=== PATIENT | female | born 1945 | race Caucasian/White ===

== ENCOUNTER → 2016-08-17 | Outpatient (CLI) | payer OTHER ==
[2014-04-19 22:51] VITALS: BP 181/75
--- NOTE | 2016-08-17 16:48 | CARD ---
APPROVED REPORT EXAM: Two-dimensional and M-mode echocardiogram with Doppler and color Doppler. Other Information Quality : GoodHR: 63bpm Rhythm : NSR INDICATION Dyspnea ELEVATED BNP 2D DIMENSIONS RVDd3.0 (2.9-3.5cm)Left Atrium(2D)4.0 (1.6-4.0cm) IVSd1.0 (0.7-1.1cm)Aortic Root(2D)2.5 (2.0-3.7cm) LVDd4.9 (3.9-5.9cm)LVOT Diameter2.0 (1.8-2.4cm) PWd1.0 (0.7-1.1cm)LVDs3.7 (2.5-4.0cm) FS (%) 24.6 %SV55.1 ml LVEF(%)52.3 (>50%) Aortic Valve AoV Peak Kenyon.145.3cm/sAoV VTI33.2cm AO Peak GR.8.4mmHgLVOT Peak Kenyon.99.7cm/s AO Mean GR.5mmHgAVA (VMAX)2.05cm2 RYAN (VTI)2.30cm2 Mitral Valve MV E Tlxxstqc466.2cm/sMV E Peak Gr.6mmHg MV DECEL [id number] A Sdiqirmu39.5cm/s MV E Mean Gr.2mmHgE/A Ratio1.3 MV A Bupmnryp729pu Tricuspid Valve TR P. Sslopyxt511ms/sRAP FEEIFALS4mzUr TR Peak Gr.13nsAgCUCJ78lzKl Pulmonary Vein S1 Gpifodyz75.1cm/sD2 Yhkxbebj14.0cm/s PVa kkgmgene04gknt LEFT VENTRICLE The left ventricle is normal size. There is normal left ventricular wall thickness. The left ventricu lar systolic function is normal and the ejection fraction is within normal range. The Ejection Fracti on is 50-55%. There is normal LV segmental wall motion. The left ventricular diastolic function and f illing is normal for age. There is no ventricular septal defect visualized. RIGHT VENTRICLE The right ventricle is normal size. There is normal right ventricular wall thickness. The right ventr icular systolic function is normal. ATRIA The left atrium size is normal. The right atrium size is normal. The interatrial septum is intact wit h no evidence for an atrial septal defect or patent foramen ovale as noted on 2-D or Doppler imaging. AORTIC VALVE The aortic valve is mildly calcified. The aortic valve is trileaflet. Doppler and Color Flow revealed no significant aortic regurgitation. There is no significant aortic valvular stenosis. MITRAL VALVE Mitral annular calcification is mild. There is no mitral valve stenosis. Doppler and Color Flow revea led mild to moderate mitral regurgitation. TRICUSPID VALVE The tricuspid valve is normal in structure. Doppler and Color Flow revealed mild tricuspid regurgitat ion. The PA pressure was estimated at 32 mmHg. There is no tricuspid valve stenosis. PULMONIC VALVE The pulmonary valve is normal in structure and function. Doppler and Color Flow revealed no pulmonic valvular regurgitation. There is no pulmonic valvular stenosis. GREAT VESSELS The aortic root is normal in size. The ascending aorta is normal in size. Normal pulmonary venous mario w (Doppler). The IVC is normal in size and collapses >50% with inspiration. PERICARDIAL EFFUSION There is no evidence of significant pericardial effusion. Critical Notification Critical Value: No <Conclusion> The left ventricle is normal size. The left ventricular systolic function is normal and the ejection fraction is within normal range. The Ejection Fraction is 50-55%. There is no significant aortic valvular stenosis. Doppler and Color Flow revealed no significant aortic regurgitation. Doppler and Color Flow revealed mild to moderate mitral regurgitation. Doppler and Color Flow revealed mild tricuspid regurgitation. The PA pressure was estimated at 32 mmHg.
== END | disposition home or self-care (01) ==
LOC: ECHO 09:04
PROVIDERS: ATTEND Nurse Practitioner Family
DX: R79.89 Other specified abnormal findings of blood chemistry (principal); R06.02 Shortness of breath; I51.7 Cardiomegaly
CPT/HCPCS: 93306

== ENCOUNTER → 2016-09-22 | Outpatient (CLI) | payer OTHER ==
[2014-04-19 22:51] VITALS: BP 181/75
[~2016-09-22] VITALS: Ht 167.6 cm; Wt 69.9 kg
[~2016-09-22] MED LIST: ALPR0.5T PO; INSU300I SQ; LISI10TA2 PO; OXYC-244 PO; REGADENOSON 0.4 MG/5 ML DISP.SYRIN. IV ONE; SIMV10TA3 PO
--- NOTE | 2016-09-22 12:45 | RAD ---
APPROVED REPORT Test Type: Pharmacological Stress Nurse/Tech: VENKATESH Dominguez Test Indications: SOA Cardiac History: See EHR Medications: See EHR Medical History: DM Resting ECG: SR Resting Heart Rate: 71 bpm Resting Blood Pressure: 162/82mmHg Pretest Chest Pain: NA Nurse/Tech Notes Lungs CTA. SR per monitor, S1S2. Denies pain Pharm. Details Pharmacologic stress testing was performed using 0.4mg per 5ml of regadenoson given intravenously ove r 7-10 seconds. Stress Symptoms No chest pain or symptoms. POST EXERCISE Reason for Termination: Infusion complete Target HR: No Max HR: 90 bpm Max Blood Pressure: 154/70mmHg Chest Pain: No. Arrhythmia: No. ST Change: No. INTERPRETATION Stress EKG Conclusion: No EKG evidence of vasodilator induced ischemic changes. Imaging Protocol IMAGE PROTOCOL: Rest Tc-99m/stress Tc-99m 1 day Rest: Stress: Viability: Radiopharm.Tc99m RmhmppygjKo08o Sestamibi Ygpm64wEr 33mCi Duration 15min. 10min. Img Date 09/22/2016 09/22/2016 Inj-Img Lktv45cwt. 60min. Rest Admin Site:IV - Right AntecubitalAdministrator:PEPE Garcia, ARRT (R)(N) Stress Admin Site: IV - Right AntecubitalAdministrator: Yaniv Xavier, RT (R)(N) STRESS DATA End Diast. Vol.88.0mlAv. Heart Rate84.0bpm End Syst. Vol.33.0mlCO Index BSA0.0L/min Myocardial Dwjs203.0gEject. Xjykpwhc44.0% Stress Rates Pk. Fill Rate3.10EDV/secLVtime Pk. Fill 201.76msec Pk. Empty Rate3.03ESV/secLVtime Pk. Hwwdv356.01msec 06/21 Pk. Fill0.68EDV/sec Stress Scores Regional WT2.00Summed WT19.00 Regional WM0.00Summed WM8.00 LV Perfusion There is a large sized, basal to distal inferior wall severe intensity defect that is partially rever sible in the apical segment and fixed in the mid and basal segments. Based upon normal wall motion on gated images, and lack of q waves on EKG, this most likely represents a diaphragmatic attenuation ar tifact but cannot rule out underlying ischemia/infarct. Wall Motion Grossly normal wall motion. LV Perf. Quant 17 Seg. SSS13.00 17 Seg. SRS8.00 17 Seg. SDS5.00 Stress Defect Extent (% LAD)10.00Rest Defect Extent (% LAD)0.00Rev. Defect Extent (% LAD)1.90 Stress Defect Extent (% LCX) 15.00Rest Defect Extent (% LCX)3.80Rev. Defect Extent (% LCX)0.00 Stress Defect Extent (% RCA)70.00Rest Defect Extent (% RCA)33.30Rev. Defect Extent (% RCA)64.40 Stress Defect Extent (% FELECIA)30.90Rest Defect Extent (% FELECIA)11.30Rev. Defect Extent (% FELECIA)19.60 Other Information Quality:Fair Risk Assessment: Low-Moderate Risk Conclusion 1. There is a large sized, basal to distal inferior wall severe intensity defect that is partially re versible in the apical segment and fixed in the mid and basal segments. Based upon normal wall motion on gated images, and lack of q waves on EKG, this most likely represents a diaphragmatic attenuation artifact but cannot rule out underlying ischemia/infarct. 2. No evidence of EKG changes 3. Normal EF at > 60% 4. Low to moderate risk study
== END | disposition home or self-care (01) ==
LOC: NM 07:50
PROVIDERS: ATTEND Internal Medicine Cardiovascular Disease
DX: R06.02 Shortness of breath (principal)
CPT/HCPCS: 78452; 93017; 96374; 96375; 96376; A9500; J2785

== ENCOUNTER 2016-10-31 06:49 | Outpatient (CLI) | payer OTHER ==
[~2016-10-31] VITALS: Ht 170.2 cm; Wt 72.6 kg
[2016-10-31] VITALS (13 sets, daily range): BP systolic 107–143; BP diastolic 54–74
[~2016-10-31 06:49] MED LIST changes: -REGADENOSON 0.4 MG/5 ML DISP.SYRIN. IV ONE
[2016-10-31] MEDS ORDERED: LIDOCAINE 2% 20 ML VIAL. ONE (07:07)
[2016-10-31] MEDS ORDERED: SERT50TA PO (07:16)
[2016-10-31] MEDS ORDERED: CITA20TA5 PO (07:16)
[2016-10-31] MEDS ORDERED: FURO20TA3 PO (07:16)
[2016-10-31] MEDS ORDERED: GEMF600T3 PO (07:16)
[2016-10-31 07:31] LABS: HEMATOCRIT 36.7 % (36.0-47.0); HEMOGLOBIN 12.5 g/dL (12.0-15.5); RED BLOOD COUNT 4.04 x10^6/uL (3.50-5.40); WHITE BLOOD COUNT 6.3 x10^3/uL (4.0-11.0)
[2016-10-31 07:39] LABS: INR 1.1 (0.8-1.1); PROTHROMBIN TIME PATIENT 13.2 SEC (11.7-14.0)
[2016-10-31 07:43] LABS: CALCIUM 9.4 mg/dL (8.5-10.1); CREATININE 1.3 mg/dL (0.6-1.0); GFR 40.5; POTASSIUM 4.3 mmol/L (3.5-5.1)
[2016-10-31] MEDS ORDERED: IOHEXOL 300 MG/ML 100ML VIAL. ONE (07:54)
[2016-10-31] MEDS ORDERED: MIDAZOLAM HCL/PF 5 MG/5 ML VIAL. ONE (08:03)
[2016-10-31] MEDS ORDERED: VERAPAMIL 5 MG/2 ML VIAL. ONE (08:03)
[2016-10-31] MEDS ORDERED: NITROGLYCERIN 200 MCG/2 ML SYRINGE FOR CATH/VASC LAB. ONE (08:03)
[2016-10-31] MEDS ORDERED: fentaNYL PF VIAL 250 MCG/5 ML VIAL ONE (08:03)
[2016-10-31] MEDS ORDERED: HEPARIN for IV BOLUS 10,000 UNIT/10 ML VIAL. ONE (08:03)
[2016-10-31] MEDS ORDERED: fentaNYL PF VIAL 250 MCG/5 ML VIAL IV ONE (08:30)
[2016-10-31] MEDS ORDERED: NITROGLYCERIN 200 MCG/2 ML SYRINGE FOR CATH/VASC LAB. IART ONE (08:30)
[2016-10-31] MEDS ORDERED: VERAPAMIL 5 MG/2 ML VIAL. IART ONE (08:30)
[2016-10-31] MEDS ORDERED: IOHEXOL 300 MG/ML 100ML VIAL. IART ONE (08:30)
[2016-10-31] MEDS ORDERED: CONTRAST GIVEN MC PRN (08:30)
[2016-10-31] MEDS ORDERED: HEPARIN for IV BOLUS 10,000 UNIT/10 ML VIAL. IART ONE (08:30)
[2016-10-31] MEDS ORDERED: MIDAZOLAM HCL/PF 5 MG/5 ML VIAL. IV ONE (08:30)
[2016-10-31] MEDS ORDERED: LIDOCAINE 2% 20 ML VIAL. IJ ONE (08:30)
[2016-10-31] MEDS ORDERED: IV 1/2 NORMAL SALINE 1,000 ML IV SCH (09:12)
--- NOTE | 2016-10-31 09:12 | PDOC ---
MODERATE SEDATION ASSESSMENT RISKS/ALTERNATIVES Risks/Alternatives Risks and alternatives of this type of sedation and procedure discussed with: RISK/ALTERNATIVES: Patient H & P ON CHART H & P H & P on chart and reviewed for co-morbid conditions and appropriate labs. H&P ON CHART: Yes STATUS PREG STATUS ASSESSED: N/A MEDS/ALLERGIES REVIEWED Meds/Allergies Reviewed Medications and Allergies including time and route of recently administered narcotics and sedatives. MEDS/ALLERGIES REVIEWED: Yes ASA RATING ASA RATING: II AIRWAY ASSESSMENT Airway Assessment Airway patency, oral function limitations, presence of caps, crowns, dentures, partials, and ability to extend neck assessed. AIRWAY ASSESSMENT: Yes MALLAMPATI SCORE MALLAMPATI SCORE: II PRE-SEDATION ASSESSMENT PRE-SEDATION ASSESSMENT: Yes AMARILIS ULRICH MD October 31, 2016 09:12
--- NOTE | 2016-10-31 09:37 | CARD ---
APPROVED REPORT Procedure(s) performed: Left heart catheterization, selective coronary angiography and left ventricul ography via right transradial approach. INDICATION The indication(s) include : unstable angina . PROCEDURE NARRATIVE After explaining the risks, benefits and alternative options, informed consent was obtained from sara ent. Patient was brought to the cardiac Phlebotomy Instructor and right wrist was prepped and draped in the usual fashion after confirming a positive modified Oscar's test. Arterial access was obtained in the rig t radial artery and a 6 Anguillan sheath was inserted. 6 Anguillan JL3.5 and 6F Napoleon catheters were used to perform selective angiography of the left and right coronary arteries. 6 Anguillan pigtail catheter was used to perform left ventriculography. Patient tolerated the procedure well. Hemostasis was ac hieved using TR band. There were no immediate complications. The following findings were noted. FINDINGS 1. Hemodynamics: Left ventricular end-diastolic pressure of 8 mmHg. No pullback gradient across the aortic valve. 2. Left ventriculography: Diaphragmatic wall hypokinesis with ejection fraction estimated at 55%. No significant mitral regurgitation seen. 3. Coronary angiography: a. The left main coronary artery arose from the left sinus of Valsalva, gave rise to the left anteri or descending and left circumflex arteries and did not show any significant stenosis. b. The left anterior descending artery showed long 90% stenosis involving the mid segment. c. The left circumflex artery showed 80% stenosis involving a large obtuse marginal branch. d. The right coronary artery was a dominant vessel arising from the right sinus of Valsalva that alex wed 100% chronic total occlusion involving proximal to mid segment with distal reconstitution from le ft to right collaterals. Conclusion 1. Severe three vessel coronary artery disease 2. Diaphragmatic wall hypokinesis with ejection fraction estimated at 55% Recommendations Cardiothoracic surgery team consult for coronary artery bypass surgery.
--- NOTE | 2016-10-31 14:29 | CARD ---
APPROVED REPORT EXAM: Two-dimensional and M-mode echocardiogram with Doppler and color Doppler. Other Information Quality : GoodHR: 64bpm Rhythm : NSR INDICATION SOA 2D DIMENSIONS RVDd2.4 (2.9-3.5cm)Left Atrium(2D)3.7 (1.6-4.0cm) IVSd1.1 (0.7-1.1cm)Aortic Root(2D)2.8 (2.0-3.7cm) LVDd5.3 (3.9-5.9cm)LVOT Diameter2.0 (1.8-2.4cm) PWd1.1 (0.7-1.1cm)LVDs4.0 (2.5-4.0cm) FS (%) 24.8 %SV65.5 ml LVEF(%)48.7 (>50%) Aortic Valve AoV Peak Kenyon.161.3cm/sAoV VTI35.4cm AO Peak GR.10.4mmHgLVOT VTI 19.99cm AO Mean GR.5mmHg Mitral Valve MV E Ehqugwcr71.6cm/sMV E Peak Gr.4mmHg MV DECEL [id number] A Vqxwnjel141.0cm/s MV E Mean Gr.2mmHgE/A Ratio0.9 MV A Msnjmwmy990ow TDI Lateral E' P. V9.20cm/sMedial E' P. V5.73cm/s E/Lateral E'9.5E/Medial E'15.3 Tricuspid Valve TR P. Gbewbugs055ay/sRAP RELGLKUF2gcLd TR Peak Gr.20mmHg Pulmonary Vein S1 Qedfndwu42.2cm/sS2 Yjzuqsjl16.80cm/s D2 Nisfimvh99.8cm/sPVa psusxyyn93ygsx LEFT VENTRICLE The left ventricle is normal size. There is mild concentric left ventricular hypertrophy. Left ventri hilton systolic function is normal The Ejection Fraction is 50-55%. Transmitral Doppler flow pattern is Grade I-abnormal relaxation pattern. There is no ventricular septal defect visualized. RIGHT VENTRICLE The right ventricle is normal size. There is normal right ventricular wall thickness. The right ventr icular systolic function is normal. ATRIA The left atrium is mildly dilated. The right atrium size is normal. The interatrial septum is intact with no evidence for an atrial septal defect or patent foramen ovale as noted on 2-D or Doppler imagi ng. AORTIC VALVE The aortic valve is mildly sclerotic. The aortic valve is trileaflet. Doppler and Color Flow revealed no significant aortic regurgitation. There is no significant aortic valvular stenosis. MITRAL VALVE Mitral annular calcification is mild. The mitral valve leaflets are thickened. There is no evidence o f mitral valve prolapse. There is no mitral valve stenosis. Doppler and Color Flow revealed moderate mitral regurgitation. TRICUSPID VALVE Doppler and Color Flow revealed mild tricuspid regurgitation. The pulmonary artery systolic pressure is estimated at 23 mmHg. There is no pulmonary hypertension. PULMONIC VALVE Doppler and Color Flow revealed no pulmonic valvular regurgitation. There is no pulmonic valvular oliverio nosis. GREAT VESSELS The aortic root is normal in size. The ascending aorta is normal in size. The pulmonary artery is nor mal. The IVC is normal in size and collapses >50% with inspiration. PERICARDIAL EFFUSION There is no evidence of significant pericardial effusion. Critical Notification Critical Value: No <Conclusion> Left ventricle systolic function is normal The Ejection Fraction is 50-55%. Transmitral Doppler flow pattern is Grade I-abnormal relaxation pattern. The left atrium is mildly dilated. Moderate mitral regurgitation. Mild tricuspid regurgitation. The pulmonary artery systolic pressure is estimated at 23 mmHg. There is no evidence of significant pericardial effusion.
--- NOTE | 2016-10-31 14:48 | PDOC2 ---
CONSULT Date of Consult Date of Consult DATE: 10/31/16 TIME: 14:44 Reason for Consult Reason for Consult: 3 vessel coronary artery disease Referring Physician Referring Physician: Dr Tyler Identification/Chief Complaint Chief Complaint SOB Source Source: Chart review, Patient History of Present Illness Reason for Visit: Patient is a 71 year old diabetic female, who presents with increasing SOB for several years, which has worsened over the past 3-4 months. She denies angina, palpitations, orthopnea. She had a positive stress test and today underwent coronary angiography which demonstrated an occluded proximal RCA which fills from L to R collaterals, a tight mid LAD stenosis and mid LCx with a large OM. LV function is preserved. I was consulted to consider the patient for surgical coronary revascularization. Past Medical History Cardiovascular: HTN, Hyperlipidemia GI: No pertinent hx Heme/Onc: No pertinent hx Hepatobiliary: No pertinent hx Psych: Anxiety, Depression Musculoskeletal: No pain Rheumatologic: No pertinent hx Infectious disease: No pertinent hx ENT: No pertinent hx Renal/: No pertinent hx Endocrine: Diabetes Dermatology: No pertinent hx Past Surgical History Past Surgical History: Family History Family History: Coronary Artery Disease, Diabetes, High Cholestrol, Hypertension Social History No ALCOHOL: none Lives: with Family Domestic Violence: Neg Current Medications Current Medications Current Medications Lidocaine HCl 20 ml STK-MED ONCE .ROUTE ; Start 10/31/16 at 07:07; Stop at 07:08; Status DC Heparin Sodium/ Sodium Chloride 1,000 ml @ As Directed STK-MED ONCE .ROUTE ; Start 10/31/16 at 07:07; Stop 10/31/16 at 07:08; Status DC Iohexol (Omnipaque 300 Mg/ml) 100 ml STK-MED ONCE .ROUTE ; Start 10/31/16 at 07: 54; Stop 10/31/16 at 07:55; Status DC Nitroglycerin (Nitroglycerin) 200 mcg STK-MED ONCE .ROUTE ; Start 10/31/16 at 08 :03; Stop 10/31/16 at 08:04; Status DC Verapamil HCl (Verapamil) 5 mg STK-MED ONCE .ROUTE ; Start 10/31/16 at 08:03; Stop 10/31/16 at 08:04; Status DC Midazolam HCl (Versed) 5 mg STK-MED ONCE .ROUTE ; Start 10/31/16 at 08:03; Stop 10/31/16 at 08:04; Status DC Fentanyl Citrate (Fentanyl 5ml Vial) 250 mcg STK-MED ONCE .ROUTE ; Start at 08:03; Stop 10/31/16 at 08:04; Status DC Heparin Sodium (Porcine) (Heparin Sodium) 10,000 unit STK-MED ONCE .ROUTE ; Start 10/31/16 at 08:03; Stop 10/31/16 at 08:04; Status DC Nitroglycerin (Nitroglycerin) 200 mcg 1X ONCE IART Last administered on 09:06; Start 10/31/16 at 08:30; Stop 10/31/16 at 08:31; Status DC Verapamil HCl (Verapamil) 2.5 mg 1X ONCE IART Last administered on 10/31/16 09:06; Start 10/31/16 at 08:30; Stop 10/31/16 at 08:31; Status DC Heparin Sodium (Porcine) (Heparin Sodium) 2,500 unit 1X ONCE IART Last administered on 10/31/16 09:05; Start 10/31/16 at 08:30; Stop 10/31/16 at 08:31 ; Status DC Heparin Sodium/ Sodium Chloride 1,000 unit 1X ONCE IART Last administered on 09:07; Start 10/31/16 at 08:30; Stop 10/31/16 at 08:31; Status DC Midazolam HCl (Versed) 5 mg 1X ONCE IV Last administered on 10/31/16 09:07; Start 10/31/16 at 08:30; Stop 10/31/16 at 08:31; Status DC Fentanyl Citrate (Fentanyl 5ml Vial) 250 mcg 1X ONCE IV Last administered on 09:07; Start 10/31/16 at 08:30; Stop 10/31/16 at 08:31; Status DC Iohexol (Omnipaque 300 Mg/ml) 100 ml 1X ONCE IART Last administered on 09:06; Start 10/31/16 at 08:30; Stop 10/31/16 at 08:31; Status DC Lidocaine HCl 20 ml 1X ONCE IJ Last administered on 10/31/16 09:05; Start at 08:30; Stop 10/31/16 at 08:31; Status DC Info (Do NOT chart on this entry -- for MONITORING) 1 each PRN DAILY PRN MC SEE COMMENTS; Start 10/31/16 at 08:30; Stop 11/02/16 at 08:29 Sodium Chloride 1,000 ml @ 60 mls/hr [id number] IV ; Start 10/31/16 at 09:12; Stop 11/01/16 at 09:11 Active Scripts Active Reported Gemfibrozil 600 Mg Tablet 600 Mg PO DAILY Citalopram Hbr (Citalopram Hydrobromide) 20 Mg Tablet 20 Mg PO DAILY Furosemide 20 Mg Tablet 20 Mg PO DAILY Zoloft (Sertraline Hcl) 50 Mg Tablet 50 Mg PO DAILY Toujeo Solostar (Insulin Glargine,Hum.rec.anlog) 300 Unit/1 Ml Insuln.pen 300 Unit SQ Xanax (Alprazolam) 0.5 Mg Tablet 1 Tab PO DAILY Percocet 7.5-325 Mg Tablet (Oxycodone/Acetaminophen) 1 Each Tablet 1 Tab PO BID Simvastatin 10 Mg Tablet 1 Tab PO QHS Lisinopril 10 Mg Tablet 1 Tab PO DAILY Allergies Allergies: Coded Allergies: Sulfa (Sulfonamide Antibiotics) (Verified Allergy, Intermediate, Rash, 09/22) ROS General: No: Chills, Night Sweats, Fatigue, Malaise, Appetite PSYCHOLOGICAL ROS: No: Anxiety, Behavioral Disorder, Concentration difficultie , Decreased libido, Depression, Disorientation, Hallucinations, Hostility, Irritablity, Memory difficulties, Mood Swings, Obsessive thoughts, Physical abuse, Sexual abuse, Sleep disturbances, Suicidal ideation Eyes: No Blurry vision, No Decreased vision, No Double vision, No Dry eyes, No Excessive tearing, No Eye Pain, No Itchy Eyes, No Loss of vision, No Photophobia , No Scotomata, No Uses contacts, No Uses glasses HEENT: No: Heacaches, Visual Changes, Hearing change, Nasal congestion, Nasal discharge, Oral lesions, Sinus pain, Sore Throat, Epistaxis, Sneezing, Snoring, Tinnitus, Vertigo, Vocal changes ALLERGY AND IMMUNOLOGY: No: Hives, Insect Bite Sensitivity, Itchy/Watery Eyes, Nasal Congestion, Post Nasal Drip, Seasonal Allergies ENDOCRINE: No: Breast Changes, Galactorrhea, Hair Pattern Changes, Hot Flashes , Malaise/lethargy, Mood Swings, Palpitations, Polydipsia/polyuria, Skin Changes , Temperature Intolerance, Unexpected Weight Changes Respiratory: YES: Shortness of breath, No: Cough, Hemoptysis, Orthopnea, Pleuritic Pain, SOB with excertion, Sputum Changes, Stridor, Tachypnea, Wheezing Cardiovascular: No Chest Pain, No Palpitations, No Orthopnea, No Paroxysmal Noc. Dyspnea, No Edema, No Lt Headedness Gastrointestinal: No Nausea, No Vomiting, No Abdominal Pain, No Diarrhea, No Constipation, No Melena, No Hematochezia Genitourinary: No Dysuria, No Frequency, No Incontinence, No Hematuria, No Retention, No Discharge, No Urgency, No Pain, No Flank Pain Musculoskeletal: No Gait Disturbance, No Joint Pain, No Joint Stiffness, No Joint Swelling, No Muscle Pain, No Muscular Weakness, No Pain In:, No Swelling In: Neurological: No Behavorial Changes, No Bowel/Bladder ControlChng, No Confusion , No Dizziness, No Gait Disturbance, No Headaches, No Impaired Coord/balance, No Memory Loss, No Numbness/Tingling, No Seizures, No Speech Problems, No Tremors, No Visual Changes, No Weakness Skin: No Dry Skin, No Eczema, No Hair Changes, No Lumps, No Mole Changes, No Mottling, No Nail Changes, No Pruritus, No Rash, No Skin Lesion Changes, No Acne Physical Exam General: Alert, Oriented X3, No acute distress HEENT: Atraumatic, PERRLA Lungs: Clear to auscultation, Normal air movement Heart: Regular rate, Normal S1, Normal S2 Abdomen: Soft, No tenderness, No hepatosplenomegaly Extremities: No edema Skin: No significant lesion Neuro: Normal gait, Normal speech, Strength at 5/5 X4 ext, Normal tone, Sensation intact, Cranial nerves 3-12 NL Psych/Mental Status: Mental status NL MUSCULOSKELETAL: No deformity Vitals VITALS Vital Signs Date Time Temp Pulse Resp B/P (MAP) Pulse Ox O2 Delivery O2 Flow Rate FiO2 10/31/16 12:00 58 14 96 Room Air 10/31/16 09:45 2.0 10/31/16 09:06 112/64 Labs Labs Laboratory Tests Test 10/31/16 07:15 White Blood Count 6.3 x10^3/uL (4.0-11.0) Red Blood Count 4.04 x10^6/uL (3.50-5.40) Hemoglobin 12.5 g/dL (12.0-15.5) Hematocrit 36.7 % (36.0-47.0) Mean Corpuscular Volume 91 fL (79-100) Mean Corpuscular Hemoglobin 31 pg (25-35) Mean Corpuscular Hemoglobin Concent 34 g/dL (31-37) Red Cell Distribution Width 15.0 % (11.5-14.5) Platelet Count 195 x10^3/uL (140-400) Prothrombin Time 13.2 SEC (11.7-14.0) Prothromb Time International Ratio 1.1 (0.8-1.1) Sodium Level 139 mmol/L (136-145) Potassium Level 4.3 mmol/L (3.5-5.1) Chloride Level 102 mmol/L (98-107) Carbon Dioxide Level 30 mmol/L (21-32) Anion Gap 7 (6-14) Blood Urea Nitrogen 32 mg/dL (7-20) Creatinine 1.3 mg/dL (0.6-1.0) Estimated GFR (Cockcroft-Gault) 40.5 Glucose Level 150 mg/dL (70-99) Calcium Level 9.4 mg/dL (8.5-10.1) Laboratory Tests Test 10/31/16 07:15 White Blood Count 6.3 x10^3/uL (4.0-11.0) Red Blood Count 4.04 x10^6/uL (3.50-5.40) Hemoglobin 12.5 g/dL (12.0-15.5) Hematocrit 36.7 % (36.0-47.0) Mean Corpuscular Volume 91 fL (79-100) Mean Corpuscular Hemoglobin 31 pg (25-35) Mean Corpuscular Hemoglobin Concent 34 g/dL (31-37) Red Cell Distribution Width 15.0 % (11.5-14.5) Platelet Count 195 x10^3/uL (140-400) Prothrombin Time 13.2 SEC (11.7-14.0) Prothromb Time International Ratio 1.1 (0.8-1.1) Sodium Level 139 mmol/L (136-145) Potassium Level 4.3 mmol/L (3.5-5.1) Chloride Level 102 mmol/L (98-107) Carbon Dioxide Level 30 mmol/L (21-32) Anion Gap 7 (6-14) Blood Urea Nitrogen 32 mg/dL (7-20) Creatinine 1.3 mg/dL (0.6-1.0) Estimated GFR (Cockcroft-Gault) 40.5 Glucose Level 150 mg/dL (70-99) Calcium Level 9.4 mg/dL (8.5-10.1) Images Images 1. Hemodynamics: Left ventricular end-diastolic pressure of 8 mmHg. No pullback gradient across the aortic valve. 2. Left ventriculography: Diaphragmatic wall hypokinesis with ejection fraction estimated at 55%. No significant mitral regurgitation seen. 3. Coronary angiography: a. The left main coronary artery arose from the left sinus of Valsalva, gave rise to the left anterior descending and left circumflex arteries and did not show any significant stenosis. b. The left anterior descending artery showed long 90% stenosis involving the mid segment. c. The left circumflex artery showed 80% stenosis involving a large obtuse marginal branch. d. The right coronary artery was a dominant vessel arising from the right sinus of Valsalva that showed 100% chronic total occlusion involving proximal to mid segment with distal reconstitution from left to right collaterals. Assessment/Plan Assessment/Plan 71-year-old female with diabetes, found to have severe three-vessel coronary artery disease and preserved left ventricular function. Coronary angiography demonstrated an occluded proximal RCA which fills from L to R collaterals, a tight mid LAD stenosis and mid LCx with a large OM. The patient is a candidate for CABG. I explained the risks, benefits and limitations. I quoted a mortality of 2%, renal failure 1-2%, stroke 1-2%, pneumonia 5%, re-sternotomy for bleeding 5-10% , wound infection 1%, perioperative AZ 5%, arrhythmias 20-30%. The patient and her family would like to discuss their options and will get back to me in due course with her final decision. She would need CABG 3 (DORANTES to LAD, SVG to OM, SVG to RPDA) If she decides to proceed with CABG we will need: Carotid duplex Noncontrast CT of the chest Bilateral lower extremity vein mapping PFTs Crossmatch 2 units Hold CALOS inhibitor 3 days prior to surgery EUNICE LUGO MD October 31, 2016 14:48
[2016-11-02] MEDS ORDERED: PARO20TA55 PO (10:48)
[2016-11-02] MEDS ORDERED: METF500T PO (10:49)
== END 2016-10-31 13:45 | disposition home or self-care (01) ==
LOC: CCL 06:49
PROVIDERS: ATTEND Internal Medicine Cardiovascular Disease
DX: I25.110 Atherosclerotic heart disease of native coronary artery with unstable angina pectoris (principal); I11.0 Hypertensive heart disease with heart failure; I50.40 Unspecified combined systolic (congestive) and diastolic (congestive) heart failure; E78.00 Pure hypercholesterolemia, unspecified; E11.9 Type 2 diabetes mellitus without complications; F41.9 Anxiety disorder, unspecified; F32.9 Major depressive disorder, single episode, unspecified; Z86.39 Personal history of other endocrine, nutritional and metabolic disease
CPT/HCPCS: 36415; 80048; 85027; 85610; 93306; 93458; C1769; C1892; J2250; J3010; J3490; Q9967

== ENCOUNTER → 2016-11-02 | Outpatient (CLI) | payer OTHER ==
[2016-10-31 12:00] VITALS: BP 143/74
[~2016-11-02] MED LIST changes: +CITA20TA5 PO; +FURO20TA3 PO; +GEMF600T3 PO; +METF500T PO; +PARO20TA55 PO; +SERT50TA PO
[2016-11-02 11:04] LABS: BASO % 1 % (0-3); EOS % 3 % (0-3); HEMATOCRIT 35.1 % (36.0-47.0); HEMOGLOBIN 12.3 g/dL (12.0-15.5); LYMPH # 1.7 x10^3/uL (1.0-4.8); LYMPH % 23 % (24-48); MEAN CORPUSCULAR HEMOGLOBIN 31 pg (25-35); MEAN CORPUSCULAR HGB CONC 35 g/dL (31-37); MEAN CORPUSCULAR VOLUME 89 fL (79-100); MONO % 6 % (0-9); NEUT % 68 % (31-73); PLATELET COUNT 179 x10^3/uL (140-400); RED BLOOD COUNT 3.94 x10^6/uL (3.50-5.40); RED CELL DISTRIBUTION WIDTH 14.5 % (11.5-14.5); WHITE BLOOD COUNT 7.3 x10^3/uL (4.0-11.0)
[2016-11-02 11:20] LABS: INR 1.1 (0.8-1.1); PROTHROMBIN TIME PATIENT 13.9 SEC (11.7-14.0)
--- NOTE | 2016-11-02 13:05 | RAD ---
CT of the chest without contrast, 11/02/2016: History: Shortness of breath, preop for CABG Noncontrast scans were obtained as requested. There is mild calcific plaquing involving the thoracic aorta without evidence of aneurysm. Moderate scattered coronary artery calcifications are present. No mediastinal adenopathy is seen. There is a calcified granuloma in the right upper lobe. There are a few small scattered parenchymal scars. No pulmonary mass or significant infiltrate is seen. There is no evidence of pleural fluid. Moderate multilevel degenerative change is present in the spine. There is a small density with coarse calcifications in the left subdiaphragmatic region along the left lateral margin of the left lobe of the liver and the superior margin of the gastric fundus. It measures approximately 4.0 x 1.5 cm. The presence of coarse calcifications suggest a chronic/benign etiology. IMPRESSION: 1. Calcific plaquing of the aorta and coronary arteries. 2. No acute chest abnormality is detected. 3. Small partially calcified left subdiaphragmatic mass as described above. It may be on a postinflammatory/infectious basis such as old granulomatous peritonitis or meconium peritonitis. A neoplastic etiology is less likely. CT follow-up may be considered to establish stability. PQRS Compliance Statement: One or more of the following individualized dose reduction techniques were utilized for this examination: 1. Automated exposure control 2. Adjustment of the mA and/or kV according to patient size 3. Use of iterative reconstruction technique
--- NOTE | 2016-11-02 13:26 | RAD ---
Chest, 2 views, 11/02/2016: History: Diabetes, preop for cardiac surgery The heart size and pulmonary vascularity are normal. No pulmonary infiltrate is seen. There is no evidence of pleural fluid. Moderate hypertrophic spurring is present in the spine. IMPRESSION: No acute cardiopulmonary abnormality is detected.
--- NOTE | 2016-11-02 13:30 | RAD ---
Bilateral lower extremity vein mapping, 11/02/2016: Preop evaluation for CABG Grayscale evaluation of the saphenous veins in both lower extremities was performed as requested. On the right, the greater saphenous vein is patent throughout the thigh measuring 3.1 to 8.7 mm. In the lower leg it splits and becomes quite small. The right lesser saphenous vein measures 2.0 to 4.5 mm. The left greater saphenous vein is patent in the thigh measuring 3.3 to 6.1 mm. It measures 2.0 mm at the popliteal fossa level. It is too small to clearly visualize in the left lower leg. The left lesser saphenous vein is patent measuring 2.7 to 5.0 mm. IMPRESSION: Patent greater saphenous veins in both thighs and patent lesser saphenous veins in both lower legs with measurements as described above and fully delineated on the technologist worksheet available in the [employer] PACS system.
--- NOTE | 2016-11-02 13:39 | RAD ---
Examination: Ultrasound carotid History: History of CABG preoperative comparison: None available Carotid duplex ultrasound, 11/02/2016 1:33 PM TECHNIQUE: Multiple transverse and longitudinal sonographic images were obtained of the extracranial carotid and vertebral arteries in conjunction with duplex Doppler sonography. NASCET criteria were utilized. FINDINGS: There are moderate atherosclerotic plaque identified in the left carotid bulbs and the proximal internal/external carotid arteries. The right CCA peak systolic velocity is 76 centimeters per second. The right ICA peak systolic velocity is 100 centimeters per second. The right ICA/CCA ratio is 1.31. The left CCA peak systolic velocity is 93 centimeters per second. The left ICA peak systolic velocity is 251 centimeters per second. The left ICA/CCA ratio is 2.76. Both vertebral arteries demonstrate normal antegrade flow. IMPRESSION: 1. Elevated velocity identified in the left internal carotid artery with stenosis ranges between 50-69% stenosis. 2. No evidence of a significant stenosis identified in the right carotid arterial system.
[2016-11-02 14:56] LABS: ALBUMIN/GLOBULIN RATIO 0.8 (1.0-1.7); CALCIUM 9.8 mg/dL (8.5-10.1); CREATININE 1.3 mg/dL (0.6-1.0); GFR 40.5; POTASSIUM 4.3 mmol/L (3.5-5.1); TOTAL BILIRUBIN 0.5 mg/dL (0.2-1.0); TOTAL PROTEIN 8.9 g/dL (6.4-8.2)
--- NOTE | 2016-11-02 16:05 | EKG ---
[facility] [address] [place] [address] Test Date: 2016-11-02 Test Time: 16:06:52 Pat Name: ENOC DOTSON Department: Room: Gender: F Leather Coater: : 1945 Requested By: EUNICE LUGO Order Number: [id number] Reading MD: Measurements Intervals [place] Rate: 71 P: -41 NE: 160 QRS: 13 QRSD: 94 T: 65 QT: 396 QTc: 435 Interpretive Statements SINUS RHYTHM T ABNORMALITY IN HIGH LATERAL LEADS ABNORMAL ECG RI6.01 No previous ECG available for comparison
--- NOTE | 2016-11-03 18:02 | RESP ---
DATE OF SERVICE: 11/02/2016 ATTENDING PHYSICIAN: Dr. Rothman. The patient's FVC was 2.0 which is 67% of predicted. FEV1 was 1.58 which is 70% of predicted. The FEV1/FVC ratio was normal. FEF 25-75 was also 80% of predicted. There was no response to bronchodilators. Lung volumes were not performed. Diffusion capacity was normal. IMPRESSION: 1. No significant obstructive airway disease, but spirometry is suggestive of a restrictive pattern. I would recommend repeating total lung capacity/lung volumes at a later date to assess for restrictive lung disease. 2. No response to bronchodilators. 3. Normal diffusion capacity. ROSSY CUELLAR MD DR: LILIYA/alexandra JOB#: [id number] / [id number]
== END | disposition home or self-care (01) ==
LOC: SURGPAT 10:30
PROVIDERS: ATTEND Thoracic Surgery (Cardiothoracic Vascular Surgery)
DX: Z01.818 Encounter for other preprocedural examination (principal); R06.02 Shortness of breath; I65.23 Occlusion and stenosis of bilateral carotid arteries
CPT/HCPCS: 36415; 71020; 71250; 80053; 83036; 85027; 85610; 85730; 87641; 93005; 93880; 93970; 94060; 94729

== ENCOUNTER 2016-11-03 05:55 | Inpatient (IN) | payer OTHER ==
[2016-11-03] VITALS (9 sets, daily range): BP systolic 42–130; BP diastolic 41–54
[~2016-11-03] VITALS: Ht 162.6 cm; Wt 74.9 kg
[2016-11-03] MEDS ORDERED: HEPARIN 20,000 UNIT in IV RINGERS,LACTATED 1000ML 1,000 ML IRR ONE (06:00)
[2016-11-03] MEDS ORDERED: POTASSIUM CHLORIDE 70 MEQ, SODIUM BICARBONATE VIAL 12.5 MEQ, LIDOCAINE 2% 24 ML in IV E... IRR ONE (06:00)
[2016-11-03] MEDS ORDERED: POTASSIUM CHLORIDE 15 MEQ, SODIUM BICARBONATE VIAL 12.5 MEQ in IV ELECTROLYTE-S (PH 7.4... IRR ONE (06:00)
[2016-11-03] MEDS ORDERED: MIDAZOLAM HCL/PF 2 MG/2 ML VIAL. ONE ×2 (06:09→12:00)
[2016-11-03] MEDS ORDERED: ROCURONIUM 100 MG/10 ML VIAL. ONE ×2 (06:09→10:39)
[2016-11-03] MEDS ORDERED: SUFentanil 100 MCG/2 ML AMPUL. ONE ×2 (06:09→09:12)
[2016-11-03] MEDS ORDERED: ePHEDrine PF IN SALINE 50 MG/5 ML DISP.SYRIN IV ONE (06:12)
[2016-11-03] MEDS ORDERED: ETOMIDATE 20 MG/10 ML VIAL. IV ONE (06:13)
[2016-11-03] MEDS ORDERED: ISOFLURANE > 120 MINUTES. IH ONE ×2 (06:13→13:19)
[2016-11-03] MEDS ORDERED: PHENYLEPHRINE 10 MG/ML VIAL. ONE ×3 (06:13)
[2016-11-03] MEDS ORDERED: LIDOCAINE 2% PF Vial for OR 5 ML VIAL. ONE ×2 (06:13→12:56)
[2016-11-03] MEDS ORDERED: NITROGLYCERIN PREMIX 250 ML IV ONE (06:13)
[2016-11-03] MEDS ORDERED: HEPARIN for IV BOLUS 10,000 UNIT/10 ML VIAL. ONE ×4 (06:13)
[2016-11-03] MEDS ORDERED: AMINOCAPROIC ACID 5,000 MG/20 ML VIAL. IV ONE ×3 (06:18)
[2016-11-03] MEDS ORDERED: NOREPINEPHRIN PREMIX 250 ML IV PRN ×2 (06:30→11:45)
[2016-11-03] MEDS ORDERED: PAPAVERINE 60 MG/2 ML VIAL FOR OR ONLY. ONE (06:58)
[2016-11-03] MEDS ORDERED: ASPIRIN 300 MG SUPP.RECT ONE (06:58)
[2016-11-03] MEDS ORDERED: VANCOMYCIN 10GM VIAL for OR. ONE (06:58)
[2016-11-03] MEDS ORDERED: SURGICEL HEMOSTAT 4X8 EACH. ONE (06:58)
[2016-11-03] MEDS ORDERED: 0.9 % SODIUM CHLORIDE 50 ML VIAL. IJ ONE (06:58)
[2016-11-03] MEDS ORDERED: INSULIN REGULAR VIAL 150 UNIT in 0.9 % SODIUM CHLORIDE 150ML 150 ML IV PRN (07:00)
[2016-11-03] MEDS ORDERED: LIDOCAINE 1% 1 ML SYRINGE. ID PRN (07:00)
[2016-11-03] MEDS ORDERED: IV RINGERS,LACTATED 1000ML 1,000 ML IV SCH (07:00)
[2016-11-03] MEDS ORDERED: HYDROmorphone 2 MG/ML VIAL IV PRN (07:00)
[2016-11-03] MEDS ORDERED: PROCHLORPERAZINE 10 MG/2 ML VIAL. IV PRN (07:00)
[2016-11-03] MEDS ORDERED: ESTROGENS, CONJ VAGINAL CREAM 30GM TUBE. ONE (07:00)
[2016-11-03] MEDS ORDERED: MORPHINE SULFATE 2 MG/ML DISP.SYRIN. IV PRN (07:00)
[2016-11-03] MEDS ORDERED: fentaNYL PF VIAL 100 MCG/2 ML VIAL IV PRN ×2 (07:00)
[2016-11-03] MEDS ORDERED: EPINEPHrine SYRINGE 1 MG/10 ML SYRINGE ONE (07:52)
--- NOTE | 2016-11-03 08:10 | PDOC1 ---
History and Physical Date of Admission Date of Admission DATE: 11/03/16 TIME: 08:04 Identification/Chief Complaint Chief Complaint SOB Problems: Source Source: Chart review, Patient History of Present Illness History of Present Illness Patient is a 71 year old diabetic female, who presents with SOB/NSTEMI. She had a positive stress test and underwent coronary angiography which demonstrated severe 3 vessel disease. LV function is preserved She is here today for elective CABG. Past Medical History Cardiovascular: HTN, Hyperlipidemia GI: No pertinent hx Heme/Onc: No pertinent hx Hepatobiliary: No pertinent hx Psych: Anxiety, Depression Musculoskeletal: No pain Rheumatologic: No pertinent hx Infectious disease: No pertinent hx Renal/: No pertinent hx Endocrine: Diabetes Past Surgical History Past Surgical History: Family History Family History: Coronary Artery Disease, Diabetes, High Cholestrol, Hypertension Social History ALCOHOL: none Current Medications Current Medications Current Medications Cefazolin Sodium 1 gm/Sodium Chloride 500 ml @ 500 mls/hr 1X PERIOP ONCE IRR ; Start 11/03/16 at 08:00; Stop 11/03/16 at 08:59 Potassium Chloride 70 meq/ Sodium Bicarbonate 12.5 meq/Lidocaine HCl 24 ml/ Parenteral Electrolytes 571.5 ml @ 571.5 mls/ hr 1X PERIOP ONCE IRR ; Start at 06:00; Stop 11/03/16 at 06:59; Status DC Potassium Chloride 15 meq/ Sodium Bicarbonate 12.5 meq/Parenteral Electrolytes 520 ml @ 520 mls/hr 1X PERIOP ONCE IRR ; Start 11/03/16 at 06:00; Stop at 06:59; Status DC Heparin Sodium (Porcine) 87260 unit/Ringer's Solution 1,020 ml @ 1,020 mls/hr 1X PERIOP ONCE IRR ; Start 11/03/16 at 06:00; Stop 11/03/16 at 06:59; Status DC Fentanyl Citrate (Fentanyl 2ml Vial) 25 mcg PRN Q5MIN PRN IV MILD PAIN; Start 11/03/16 at 07:00; Stop 11/03/16 at 18:00 Fentanyl Citrate (Fentanyl 2ml Vial) 50 mcg PRN Q5MIN PRN IV MODERATE PAIN; Start 11/03/16 at 07:00; Stop 11/03/16 at 18:00 Morphine Sulfate 1 mg PRN Q10MIN PRN IV SEVERE PAIN; Start 11/03/16 at 07:00; Stop 11/03/16 at 18:00 Ringer's Solution 1,000 ml @ 30 mls/hr Q24H IV Last administered on 11/03/16t 06:45; Start 11/03/16 at 07:00; Stop 11/03/16 at 18:59 Lidocaine HCl 2 ml PRN 1X PRN ID PRIOR TO IV START; Start 11/03/16 at 07:00; Stop 11/03/16 at 18:00 Hydromorphone HCl (Dilaudid) 0.5 mg PRN Q10MIN PRN IV SEV PAIN, Second choice; Start 11/03/16 at 07:00; Stop 11/03/16 at 18:00 Prochlorperazine Edisylate (Compazine) 5 mg PACU PRN PRN IV NAUSEA, MRX1; Start 11/03/16 at 07:00; Stop 11/03/16 at 18:00 Cefazolin Sodium/ Dextrose 50 ml @ 100 mls/hr 1X PREOP PRN IV PRIOR TO PROCEDURE; Start 11/03/16 at 06:00; Stop 11/03/16 at 18:00 Midazolam HCl (Versed) 2 mg STK-MED ONCE .ROUTE ; Start 11/03/16 at 06:09; Stop 11/03/16 at 06:10; Status DC Rocuronium [place] (Zemuron) 100 mg STK-MED ONCE .ROUTE ; Start 11/03/16 at 06: 09; Stop 11/03/16 at 06:10; Status DC Sufentanil Citrate (Sufenta) 100 mcg STK-MED ONCE .ROUTE ; Start 11/03/16 at 06: 09; Stop 11/03/16 at 06:10; Status DC Ephedrine Sulfate 50 mg STK-MED ONCE IV ; Start 11/03/16 at 06:12; Stop at 06:13; Status DC Isoflurane (Isoflurane) 90 ml STK-MED ONCE IH ; Start 11/03/16 at 06:13; Stop at 06:14; Status DC Heparin Sodium (Porcine) (Heparin Sodium) 10,000 unit STK-MED ONCE .ROUTE ; Start 11/03/16 at 06:13; Stop 11/03/16 at 06:14; Status DC Heparin Sodium (Porcine) (Heparin Sodium) 10,000 unit STK-MED ONCE .ROUTE ; Start 11/03/16 at 06:13; Stop 11/03/16 at 06:14; Status DC Heparin Sodium (Porcine) (Heparin Sodium) 10,000 unit STK-MED ONCE .ROUTE ; Start 11/03/16 at 06:13; Stop 11/03/16 at 06:14; Status DC Heparin Sodium (Porcine) (Heparin Sodium) 10,000 unit STK-MED ONCE .ROUTE ; Start 11/03/16 at 06:13; Stop 11/03/16 at 06:14; Status DC Phenylephrine HCl (Darrell-Synephrine Inj) 10 mg STK-MED ONCE .ROUTE ; Start at 06:13; Stop 11/03/16 at 06:14; Status DC Phenylephrine HCl (Darrell-Synephrine Inj) 10 mg STK-MED ONCE .ROUTE ; Start at 06:13; Stop 11/03/16 at 06:14; Status DC Phenylephrine HCl (Darrell-Synephrine Inj) 10 mg STK-MED ONCE .ROUTE ; Start at 06:13; Stop 11/03/16 at 06:14; Status DC Etomidate (Amidate) 20 mg STK-MED ONCE IV ; Start 11/03/16 at 06:13; Stop at 06:14; Status DC Norepinephrine Bitartrate 250 ml @ 1.875 mls/ hr CONT PRN IV SEE I/O RECORD; Start 11/03/16 at 06:30; Stop 11/03/16 at 12:00 Lidocaine HCl (Lidocaine Pf 2% Vial) 5 ml STK-MED ONCE .ROUTE ; Start 11/03/16 at 06:13; Stop 11/03/16 at 06:14; Status DC Nitroglycerin/ Dextrose 250 ml @ As Directed STK-MED ONCE IV ; Start 11/03/16 at 06:13; Stop 11/03/16 at 06:14; Status DC Aminocaproic Acid (Amicar) 5,000 mg STK-MED ONCE IV ; Start 11/03/16 at 06:18; Stop 11/03/16 at 06:19; Status DC Aminocaproic Acid (Amicar) 5,000 mg STK-MED ONCE IV ; Start 11/03/16 at 06:18; Stop 11/03/16 at 06:19; Status DC Aminocaproic Acid (Amicar) 5,000 mg STK-MED ONCE IV ; Start 11/03/16 at 06:18; Stop 11/03/16 at 06:19; Status DC Insulin Human Regular 150 unit/ Sodium Chloride 151.5 ml @ 0 mls/hr CONT PRN IV SEE I/O RECORD; Start 11/03/16 at 07:00; Stop 11/03/16 at 12:00 Cellulose 1 each STK-MED ONCE .ROUTE ; Start 11/03/16 at 06:58; Stop 11/03/16 at 06:59; Status DC Vancomycin HCl (Vanco) 10 gm STK-MED ONCE .ROUTE ; Start 11/03/16 at 06:58; Stop 11/03/16 at 06:59; Status DC Papaverine HCl 60 mg STK-MED ONCE .ROUTE ; Start 11/03/16 at 06:58; Stop at 06:59; Status DC Aspirin (Aspirin) 300 mg STK-MED ONCE .ROUTE ; Start 11/03/16 at 06:58; Stop at 06:59; Status DC Sodium Chloride (Sodium Chloride) 50 ml STK-MED ONCE IJ ; Start 11/03/16 at 06: 58; Stop 11/03/16 at 06:59; Status DC Estrogens Conjugated (Premarin) 30 hakeem STK-MED ONCE .ROUTE ; Start 11/03/16 at 07:00; Stop 11/03/16 at 07:01; Status Cancel Epinephrine HCl (Epinephrine Syringe) 1 mg STK-MED ONCE .ROUTE ; Start 11/03/16 at 07:52; Stop 11/03/16 at 07:53; Status DC Active Scripts Active Reported Glucophage (Metformin Hcl) 500 Mg Tablet 500 Mg PO BIDWMEALS Paxil (Paroxetine Hcl) 20 Mg Tablet 20 Mg PO DAILY Gemfibrozil 600 Mg Tablet 600 Mg PO DAILY Citalopram Hbr (Citalopram Hydrobromide) 20 Mg Tablet 20 Mg PO DAILY Furosemide 20 Mg Tablet 20 Mg PO DAILY Zoloft (Sertraline Hcl) 50 Mg Tablet 50 Mg PO DAILY Toujeo Solostar (Insulin Glargine,Hum.rec.anlog) 300 Unit/1 Ml Insuln.pen 300 Unit SQ Xanax (Alprazolam) 0.5 Mg Tablet 1 Tab PO DAILY Percocet 7.5-325 Mg Tablet (Oxycodone/Acetaminophen) 1 Each Tablet 1 Tab PO BID Simvastatin 10 Mg Tablet 1 Tab PO QHS Lisinopril 10 Mg Tablet 1 Tab PO DAILY Allergies Allergies: Coded Allergies: Sulfa (Sulfonamide Antibiotics) (Verified Allergy, Intermediate, Rash, ) ROS General: No: Chills, Night Sweats, Fatigue, Malaise, Appetite PSYCHOLOGICAL ROS: No: Anxiety, Behavioral Disorder, Concentration difficultie , Decreased libido, Depression, Disorientation, Hallucinations, Hostility, Irritablity, Memory difficulties, Mood Swings, Obsessive thoughts, Physical abuse, Sexual abuse, Sleep disturbances, Suicidal ideation Eyes: No Blurry vision, No Decreased vision, No Double vision, No Dry eyes, No Excessive tearing, No Eye Pain, No Itchy Eyes, No Loss of vision, No Photophobia , No Scotomata, No Uses contacts, No Uses glasses HEENT: No: Heacaches, Visual Changes, Hearing change, Nasal congestion, Nasal discharge, Oral lesions, Sinus pain, Sore Throat, Epistaxis, Sneezing, Snoring, Tinnitus, Vertigo, Vocal changes ALLERGY AND IMMUNOLOGY: No: Hives, Insect Bite Sensitivity, Itchy/Watery Eyes, Nasal Congestion, Post Nasal Drip, Seasonal Allergies Hematological and Lymphatic: No: Bleeding Problems, Blood Clots, Blood Transfusions, Brusing, Night Sweats, Pallor, Swollen Lymph Nodes ENDOCRINE: No: Breast Changes, Galactorrhea, Hair Pattern Changes, Hot Flashes , Malaise/lethargy, Mood Swings, Palpitations, Polydipsia/polyuria, Skin Changes , Temperature Intolerance, Unexpected Weight Changes Breast: No New/Changing Breast Lumps, No Nipple changes, No Nipple discharge Respiratory: YES: Shortness of breath, No: Cough, Hemoptysis, Orthopnea, Pleuritic Pain, SOB with excertion, Sputum Changes, Stridor, Tachypnea, Wheezing Cardiovascular: No Chest Pain, No Palpitations, No Orthopnea, No Paroxysmal Noc. Dyspnea, No Edema, No Lt Headedness Gastrointestinal: No Nausea, No Vomiting, No Abdominal Pain, No Diarrhea, No Constipation, No Melena, No Hematochezia Genitourinary: No Dysuria, No Frequency, No Incontinence, No Hematuria, No Retention, No Discharge, No Urgency, No Pain, No Flank Pain Musculoskeletal: No Gait Disturbance, No Joint Pain, No Joint Stiffness, No Joint Swelling, No Muscle Pain, No Muscular Weakness, No Pain In:, No Swelling In: Neurological: No Behavorial Changes, No Bowel/Bladder ControlChng, No Confusion , No Dizziness, No Gait Disturbance, No Headaches, No Impaired Coord/balance, No Memory Loss, No Numbness/Tingling, No Seizures, No Speech Problems, No Tremors, No Visual Changes, No Weakness Skin: Yes Other, No Dry Skin, No Eczema, No Hair Changes, No Lumps, No Mole Changes, No Mottling, No Nail Changes, No Pruritus, No Rash, No Skin Lesion Changes, No Acne Physical Exam General: Alert, Oriented X3, No acute distress HEENT: Atraumatic, PERRLA Lungs: Clear to auscultation, Normal air movement Heart: S1S2, RRR, no gallops, no murmurs Breasts: Normal Abdomen: Normal bowel sounds, Soft, No tenderness, No hepatosplenomegaly Rectal Exam: not examined Extremities: No edema, Normal pulses Skin: No significant lesion Neuro: Normal gait, Normal speech, Strength at 5/5 X4 ext, Normal tone, Sensation intact, Cranial nerves 3-12 NL Psych/Mental Status: Mental status NL Vitals Vitals Vital Signs Date Time Temp Pulse Resp B/P (MAP) Pulse Ox O2 Delivery O2 Flow Rate FiO2 11/03/16 06:30 Room Air 11/03/16 06:30 98.5 74 20 98 98.5 11/03/16 06:16 145/69 Labs Labs Laboratory Tests Test 11/03/16 06:43 Glucose (Fingerstick) 174 mg/dL (70-99) Laboratory Tests Test 11/03/16 06:43 Glucose (Fingerstick) 174 mg/dL (70-99) VTE Prophylaxis Ordered VTE Prophylaxis Devices: Yes VTE Pharmacological Prophylaxi: Contraindicated Assessment/Plan Assessment/Plan 71 year old diabetic female, who presents with SOB/NSTEMI. She had a positive stress test and underwent coronary angiography which demonstrated severe 3 vessel disease. LV function is preserved. Plan for CABG x 3 (DORANTES to LAD, SVG to OM, SVG to RPDA) Risks explained and accepted. Informed consent obtained. EUNICE LUGO MD November 03, 2016 08:10
[2016-11-03] MEDS ORDERED: ALBUMIN HUMAN IV ONE (10:00)
[2016-11-03] MEDS ORDERED: ALBUMIN HUMAN 25% 100 ML IV ONE (11:11)
[2016-11-03] MEDS ORDERED: PROTAMINE 250 MG/25 ML VIAL IV ONE (11:48)
[2016-11-03] MEDS ORDERED: MAGNESIUM SULFATE 5 GM/10 ML VIAL. ONE (12:56)
[2016-11-03] MEDS ORDERED: MANNITOL 25% 12.5 G/50 ML VIAL FOR OR. ONE (12:56)
[2016-11-03] MEDS ORDERED: CALCIUM CHLORIDE 1,000 MG/10 ML DISP.SYRIN IV ONE (12:56)
[2016-11-03] MEDS ORDERED: ALBUMIN HUMAN 25% 200 ML IV ONE (12:56)
[2016-11-03] MEDS ORDERED: HEPARIN 30,000 UNIT/30 ML VIAL. ONE (12:56)
[2016-11-03 13:02] LABS: WHITE BLOOD COUNT 4.3 x10^3/uL (4.0-11.0)
[2016-11-03 13:08] LABS: HEMATOCRIT 17.2 % (36.0-47.0); HEMOGLOBIN 5.9 g/dL (12.0-15.5)
[2016-11-03 13:14] LABS: INR 1.8 (0.8-1.1); PROTHROMBIN TIME PATIENT 19.6 SEC (11.7-14.0)
[2016-11-03] MEDS ORDERED: BISACODYL 10 MG SUPP.RECT. PR PRN (13:45)
[2016-11-03] MEDS ORDERED: AMIODARONE 900 MG in IV DEXTROSE 5% 500 ML IV PRN (13:45)
[2016-11-03] MEDS ORDERED: PROPOFOL 100 ML IV PRN (13:45)
[2016-11-03] MEDS ORDERED: ASPIRIN 300 MG SUPP.RECT PR PRN (13:45)
[2016-11-03] MEDS ORDERED: ALBUTEROL SULFATE 2.5 MG/3 ML NEBU. NEB PRN (13:45)
[2016-11-03] MEDS ORDERED: KCL PER PROTOCOL MC PRN (13:45)
[2016-11-03] MEDS ORDERED: MAGNESIUM SULFATE 1GM 100 ML IV PRN (13:45)
[2016-11-03] MEDS ORDERED: ACETAMINOPHEN 650 MG SUPP.RECT. PR PRN (13:45)
[2016-11-03] MEDS ORDERED: ELECTROLYTE (ICU) PROTOCOL. MC PRN (13:45)
[2016-11-03] MEDS ORDERED: DEXTROSE 50% 25 GM / 50ML DISP.SYRIN. IV PRN (13:45)
[2016-11-03] MEDS ORDERED: AMIODARONE 150 MG in IV DEXTROSE 5% 100 ML IV PRN (13:45)
[2016-11-03] MEDS ORDERED: 0.9 % SODIUM CHLORIDE 10 ML DISP.SYRIN. IV PRN (13:45)
[2016-11-03] MEDS ORDERED: ONDANSETRON PF 4 MG/2 ML VIAL. IV PRN (13:45)
[2016-11-03] MEDS ORDERED: ACETAMINOPHEN 325 MG TABLET. PO PRN (13:45)
[2016-11-03] MEDS: IV RINGERS,LACTATED 1000ML 1,000 ML IV SCH (14:14)
[2016-11-03] MEDS: CLEVIDIPINE BUTYRATE 100 ML IV PRN (14:14)
[2016-11-03 14:21] LABS: ART BE ISTAT 4 mmol/L (0-3); ART GLUC ISTAT 174 mg/dL (70-99); ART HCO3 ISTAT 27 mmol/L (21-28); ART HCT ISTAT 28 % (36-40); ART HGB ISTAT 9.5 g/dL (12-15); ART ION CA ISTAT 1.22 mmol/L (1.13-1.32); ART K ISTAT 3.9 mmol/L (3.5-5.0); ART NA ISTAT 140 mmol/L (135-145); ART PCO2 ISTAT 33 mmHg (35-45); ART PH ISTAT 7.52 (7.35-7.45); ART PO2 ISTAT 400 mmHg (75-100); ART SAT O2 SAT 100 % (95-99); ART TCO2 ISTAT 28 mmol/L (21-32); TOSPEC ART
--- NOTE | 2016-11-03 14:21 | PDOC ---
BRIEF OPERATIVE NOTE Date: November 03, 2016 Pre-Op Diagnosis Coronary artery disease NSTEMI Diabetes Hypertension Hyperlipidemia Chronic obstructive pulmonary disease Post-Op Diagnosis Coronary artery disease NSTEMI Diabetes Hypertension Hyperlipidemia Chronic obstructive pulmonary disease Procedure Performed Coronary artery bypass grafting 3 (left internal mammary artery to the left anterior descending artery, saphenous vein graft to the obtuse marginal, saphenous vein graft to distal right coronary artery) Left endoscopic greater saphenous vein harvesting Surgeon Eunice Lugo MD Dope Maintenance Worker Isis Ochoa, SCIENTIFIC ARTISTRojas Hampton [facility] Anesthesiologist Dr Marrero Anesthesia Type: General Blood Loss Cellsaver IV Fluid Cellsaver: 500 mls Crystalloid: 1000 mls Urine Output 750 mls Specimens Obtained None Findings Good 2 mm LAD, OM and distal RCA targets Good quality conduits Normal LV function Complications None Additional Remarks Cardiopulmonary bypass time: 114 minutes X-clamp time 93 minutes EUNICE LUGO MD November 03, 2016 14:21
[2016-11-03 14:22] LABS: ART BE ISTAT 1 mmol/L (0-3); ART GLUC ISTAT 134 mg/dL (70-99); ART HCO3 ISTAT 25 mmol/L (21-28); ART HCT ISTAT 20 % (36-40); ART HGB ISTAT 6.8 g/dL (12-15); ART ION CA ISTAT 1.09 mmol/L (1.13-1.32); ART K ISTAT 4.1 mmol/L (3.5-5.0); ART NA ISTAT 137 mmol/L (135-145); ART PCO2 ISTAT 37 mmHg (35-45); ART PH ISTAT 7.44 (7.35-7.45); ART PO2 ISTAT 312 mmHg (75-100); ART SAT O2 SAT 100 % (95-99); ART TCO2 ISTAT 26 mmol/L (21-32); TOSPEC ART
[2016-11-03 14:22] LABS: ART BE ISTAT 2 mmol/L (0-3); ART GLUC ISTAT 138 mg/dL (70-99); ART HCO3 ISTAT 26 mmol/L (21-28); ART HCT ISTAT 20 % (36-40); ART HGB ISTAT 6.8 g/dL (12-15); ART ION CA ISTAT 1.06 mmol/L (1.13-1.32); ART K ISTAT 3.8 mmol/L (3.5-5.0); ART NA ISTAT 140 mmol/L (135-145); ART PCO2 ISTAT 36 mmHg (35-45); ART PH ISTAT 7.46 (7.35-7.45); ART PO2 ISTAT 338 mmHg (75-100); ART SAT O2 SAT 100 % (95-99); ART TCO2 ISTAT 27 mmol/L (21-32); TOSPEC ART
[2016-11-03 14:22] LABS: ART BE ISTAT 0 mmol/L (0-3); ART GLUC ISTAT 84 mg/dL (70-99); ART HCO3 ISTAT 24 mmol/L (21-28); ART HCT ISTAT 21 % (36-40); ART HGB ISTAT 7.1 g/dL (12-15); ART ION CA ISTAT 1.52 mmol/L (1.13-1.32); ART K ISTAT 3.3 mmol/L (3.5-5.0); ART NA ISTAT 141 mmol/L (135-145); ART PCO2 ISTAT 38 mmHg (35-45); ART PH ISTAT 7.41 (7.35-7.45); ART PO2 ISTAT 289 mmHg (75-100); ART SAT O2 SAT 100 % (95-99); ART TCO2 ISTAT 25 mmol/L (21-32); TOSPEC ART
[2016-11-03 14:22] LABS: ART BE ISTAT 2 mmol/L (0-3); ART GLUC ISTAT 149 mg/dL (70-99); ART HCO3 ISTAT 25 mmol/L (21-28); ART HCT ISTAT 21 % (36-40); ART HGB ISTAT 7.1 g/dL (12-15); ART K ISTAT 4.2 mmol/L (3.5-5.0); ART NA ISTAT 140 mmol/L (135-145); ART PCO2 ISTAT 33 mmHg (35-45); ART PH ISTAT 7.49 (7.35-7.45); ART PO2 ISTAT 341 mmHg (75-100); ART SAT O2 SAT 100 % (95-99); ART TCO2 ISTAT 26 mmol/L (21-32); TOSPEC ART
[2016-11-03 14:22] LABS: FIO2 ISTAT 100; TOSPEC VEN; VEN BASE EXCESS ISTAT 0 mmol/L (0-3); VEN GLUC ISTAT 170 mg/dL (70-99); VEN HCO3 ISTAT 24 mmol/L (24-28); VEN HCT ISTAT 28 % (36-40); VEN HGB ISTAT 9.5 g/dL (12-15); VEN ION CA ISTAT 1.25 mmol/L (1.13-1.32); VEN K ISTAT 3.7 mmol/L (3.5-5.0); VEN NA ISTAT 139 mmol/L (135-145); VEN O2 ISTAT 38 mmHg (20-40); VEN PCO2 ISTAT 38 mmHg (41-51); VEN PH ISTAT 7.42 (7.32-7.42); VEN SO2 ISTAT 73 %; VEN TCO2 ISTAT 26 mmol/L (21-32)
[2016-11-03 14:22] LABS: ART BE ISTAT -1 mmol/L (0-3); ART GLUC ISTAT 113 mg/dL (70-99); ART HCO3 ISTAT 24 mmol/L (21-28); ART HCT ISTAT 17 % (36-40); ART HGB ISTAT 5.8 g/dL (12-15); ART ION CA ISTAT 1.64 mmol/L (1.13-1.32); ART K ISTAT 3.3 mmol/L (3.5-5.0); ART NA ISTAT 140 mmol/L (135-145); ART PCO2 ISTAT 36 mmHg (35-45); ART PH ISTAT 7.42 (7.35-7.45); ART PO2 ISTAT 442 mmHg (75-100); ART SAT O2 SAT 100 % (95-99); ART TCO2 ISTAT 25 mmol/L (21-32); TOSPEC ART
[2016-11-03 14:22] LABS: ART BE ISTAT 0 mmol/L (0-3); ART GLUC ISTAT 158 mg/dL (70-99); ART HCO3 ISTAT 23 mmol/L (21-28); ART HCT ISTAT 25 % (36-40); ART HGB ISTAT 8.5 g/dL (12-15); ART ION CA ISTAT 1.12 mmol/L (1.13-1.32); ART K ISTAT 3.2 mmol/L (3.5-5.0); ART NA ISTAT 141 mmol/L (135-145); ART PCO2 ISTAT 31 mmHg (35-45); ART PH ISTAT 7.49 (7.35-7.45); ART PO2 ISTAT 397 mmHg (75-100); ART SAT O2 SAT 100 % (95-99); ART TCO2 ISTAT 24 mmol/L (21-32); TOSPEC ART
--- NOTE | 2016-11-03 14:23 | EKG ---
[facility] [address] [place] [address] Test Date: 2016-11-03 Test Time: 14:23:32 Pat Name: ENOC DOTSON Department: Room: 107 1 Gender: F Refrigerating Technician: CJ : 1945 Requested By: ANNE MARIE NI Order Number: [id number] Reading MD: Lev Lorenzo Measurements Intervals [place] Rate: 87 P: 0 IN: 144 QRS: -1 QRSD: 98 T: 150 QT: 370 QTc: 451 Interpretive Statements SINUS RHYTHM LEFTWARD AXIS QRS(T) CONTOUR ABNORMALITY CONSISTENT WITH INFERIOR INFARCT PROBABLY OLD T ABNORMALITY IN HIGH LATERAL LEADS ST-T ELEVATION, CONSIDER ACUTE ANTERIOR INFARCT Electronically Signed On 11-07-2016 14:13:35 CDT by Lev Lorenzo
--- NOTE | 2016-11-03 14:23 | PDOC4 ---
Operative Note Operative Note Date November 03, 2016 Preoperative diagnosis Coronary artery disease NSTEMI Diabetes Hypertension Hyperlipidemia Chronic obstructive pulmonary disease Postoperative diagnosis Coronary artery disease NSTEMI Diabetes Hypertension Hyperlipidemia Chronic obstructive pulmonary disease Procedure Coronary artery bypass grafting 3 (left internal mammary artery to the left anterior descending artery, saphenous vein graft to the obtuse marginal, saphenous vein graft to distal right coronary artery) Left endoscopic greater saphenous vein harvesting Surgeon Eunice Lugo MD Groundman/Lineman Isis Ochoa, KELBY Thomas Anesthesiologist Dr Marrero Anesthesia General Blood loss Cellsaver IV fluids Cellsaver: 500 mls Crystalloid: 1000 mls Urine output 750 mls Specimens None Findings Good 2 mm LAD, OM and distal RCA targets Good quality conduits Normal LV function Complications None Additional Remarks Cardiopulmonary bypass time: 114 minutes X-clamp time 93 minutes Indications Patient is a 71 year old diabetic female, who presents with increasing SOB for several years, which has worsened over the past 3-4 months. She denies angina, palpitations, orthopnea. She had a positive stress test and today underwent coronary angiography which demonstrated an occluded proximal RCA which fills from L to R collaterals, a tight mid LAD stenosis and mid LCx with a large OM. LV function is preserved. A CABG was indicated. The risks, benefits and limitations of the procedure explained to the patient who agreed to proceed. Informed consent was obtained. Operation After appropriate identification, the patient was brought to the operating room and placed supine on the operating table. Anesthesia was induced and the airway was secured with an endotracheal tube. Monitoring lines were placed without difficulty. Antibiotics were delivered and the patient was preped in the usual standard surgical sterile fashion. A timeout was then performed. A median sternotomy was performed and the internal mammary artery was harvested, which was of good quality and size. Simultaneously the left greater saphenous vein was harvested endoscopically, which was also of good caliber and quality. The pericardium was incised. The patient was heparinized. Cardiopulmonary bypass was established through the ascending aorta and the right atrium. The patient was cooled to 33. Myocardial protection was achieved with antegrade blood cardioplegia. The cross-clamp was applied and diastolic arrest was achieved. Intermittent dosages of cardioplegia were given. Grafts: Saphenous vein graft to the distal right coronary artery artery, end to side anastomosis with 7-0 Prolene. 2 mm vessel. Saphenous vein graft to obtuse marginal coronary artery, end to side anastomosis with 7-0 Prolene. 2 mm vessel. Left internal mammary artery to left anterior descending, end to side anastomosis with 7-0 Prolene. 2 mm vessel Two proximals were performed using a 6-0 Prolene running suture. Radiopaque markers were placed at the proximal anastomoses. The cross-clamp was removed. The heart was allowed to rewarm and reperfuse. The grafts were de-aired. The patient recovered normal sinus rhythm and was from cardiopulmonary bypass without pharmacologic support. Heparin was reversed with protamine. Atrial and ventricular pacing wires were placed. An angled 32 [place] chest tube was placed in the left pleural space, a 32Fr angled in the posterior pericardium and a 32 straight in the anterior pericardium. Hemostasis was achieved and confirmed. The sternotomy was closed with #7 steel wires. The incision was closed with a layer of 0 Vicryl followed by 2-0 Vicryl and then 4- 0 Monocryl for the epidermis. Sterile dressings were applied. The total cardiopulmonary bypass time was 114 minutes and the cross-clamp time was 93 minutes. The instrument, sponge and needle counts were correct. The patient was then transferred to the ICU in critical condition. EUNICE LUGO MD November 03, 2016 14:23
[2016-11-03 14:28] LABS: BASE EXCESS COOX -4 mmol/L (-3-3); CARBON MONOXIDE 0.1 % (0.0-1.9); HCO3 COOX 21 mmol/L (21-28); METHEMOGLOBIN 0.6 % (0.0-1.9); OXYHEMOGLOBIN 98.2 %; PCO2 COOX 35 mmHg (35-46); PH COOX 7.39 (7.35-7.45); PO2 COOX 465 mmHg (65-108); SAT O2 COOX 99 % (92-99); TOTAL HEMOGLOBIN 8.6 g/dL
[2016-11-03 14:29] LABS: FIO2 COOX 100%
[2016-11-03 14:55] LABS: HEMOGLOBIN 7.9 g/dL (12.0-15.5); RED BLOOD COUNT 2.52 x10^6/uL (3.50-5.40); RED CELL DISTRIBUTION WIDTH 14.8 % (11.5-14.5); WHITE BLOOD COUNT 5.1 x10^3/uL (4.0-11.0)
[2016-11-03 15:04] LABS: INR 1.4 (0.8-1.1); PROTHROMBIN TIME PATIENT 16.5 SEC (11.7-14.0)
[2016-11-03 15:16] LABS: CALCIUM 9.9 mg/dL (8.5-10.1); CREATININE 1.2 mg/dL (0.6-1.0); GFR 44.4; MAGNESIUM 2.6 mg/dL (1.8-2.4); POTASSIUM 3.8 mmol/L (3.5-5.1)
[2016-11-03] MEDS: MORPHINE SULFATE 2 MG/ML DISP.SYRIN. IV PRN ×2 (15:38→21:09)
[2016-11-03] MEDS: MEPERIDINE PF 25 MG/ML VIAL. IV PRN ×2 (15:47→16:00)
[2016-11-03] MEDS: INSULIN REGULAR VIAL 150 UNIT in 0.9 % SODIUM CHLORIDE 150ML 150 ML IV PRN (15:51)
[2016-11-03] MEDS: POTASSIUM CHLORIDE 20MEQ 50 ML IV SCH ×2 (15:53→16:29)
[2016-11-03] MEDS: ALBUMIN HUMAN 5% 250 ML IV PRN ×2 (16:09→16:23)
--- NOTE | 2016-11-03 16:58 | RAD ---
Portable chest, 11/03/2016: History: Postop CABG Comparison is made to a study from 11/02/2016. There has been an interval median sternotomy. The patient is rotated to the right. A right jugular [place] catheter extends into the proximal aspect of the right pulmonary artery. An NG tube extends into the stomach. The tip of the ET tube lies well above the ray near the thoracic inlet. There appear to be 2 mediastinal drains and a left chest tube in place. The heart is enlarged. The pulmonary vascularity is normal. No pulmonary infiltrate is seen. There is no evidence of pneumothorax or pleural fluid. IMPRESSION: 1. Numerous tubes and catheters have been inserted as described above. 2. Mild cardiomegaly. 3. No significant postoperative cardiopulmonary abnormality is detected.
[2016-11-03 18:24] LABS: HEMOGLOBIN 7.1 g/dL (12.0-15.5); RED BLOOD COUNT 2.29 x10^6/uL (3.50-5.40); RED CELL DISTRIBUTION WIDTH 15.1 % (11.5-14.5); WHITE BLOOD COUNT 5.8 x10^3/uL (4.0-11.0)
[2016-11-03 18:27] LABS: HEMATOCRIT 20.9 % (36.0-47.0)
[2016-11-03] MEDS ORDERED: SODIUM BICARB ADULT 8.4% 50 MEQ/50 ML DISP.SYRIN. IV ONE (20:15)
[2016-11-03] MEDS ORDERED: FAMOTIDINE 20 MG/2 ML VIAL IVP SCH (21:00)
[2016-11-03] MEDS: ATORVASTATIN CALCIUM 20 MG TABLET PO SCH (21:08)
[2016-11-03] MEDS: oxyCODONE/APAP 5/325 1 TAB TABLET PO PRN (21:08)
[2016-11-03 21:40] LABS: HCO3 ABG 21 mmol/L (21-28); PCO2 ABG 40 mmHg (35-46); PH ABG 7.33 (7.35-7.45); PO2 ABG 168 mmHg (65-108); SAT O2 ABG 98 % (92-99)
[2016-11-03 21:41] LABS: FIO2 ABG 40
[2016-11-03] MEDS: SENNOSIDES/DOCUSATE 8.6/50MG TABLET. PO SCH (21:56)
[2016-11-04] VITALS (24 sets, daily range): BP systolic 89–168; BP diastolic 44–85
[2016-11-04 00:55] LABS: HEMATOCRIT 30.4 % (36.0-47.0); HEMOGLOBIN 10.4 g/dL (12.0-15.5); RED BLOOD COUNT 3.31 x10^6/uL (3.50-5.40); RED CELL DISTRIBUTION WIDTH 14.2 % (11.5-14.5)
--- NOTE | 2016-11-04 03:33 | ACF ---
Admission Forms Criteria INTENSIVE CARE UNIT ADMISSION Intensive Care Admission Guidelines ( Place 'X' for any and all applicable criteria): Admission to ICU may be indicated when need is demonstrated by ANY ONE of the following (1)(2)(3)(4)(5)(6)(7)(8)(9) : [ ]I. Vital sign abnormalities, including ANY ONE of the following: [ ]a) Systolic arterial pressure less than 90 mm Hg, or 20 mm Hg below the patient's usual pressure [ ]b) Diastolic arterial pressure greater than 120 mm Hg [ ]c) Mean arterial pressure less than 70 mm Hg [A] [ ]d) Pulse less than 40 or greater than 140 beats per minute (in adult) [ ]e) Respiratory rate greater than 35 or less than 8 breaths per minute [ ]II. Laboratory findings (new), including ANY ONE of the following (10): [ ]a) Saturation of arterial oxygen less than 88% or partial pressure of oxygen less than 60 mm Hg (8.0 kPa) despite oxygen supplementation [ ]b) Rising partial pressure of carbon dioxide with respiratory acidosis [ ]c) pH less than 7.2 or greater than 7.65 [ ]d) Serum glucose greater than 800 mg/dL (44.4 mmol/L) [ ]e) Serum sodium less than 110 mEq/L (mmol/L) or greater than 160 mEq/L (mmol/L) [ ]f) Serum potassium less than 2 mEq/L (mmol/L) or greater than 7 mEq /L (mmol/L) [ ]g) Serum calcium greater than 15 mg/dL (3.75 mmol/L) [ ]h) Serum phosphorus less than 1 mg/dL (0.32 mmol/L) [ ]i) Toxic drug level or poisoning causing or likely to cause neurologic or Hemodynamic instability [ ]j) Less severe laboratory abnormalities contributing to ANY ONE of the following: [ ]i) Seizure [ ]ii) Altered mental status [ ]iii) Muscle weakness [ ]iv) Arrhythmias [ ]v) Hemodynamic instability [ ]vi) Other significant clinical manifestations [ ]III. Electrocardiogram (or cardiac monitoring) findings, including ANY ONE of the following: [ ]a) Inherently unstable or life-threatening arrhythmia (eg, sustained ventricular tachycardia, ventricular fibrillation, asystole) [ ]b) Arrhythmia causing severe hypotension (eg, bradycardia, tachycardia) [ ]c) Complete heart block causing severe hypotension [ ]d) Other findings indicative of a need for intensive care (eg , SD) [ ]IV.Physical findings, including ANY ONE of the following: [ ]a) Threatened airway [ ]b) Sudden altered mental status [ ]c) Repeated or prolonged seizures [ ]d) Coma [ ]e) New-onset anuria (urine output <0.1 mL/kg/hr over 4 h) [ ]f) Cyanosis (new) [ ]g) Cardiac tamponade [ ]h) Status post respiratory or cardiac arrest [ ]i) Severe love (eg, partial thickness love over more than 10% of body surface, third-degree love) [ ]j) Findings consistent with abdominal emergency (eg, peritoneal signs) [ ]V.Imaging findings, such as dissecting aneurysm or ruptured viscus [ ].Specific intervention or monitoring needed, as indicated by ANY ONE of the following: [ ]a) New need for assisted ventilation, invasive or noninvasive(11) [ ]b) New need for intubation (eg, to protect airway) [ ]c) New tracheostomy (less than 48 hours old) [ ]d) Hourly vital signs or neurologic checks [ ]e) Pulmonary artery line monitoring needed [ ]f) Continuous arterial line monitoring needed [ ]g) Continuous IV vasoactive drugs [ ]h) Continuous IV antiarrhythmics [ ]i) Large volume IV fluid resuscitation (eg, greater than 6 L per day ) [ ]j) Large or rapid transfusion needs (eg, more than 6 units within 24 hours) [ ]k) High-risk IV treatment, such as bolus IV medicatns or mannitol infusion [ ]l) Acute cardiac pacing [ ]m) Intra-aortic balloon pump [ ]n) Ventricular assist device [ ]o) Cardioversion [ ]p) Pericardiocentesis [ ]q) Hemodialysis in unstable patient [ ]r) Continuous renal replacement therapy (eg, continuous veno-venous hemofiltration) [ ]s) Peritoneal dialysis initiation [ ]t) Emergency bronchoscopic therapy (eg, for hemoptysis) [ ]u) Emergency endoscopic therapy for bleeding [ ]v) Balloon tamponade for variceal bleeding [ ]w) Intracranial pressure monitoring or tissue oxygen monitoring [ ]x) Ventriculostomy monitoring [ ]y) Treatment of ongoing seizures [ ]z) Induced hypothermia or coma [ ]aa) Ongoing frequent testing and treatment for acute conditions, including ANY ONE of the following: [ ]i) Correction of severe metabolic acidosis/ alkalosis [ ]ii). Severe fluid overload [ ]iii) Cerebral edema [ ]iv) Monitoring or suctioning for respiratory insufficiency or acidosis [ ]v) Monitoring for active bleeding [ ]bb) Rapid desensitization for high-risk hypersensitivity reaction to required medication (eg, penicillin)(12) [ ]cc) Other need for treatment or monitoring not available outside the ICU [ ]VII.Cardiology diagnoses or procedures, including ANY ONE of the following (13)(14)(15)(16)(17): [ ]a) Chest pain with ANY ONE of the following: [ ]i) Hemodynamic instability [ ]ii) Suspicion of diagnoses needing ICU care (eg, aortic dissection) [ ]iii) New unstable or symptomatic arrhythmia or ECG finding (eg, ventricular tachycardia, ventricular fibrillation, advanced heart block) [ ]iv) Syncope or near-syncope [ ]v) SBP less than 100 mm Hg [ ]vi) Pulmonary edema thought to be due to ischemia [ ]vii) New or worsening mitral regurgitation murmur, S3 , or rales [ ]b) Acute SD with complications as indicated by ANY ONE of the following: [ ]i) Persistent chest pain [ ]ii) Hemodynamic instability [ ]iii) New unstable or symptomatic arrhythmia or ECG finding (eg, ventricular tachycardia, ventricular fibrillation, advanced heart block) [ ]iv) Syncope or near-syncope [ ]v) Pulmonary edema thought to be due to ischemia [ ]vi) New or worsening mitral regurgitation murmur, S3 , or rales [ ]vii) New-onset bundle branch block [ ]viii) Hemorrhagic complication (eg, intracranial or access site bleed following thrombolysis) [ ]c) Cardiac arrhythmia or conduction defect with Hemodynamic instability [ ]d) Complication of cardiac ablation, including ANY ONE of the following(18): [ ]i) Pericardial tamponade [ ]ii) Hemodynamic instability [ ]iii) Thromboembolic stroke [ ]iv) Aortic valve injury [ ]v) Vascular injuries [ ]vi) Esophageal perforation [ ]vii) Severe arrhythmia [ ]viii) Air embolism [ ]ix) Other severe complication [ ]e) Cardiogenic shock [ ]f) Hypertensive emergency, with need for ANY ONE of the following(19): [ ]i) IV antihypertensive therapy [ ]ii) Invasive hemodynamic monitoring (eg, arterial line) [ ]g) Pericardial tamponade [ ]h) Severe heart failure, with ANY ONE of the following(15): [ ]i) Respiratory failure [ ]ii) Cardiogenic shock [ ]iii) Severe arrhythmias [ ]iv) Evidence of cardiac ischemia [ ]i Myocarditis, with ANY ONE of the following [ ]i) Hemodynamic instability [ ]ii) Respiratory failure [ ]iii) Severe arrhythmias [ ]iv) Need for cardiac assist device (eg, left ventricular assist device or extracorporeal membrane oxygenator) [ ]j) Status post cardiac arrest(20) [X]VIII. Cardiovascular Surgery diagnoses or procedures, including ANY ONE of the following.(21)(22): [ ]a) Acute aortic dissection [ ]b) Aortic surgery for ANY ONE of the following: [ ]i) Thoracic aneurysm [ ]ii) Abdominal aneurysm with ANY ONE of the following(23): [ ]1) Emergency repair [ ]2) Severe cardiopulmonary disease [ ]3) Dialysis-dependent renal failure [ ]4) Need for IV blood pressure control [ ]5) Need for ongoing ventilatory support [ ]6) Perioperative complications, including ANY ONE of the following: [ ]A. Sustained Hemodynamic instability [ ]B. Cardiac ischemia or arrhythmia [ ]C. Hypothermia (less than 35 degrees C (95 degrees F)) [ ]D. Blood transfusion greater than 3 L [ ]iii) Aortic coarctation operative excision or repair [ ]iv) Aortofemoral or aortoiliac bypass with ANY ONE of the following: [ ]1) Continued intubation [ ]2) Hemodynamic instability [ ]3) Need for IV blood pressure control [ ]4) Severe cardiopulmonary disease [X ]c) Cardiac surgery [ ]d) Carotid endarterectomy or stent placement with ANY ONE of the following: [ ]i) Blood pressure <100/60 mm Hg or >160/90 mm Hg despite 4 h of postanesthetic management [ ]ii) New or progressive neurologic defect [ ]iii) Chest pain [ ]iv) Continued intubation [ ]v) Heart failure [ ]vi) Airway compromise by hematoma or vocal cord paralysis [ ]vi) Need for IV blood pressure control [ ]e) Heart transplant [ ]f) Infrainguinal peripheral vascular surgery with ANY ONE of the following: [ ]i) Hemodynamic instability [ ]ii) Acute complications such as persistent chest pain or respiratory distress [ ]iii) Requirement for IV antiarrhythmic or vasoactive agent [ ]iv) Requirement for pulmonary artery catheter [ ]v) Severe hypertension despite 6 hours of recovery room management [ ]g) Complications of any surgery requiring ICU intervention as indicated by ANY ONE of the following(24): [ ]i) Hemodynamic instability [ ]ii) Myocardial infarction with complications (eg, severe arrhythmia, hypotension) [ ]iii) Excessive bleeding or severe coagulopathy [ ]iv) Respiratory failure [ ]v) Renal failure [ ]vi) Airway instability or obstruction [ ]vii) Neurologic deterioration [ ]viii) Infection with likelihood of sepsis syndrome or significant fluid shifts [ ]IX.Endocrinology diagnoses or procedures, including ANY ONE of the following(25)(26): [ ]a) Adrenal crisis with Hemodynamic instability(27) [ ]b) Pheochromocytoma with ANY ONE of the following(28): [ ]i) Hypertensive crisis [ ]ii) Postoperative Hemodynamic instability [ ]iii) Need for IV vasoactive therapy [ ]iv) Need for invasive arterial or central venous pressure monitoring [ ]v) Organ ischemia [ ]c) Diabetic hyperosmolar state with obtundation or coma [ ]d) Diabetic ketoacidosis with ANY ONE of the following: [ ]i) Serum pH less than 7.10 or bicarbonate level less than 10 mEq/L (mmol/L) [ ]ii) Rapidly changing electrolytes [ ]iii) Hypotension [ ]iv) Requirement for large-volume fluid resuscitation [ ]v) Respiratory insufficiency [ ]vi) Life-threatening cardiac dysrhythmias [ ]vii) Obtundation [ ]viii) Severe precipitating condition such as sepsis, stroke, or acute SD [ ]e) Severe hypoglycemia requiring continuous glucose infusion with frequent adjustment or glucagon infusion [ ]f) Hyperthyroidism associated with thyroid storm (also known as thyrotoxic crisis)(29) [ ]g) Myxedema with life-threatening neurologic, cardiovascular, electrolyte, or renal dysfunction(29) [ ]h) Diabetes insipidus that cannot be controlled with routine medication (30) [ ]X. Gastroenterology diagnoses or procedures, including ANY ONE of the following: [ ]a) Esophageal perforation(31) [ ]b) Severe caustic esophageal injury(31) [ ]c) Liver disease complications with ANY ONE of the following(32): [ ]i) Severe hepatic encephalopathy (eg, stage 3 (somnolent) or higher) [ ]ii) Type 1 hepatorenal syndrome [ ]iii) Other cirrhosis-associated causes of acute renal failure ( eg, severe hypovolemia, acute tubular necrosis, abdominal compartment syndrome) [ ]iv) Hemodynamic instability [ ]v) Respiratory insufficiency due to severe ascites [ ]vi) Sepsis due to spontaneous bacterial peritonitis [ ]d) Fulminant hepatic failure when aggressive intervention or transplant is anticipated (32) [ ]e) Gastrointestinal hemorrhage (upper or lower) with ANY ONE of the following(33)(34): [ ]i) Active ongoing bleeding [ ]ii) Transfusion requirement greater than 2 units of packed red cells [ ]iii) Bleeding ulcer or nonbleeding visible vessel seen on endoscopy [ ]iv) Bleeding ulcer, visible blood vessel, bleeding (or recently bleeding) esophageal varices seen on endoscopy [ ]v) Hypotension [ ]vi) Syncope [ ]vii) Coagulopathy [ ]viii) Hepatic cirrhosis [ ]ix) Abnormal mental status [ ]x) Unstable comorbid condition or end organ dysfunction [ ]xi) Ischemia due to poor perfusion [ ]xii) Need for hemodynamic monitoring (eg, for patients with heart failure or valvular disease) [ ]f) Severe pancreatitis indicated by ANY ONE of the following (35)(36): [ ]i) Requirement for aggressive fluid resuscitation [ ]ii) Life-threatening electrolyte abnormality [ ]iii) SBP less than 90 mm Hg [ ]iv) Persistent tachycardia greater than 120 beats per minute [ ]v) Patients at high risk of rapid deterioration, including ANY ONE of the following: [ ]1) Calculated [place] II score greater than 8 [ ]2) Age older than 55 years [ ]3) BMI greater than 30 [ ]4) Greater than 30% pancreatic necrosis on CT scan [ ]5) Admission hematocrit greater than 47% (0.47) [ ]vi) Organ failure as indicated by ANY ONE of the following: [ ]1) Serum creatinine greater than 1.9 mg/dL (168 micromoles/L) [ ]2) Requirement for mechanical ventilation [ ]3) Urine output less than 50 mL/hour [ ]4) Arterial partial pressure of oxygen less than 60 mm Hg (8.0 kPa) despite supplemental oxygen [ ]5) PiO2/FiO2 ratio less than 300 [ ]vii) Expanding pseudocyst [ ]viii) Infected pancreas [ ]ix) Pleural effusion [ ]x) Encephalopathy [ ]xi) Severe comorbidities [ ]XI. General Surgery diagnoses or procedures, including ANY ONE of the following (9)(24)(37): [ ]a) Acute abdominal catastrophe (eg, ischemic bowel, perforated viscus, abdominal compartment syndrome) [ ]b) Complications of any surgery requiring ICU intervention as indicated by ANY ONE of the following: [ ]i) Hemodynamic instability [ ]ii) SD with complications (eg, severe arrhythmia, hypotension) [ ]iii) Excessive bleeding or severe coagulopathy [ ]iv) Respiratory failure [ ]v) Renal failure [ ]vi) Airway instability or obstruction [ ]vii) Neurologic deterioration [ ]viii) Infection with likelihood of sepsis syndrome or significant fluid shifts [ ]c) Multiple trauma with complicating features as indicated by ANY ONE of the following(38): [ ]i) Impending acute respiratory failure due to lung contusion, unstable chest wall, aspiration, or hemorrhage [ ]ii) Facial or neck injury threatening airway patency [ ]iii) Cardiac contusion [ ]iv) Pericardial effusion [ ]v) Bronchial tear [ ]vi) Hemodynamic instability [ ]vii) Rhabdomyolisis requiring large volume IV fluid resuscitation [ ]viii)Other significant complicating feature [ ]d) Organ transplant(39)(40) [ ]e) Esophagectomy(31) [ ]f) Whipple procedure [ ]g) Preoperative or postoperative patients requiring ICU intervention, such as hemodynamic optimization, pulmonary artery monitoring, mechanical ventilation, or extensive nursing care [ ]h) Obesity surgery patients with ANY ONE of the following(41): [ ]i) ICU management needs for comorbid conditions, such as sleep apnea or airway management needs [ ]ii) Failed postoperative extubation [ ]iii) Intraoperative complications [ ]XII. Nephrology diagnoses or procedures, including acute, or acute on chronic renal insufficiency with ANY ONE of the following(44)(45): [ ]a) Life-threatening electrolyte or acid-base disorder [ ]b) Acute pulmonary edema [ ]c) Hypotension or significant volume depletion [ ]d) Hypertensive emergency [ ]e) Underlying critical illness contributing to renal failure (eg, septic shock, hepatorenal syndrome) [ ]f) Need for continuous renal replacement therapy [ ]XIII. Neurology diagnoses or procedures, including ANY ONE of the following (46)(47) [B] : [ ]a) Intracranial hypertension requiring ANY ONE of the following(49 ): [ ]i) Induced barbiturate coma [ ]ii) Pharmacologic paralysis or deep sedation and mechanical ventilation [ ]iii) Intracranial pressure or cerebral perfusion pressure monitoring [ ]iv) IV mannitol or hypertonic saline [ ]v) Frequent serum osmolality measurements [ ]b) Seizures with ANY ONE of the following(50): [ ]i) Status epilepticus [ ]ii) Airway compromise requiring or likely to require mechanical ventilation [ ]iii) Severe electrolyte abnormalities causing seizures [ ]c) Progressive acute neurologic dysfunction requiring or likely to require ANY ONE of the following: [ ]i) Mechanical ventilation [ ]ii) Intracranial pressure or cerebral perfusion pressure monitoring [ ]d) Meningitis with obtundation or respiratory insufficiency [C])(51 ) [ ]e) Stroke with ANY ONE of the following(52)(53): [ ]i) Need for observation after thrombolysis [ ]ii) Altered mental status [ ]iii) Need for mechanical ventilation [ ]iv) Elevated intracranial pressure [ ]v) Hypertensive emergency [ ]vi) High risk of progressive infarction or deterioration based on CT scan or MRI [ ]vii) Hemorrhage [ ]f) Acute coma [ ]g) Acute spontaneous intracranial hemorrhage(53)(54) [ ]h) Drug ingestion with ANY ONE of the following(56)(57): [ ]i) Hemodynamic instability [ ]ii) Respiratory depression (partial pressure of carbon dioxide >45 mm Hg (6.0 kPa), new) [ ]iii) Patient requires or is likely to require mechanical ventilation. [ ]iv) Arrhythmias [ ]v) Seizures [ ]vi) Altered mental status ([place] coma scale score less than 12, new) [ ]vii) Significant risk for acute deterioration (eg, toxic level of hypotension or arrhythmia-producing drug) [ ]viii) Drug-induced hypothermia or hyperthermia [ ]ix) Increasing metabolic acidosis [ ]x) Severe hypoglycemia requiring glucose infusion with frequent adjustment or glucagon administration [ ]xi) Ongoing antidote administration (eg, continuous naloxone infusion, organophosphate toxicity treatment) [ ]xii) Emergency intervention need (eg, dialysis, hemoperfusion, restraints) [ ]i) Brain with preparation for organ donation [ ]j) Traumatic brain injury with ANY ONE of the following(55): [ ]i) Altered mental status (eg, new onset [place] coma scale score less than 10) [ ]ii) Cerebral edema [ ]iii) Cerebral hemorrhage [ ]iv) Increased intracranial pressure [ ]XIV. Neurosurgery diagnoses or procedures, including ANY ONE of the following(49)(58)(59): [ ]a) Emergency craniotomy for tumor, hematoma, or trauma [ ]b) Elective craniotomy for posterior fossa tumor [ ]c) Elective craniotomy (supratentorial) for tumor with ANY ONE of the following: [ ]i) Postoperative neurologic deficit or impaired consciousness 6 hours after completion of procedure [ ]ii) SBP less than 110 mm Hg or greater than 180 mm Hg despite therapy [ ]iii) Extensive operative blood loss [ ]iv) High anesthesia risk (eg, [place] Society of anesthesiologists score greater than 3 [ ]d) Craniotomy for aneurysm with ANY ONE of the following: [ ]i) Postoperative neurologic deficit or impaired consciousness 6 hours after completion of procedure [ ]ii) Preoperative Bernal-[place] grade 3 or higher [ ]iii) SBP less than 110 mm Hg or greater than 180 mm Hg despite therapy [ ]iv) Intracranial pressure monitoring [ ]e) Acute spinal cord injury [ ]f) Subarachnoid hemorrhage [ ]g) Traumatic brain injury with ANY ONE of the following: [ ]i) Acute mental status change ([place] coma scale score less than 10) [ ]ii) CT scan showing cerebral edema or hemorrhage [ ]iii) Intracranial pressure monitoring [ ]h) Complications of any surgery requiring ICU intervention as indicated by ANY ONE of the following(60): [ ]i) Hemodynamic instability [ ]ii) SD with complications (eg, severe arrhythmia, hypotension) [ ]iii) Excessive bleeding or severe coagulopathy [ ]iv) Respiratory failure [ ] v) Renal failure [ ]vi) Airway instability or obstruction [ ]vii) Neurologic deterioration [ ]viii) Infection with likelihood of sepsis syndrome or significant fluid shifts [ ]i) Preoperative or postoperative patients requiring ICU intervention, such as hemodynamic optimization, pulmonary artery monitoring, mechanical ventilation, or extensive nursing care [ ]XV.Obstetrics and Gynecology diagnoses or procedures, including ANY ONE of the ffg. (61)(62)(63): [ ]a) Severe peripartum condition as indicated by ANY ONE of the following: [ ]i) Eclampsia [ ]ii) Hypertensive emergency [ ]iii) HELLP syndrome (hemolysis, elevated liver enzymes, and low platelet count) [ ]iv) Pulmonary edema [ ]v) Respiratory failure [ ]vi) Pulmonary embolism [ ]vii) Anaphylactoid syndrome of (amniotic fluid embolus) [ ]viii) Ovarian hyperstimulation syndrome [D] [ ]ix) Acute fatty liver of (hepatic failure) [ ]x) Complications such as placental abruption or severe hemorrhage [ ]xi) Sepsis (eg, puerperal sepsis, chorioamnionitis, septic ) [ ]xii) cardiomyopathy with severe congestive heart failure (eg, respiratory failure, cardiogenic shock) [ ]b) Ruptured ectopic [ ]c) Complications of any surgery requiring ICU intervention as indicated by ANY ONE of the following: [ ]i) Hemodynamic instability [ ]ii) SD with complications (eg, severe arrhythmia, hypotension) [ ]iii) Excessive bleeding or severe coagulopathy [ ]iv) Respiratory failure [ ]v) Renal failure [ ]vi) Airway instability or obstruction [ ]vii) Neurologic deterioration [ ]viii) Infection with likelihood of sepsis syndrome or significant fluid shifts [ ]d) Preoperative or postoperative patients requiring ICU intervention , such as hemodynamic optimization, pulmonary artery monitoring, mechanical ventilation, or extensive nursing care [ ]XVI.Ophthalmology diagnoses or procedures, including ANY ONE of the following (64): [ ]a) Complications of any surgery requiring ICU intervention, such as ANY ONE of the following: [ ]i) Hemodynamic instability [ ]ii) SD with complications (eg, severe arrhythmia, hypotension) [ ]iii) Excessive bleeding or severe coagulopathy [ ]iv) Respiratory failure [ ]v) Renal failure [ ]vi) Airway instability or obstruction [ ]vii) Neurologic deterioration [ ]viii) Infection with likelihood of sepsis syndrome or significant fluid shifts [ ]b) Preoperative or postoperative patients requiring ICU intervention , such as hemodynamic optimization, pulmonary artery monitoring, mechanical ventilation, or extensive nursing care [ ]XVII.Orthopedics diagnoses or procedures, including ANY ONE of the following [phone]): [ ]a) Complications of any surgery requiring ICU intervention as indicated by ANY ONE of the following: [ ]i) Hemodynamic instability [ ]ii) SD with complications (eg, severe arrhythmia, hypotension) [ ]iii) Excessive bleeding or severe coagulopathy [ ]iv) Respiratory failure [ ]v) Renal failure [ ]vi) Airway instability or obstruction [ ] vii) Neurologic deterioration [ ]viii) Infection with likelihood of sepsis syndrome or significant fluid shifts [ ]b) Multiple trauma with complicating features as indicated by ANY ONE of the following(38): [ ]i) Impending acute respiratory failure due to lung contusion, unstable chest wall, pneumothorax, aspiration, or hemorrhage [ ]ii) Facial or neck injury threatening airway patency [ ]iii) Cardiac contusion [ ]iv) Rhabdomyolysis requiring large volume IV fluid resuscitation [ ]v) Pericardial effusion [ ]vi) Bronchial tear [ ]vii) Hemodynamic instability [ ]viii) Other significant complicating feature [ ]c) Threatened compartment syndrome [ ]d) Severe love with ANY ONE of the following(68)(69)(70): [ ]i) Hypotension or requirement for aggressive fluid resuscitation [ ]ii) Respiratory insufficiency with requirement for high- flow oxygen or mechanical ventilation [ ]iii) Carbon monoxide poisoning [ ]iv) Life-threatening cardiac, renal, pulmonary, or neurologic dysfunction [ ]v) High-voltage (eg, 1000 volts or more) electrical burn [ ]vi) Requirement for frequent or intensive debridement and dressing changes; examples include: [ ]1) Partial thickness love greater than 10% of body surface [ ]2) Love on face, hands, feet, genitalia, perineum , or major joints [ ]3) Third-degree love [ ]4) Any burn greater than 15% of body surface area [ ]vii) Inhalation lung injury [ ]viii) Concomitant trauma or other medical condition requiring ICU care [ ]e) Preoperative or postoperative patients requiring ICU intervention , such as hemodynamic optimization, pulmonary artery monitoring, mechanical ventilation, or extensive nursing care [ ]XVIII.Otolaryngology diagnoses or procedures, including ANY ONE of the following (71)(72): [ ]a) Complications of any surgery requiring ICU intervention as indicated by ANY ONE of the following: [ ]i) Hemodynamic instability [ ]ii) SD with complications (eg, severe arrhythmia, hypotension) [ ]iii) Excessive bleeding or severe coagulopathy [ ]iv) Respiratory failure [ ]v) Renal failure [ ]vi) Airway instability or obstruction [ ]vii) Neurologic deterioration [ ]viii) Infection with likelihood of sepsis syndrome or significant fluid shifts [ ]b) Airway or hemodynamic compromise that persists after 3 hours of observation in postanesthesia care unit following nasal, palate (eg, uvulopalatopharyngoplasty or palatoplasty), or tongue surgery for sleep apnea [ ]c) Preoperative or postoperative patient requiring ICU intervention, such as hemodynamic optimization, pulmonary artery monitoring, mechanical ventilation, or extensive nursing care [ ]d) Symptomatic upper airway compromise (eg, laryngeal edema, mass) [ ]e) Other airway-compromising procedure (eg, posterior nasal packing) [ ]XIX.Thoracic Surgery and Pulmonary Disease Diagnosis or procedures, including ANY ONE of the following(6): [ ]a) Asthma with ANY ONE of the following(73)(74): [ ]i) Impending or actual respiratory arrest [ ]ii) Need for mechanical ventilation [ ]iii) Peak expiratory flow rate less than 30% of predicted or personal best [ ]iv) Peak expiratory flow rate or FEV1 less than 40% predicted after 1 hour of initial treatment [ ]v) Acidosis [ ]vi) Persistent or worsening hypoxia after initial treatment [ ]vii) Hypercapnia (eg, partial pressure of carbon dioxide greater than 43 mm Hg (5.7 kPa)) [ ]viii) Severe drowsiness, confusion, or coma [ ]ix) Requiring continuous inhaled bronchodilator [ ]b) COPD with ANY ONE of the following(75): [ ]i) Need for assisted ventilation [ ]ii) Hemodynamic instability [ ]iii) Severe dyspnea unresponsive to initial treatment [ ]iv) Change in level of consciousness [ ]v) Persistent findings despite oxygen and outpatient management, including ANY ONE of the following: [ ]1) Partial pressure of oxygen less than 40 mm Hg ( 5.3 kPa) [ ]2) Partial pressure of carbon dioxide greater than 60 mm Hg (8.0 kPa) [ ]3) pH less than 7.25 [ ]4) Worsening hypoxemia or acidosis [ ]c) Cor pulmonale with ANY ONE of the following(75)(76)(77): [ ]i) Hemodynamic instability [ ]ii) Need for IV inotropic or vasoactive agent [ ]iii) Need for invasive hemodynamic monitoring (eg, central venous, pulmonary artery, or arterial catheter) [ ]iv) Hypoxemia with partial pressure of oxygen less than 40 mm Hg (5.3 kPa) [ ]v) Worsening hypoxemia or acidosis despite oxygen therapy [ ]vi) Need for assisted ventilation [ ]vii) Need for right ventricular assist device [ ]viii) Unstable atrial tachyarrhythmia [ ]ix) Need for inhaled nitric oxide [ ]d) Aspiration pneumonia with ANY ONE of the following(78): [ ]i) Acute respiratory distress syndrome (PaO2/FiO2 ratio of 300 or less) [ ]ii) Impending or actual respiratory arrest [ ]iii) Need for invasive or noninvasive mechanical ventilation [ ]e) Pneumocystis jiroveci pneumonia with ANY ONE of the following(79): [ ]i) Impending or actual respiratory arrest [ ]ii) Hypoxia (eg, PO260 mmGh (8.0 kPa) or less despite oxygen therapy) [ ]iii) Need for invasive or noninvasive mechanical ventilation [ ]f) Pneumonia with ANY ONE of the following(80)(81)(82): [ ]i) Need for invasive or noninvasive assisted ventilation [ ]ii) Hemodynamic instability [ ]iii) Severity factors as indicated by 3 or MORE of the following: [ ]1) Respiratory rate 30 breaths per minute or greater [ ]2) PaO2/FiO2 ratio of 250 or less [ ]3) Multilobed infiltrates [ ]4) Altered mental status [ ]5) BUN 20 mg/dL (7.1 mmol/L) or greater [ ]6) WBC count less than 4000/mm3 (4 x109/L) [ ]7) Platelet count <100,000/mm3 (100 x109/L) [ ]8) Temperature less than 36 degrees C (96.8 degrees F ) [ ]9) Hypotension requiring aggressive fluid resuscitation [ ]g) Pulmonary hypertension requiring initiation of parenteral pulmonary vasodilator or trial of inhaled nitric oxide (eg, need for right heart catheterization)(76) [ ]h) Impending respiratory failure as indicated by ANY ONE of the following: [ ]i) Respiratory rate greater than 30 or partial pressure of oxygen less than 60 mm Hg (8.0 kPa) on 50% oxygen or more [ ]ii) Partial pressure of carbon dioxide greater than 45 mm Hg (6.0 kPa) with pH less than 7.35 [ ]i) Respiratory failure with ANY ONE of the following (47): [ ]i) Need for invasive or noninvasive mechanical ventilation [ ]ii) High likelihood of requiring mechanical ventilation within 24 hours [ ]iii) Observation in the first several hours immediately after extubation from mechanical ventilation [ ]iv) Need for close observation and aggressive therapy, such as suctioning, chest physiotherapy, or inhalation treatments at intervals less than 1 hour [ ]v) Pharmacologic ventilatory paralysis [ ]j) Venous thromboembolism with need for systemic or catheter- directed thrombolysis (eg, for limb-threatening thrombosis, phlegmasia cerulea dolens) (83) [ ]k) Pulmonary embolus with ANY ONE of the following(83): [ ]i) Hypotension [ ]ii) Severe hypoxia [ ]iii) Dangerous arrhythmia [ ]iv) Bleeding [ ]v) Need for systemic or catheter-directed thrombolysis [ ]l) Lobectomy or other major thoracic surgery [ ]m) Lung transplant [ ]n) Symptomatic upper airway obstruction (eg, laryngeal edema, mass) [ ]o) Massive hemoptysis [ ]p) Infection or thrombosis of an intravenous device with ANY ONE of the following(6)(84): [ ]i) Hemodynamic instability [ ]ii) Requirement for frequent hemodynamic measurements [ ]iii) Shock [ ]iv) End organ dysfunction [ ] v) Acute renal failure due to missed dialysis [ ]vi) Unstable acute complication (eg, pericardial tamponade , tension pneumothorax) [ ]q) Traumatic rib fracture or fractures with ANY ONE of the following(85): [ ]i) Injury severity score of 19 or greater [ ]ii) Respiratory insufficiency [ ]iii) Flail chest [ ]iv) Sternum fracture [ ]v) Vascular injury (eg, heart or great vessels) [ ]r) Pleural effusion with ANY ONE of the following(86): [ ]i) Respiratory insufficiency [ ]ii) Hemothorax with active ongoing bleeding [ ]iii) Hemodynamic instability [ ]iv) Unstable comorbid condition (eg, sepsis or heart failure [ ]XX. Urology diagnoses or procedures, including ANY ONE of the following ( 87)(88): [ ]a) Renal transplant [ ]b) Complications of any surgery requiring ICU intervention as indicated by ANY ONE of the following: [ ]i) Hemodynamic instability [ ]ii) SD with complications (eg, severe arrhythmia, hypotension) [ ]iii) Excessive bleeding or severe coagulopathy [ ]iv) Respiratory failure [ ]v) Renal failure [ ]vi) Airway instability or obstruction [ ]vii) Neurologic deterioration [ ]viii) Infection with likelihood of sepsis syndrome or significant fluid shifts [ ]c) Preoperative or postoperative patients requiring ICU intervention , such as hemodynamic optimization, pulmonary artery monitoring, mechanical ventilation , or extensive nursing care [ ]XXI.Infectious Disease diagnoses or procedures, with ANY ONE of the following (6)(43): [ ]a) Hemodynamic instability [ ]b) Shock [ ]c) Requirement for frequent hemodynamic measurements (eg, arterial catheter, pulmonary artery catheter) [ ]d) Sepsis or suspected sepsis with end organ dysfunction (eg, acute kidney injury, acute respiratory distress syndrome) [ ]e) Necrotizing soft tissue infection [ ] XXII.Hematology - Oncology diagnoses or procedures, including chemotherapy administration with ANY ONE of the following(42): [ ]a) Hemodynamic instability [ ]b) Tumor lysis syndrome with ANY ONE of the following : [ ]1) Acute kidney injury [ ]2) Severe electrolyte abnormality [ ]3) Cardiac dysrhythmia [ ]XXIII. Systemic conditions, including ANY ONE of the following: [ ]a) Severe electrolyte or metabolic disturbance causing or likely to cause ANY ONE of the following(10)(89)(90): [ ]i) Life-threatening cardiac dysrhythmia [ ]ii) Respiratory insufficiency [ ]iii) Altered mental status [ ]iv) Seizures [ ]v) Hemodynamic instability [ ]vi) Muscular weakness [ ]b) Environmental injuries such as hypothermia, hyperthermia, electrical injuries, or near drowning(70)(91)(92) The original [facility] content created by [employer] has been revised. The portions of the content which have been revised are identified through the use of italic text or in bold, and [facility] has neither reviewed nor approved the modified material. All other unmodified content is copyright [facility]. Please see references footnoted in the original [facility] edition 2016 Admission Criteria Met?: Yes OKSANA RODRIGUES November 04, 2016 03:33
--- NOTE | 2016-11-04 03:39 | EKG ---
[facility] [address] [place] [address] Test Date: 2016-11-04 Test Time: 03:37:55 Pat Name: ENOC DOTSON Department: Room: 107 1 Gender: F Board Catcher: ANJALI : 1945 Requested By: ANNE MARIE NI Order Number: [id number] Reading MD: Measurements Intervals [place] Rate: 84 P: 43 ME: 186 QRS: 15 QRSD: 84 T: 90 QT: 362 QTc: 431 Interpretive Statements SINUS RHYTHM QRS(T) CONTOUR ABNORMALITY CONSIDER ANTEROSEPTAL MYOCARDIAL DAMAGE CONSISTENT WITH INFERIOR INFARCT PROBABLY OLD T ABNORMALITY IN HIGH LATERAL LEADS ABNORMAL ECG RI6.01 No previous ECG available for comparison
[2016-11-04] MEDS: oxyCODONE/APAP 5/325 1 TAB TABLET PO PRN ×4 (03:46→17:46)
[2016-11-04] MEDS: CLEVIDIPINE BUTYRATE 100 ML IV PRN (03:55)
[2016-11-04] MEDS ORDERED: FUROSEMIDE 20 MG/2 ML VIAL. IVP ONE (05:00)
[2016-11-04] MEDS: IV RINGERS,LACTATED 1000ML 1,000 ML IV SCH (05:24)
[2016-11-04 05:34] LABS: HEMATOCRIT 31.3 % (36.0-47.0); HEMOGLOBIN 10.7 g/dL (12.0-15.5); RED BLOOD COUNT 3.37 x10^6/uL (3.50-5.40); RED CELL DISTRIBUTION WIDTH 14.2 % (11.5-14.5); WHITE BLOOD COUNT 7.8 x10^3/uL (4.0-11.0)
[2016-11-04 05:46] LABS: CREATININE 1.3 mg/dL (0.6-1.0); GFR 40.5; MAGNESIUM 2.1 mg/dL (1.8-2.4); POTASSIUM 4.6 mmol/L (3.5-5.1)
[2016-11-04 05:50] LABS: INR 1.3 (0.8-1.1); PROTHROMBIN TIME PATIENT 15.5 SEC (11.7-14.0)
[2016-11-04 05:55] LABS: CHOLESTEROL/HDL RATIO 4.7
--- NOTE | 2016-11-04 07:20 | RAD ---
Portable chest, 11/04/2016: History: Postop chest pain Comparison is made to yesterday's study. The ET tube, NG tube and Parchman-Chiquis catheter have been removed. A right jugular vascular sheath remains in place. There appear to be 2 mediastinal drains and a left chest tube in place. The heart remains mildly enlarged. The pulmonary vascularity is normal. There is minimal linear atelectasis in the left base. The right lung is clear. There is no evidence of pneumothorax or pleural fluid. IMPRESSION: 1. Minimal left basilar linear atelectasis. 2. The postoperative chest is otherwise unremarkable.
[2016-11-04] MEDS: MORPHINE SULFATE 2 MG/ML DISP.SYRIN. IV PRN (08:09)
[2016-11-04] MEDS: ASPIRIN ENTERIC COATED 325 MG TABLET.DR. PO SCH (09:31)
[2016-11-04] MEDS: METOPROLOL TART IMMED RELEASE 25 MG TABLET. PO SCH ×2 (09:31→20:45)
[2016-11-04] MEDS: SENNOSIDES/DOCUSATE 8.6/50MG TABLET. PO SCH ×2 (09:31→20:43)
[2016-11-04] MEDS ORDERED: AMIODARONE 150 MG in IV DEXTROSE 5% 100 ML IV ONE (10:00)
--- NOTE | 2016-11-04 10:17 | PDOC ---
ANNE MARIE NI IMPREGNATOR HELPER 11/04/16 1017: CARDIO Progress Notes Date and Time Date of Service 11/04/2016 Time of Evaluation 1010 Subjective Subjective: No Chest Pain, No shortness of breath, No Palpitations, No Dizziness, Other (nauseated; fatigued) Comments: seated in chair Vitals Vitals Vital Signs Date Time Temp Pulse Resp B/P (MAP) Pulse Ox O2 Delivery O2 Flow Rate FiO2 11/04/16 09:32 16 100 Nasal Cannula 2.0 11/04/16 09:31 77 120/45 11/04/16 05:00 98.7 98.7 Weight Weight [ ] Stability Assessment Stability Assess.: unstable for transfer (Intesive V. sign monit. req) Input and Output Intake and Output Intake and Output 11/04/16 07:00 Intake Total 3515 ml Output Total 2675 ml Balance 840 ml Intake Oral 840 ml IV Total 1818 ml Blood Product 702 ml Blood Product IV Normal Saline Flush 155 ml Output Urine Total 2200 ml Chest Tube Drainage Total 475 ml Laboratory Labs Laboratory Tests Test 11/03/16 10:54 11/03/16 11:58 11/03/16 12:29 11/03/16 12:47 Bedside Hemoglobin (Calculated) 7.1 g/dL (12-15) 6.8 g/dL (12-15) 6.8 g/dL (12-15) 5.8 g/dL (12-15) Bedside Hematocrit 21 % (36-40) 20 % (36-40) 20 % (36-40) 17 % (36-40) Bedside Arterial pH 7.49 (7.35-7.45) 7.46 (7.35-7.45) 7.44 (7.35-7.45) 7.42 (7.35-7.45) Bedside Arterial pCO2 33 mmHg (35-45) 36 mmHg (35-45) 37 mmHg (35-45) 36 mmHg (35-45) Bedside Arterial pO2 341 mmHg (75-100) 338 mmHg (75-100) 312 mmHg (75-100) 442 mmHg (75-100) Bedside Arterial HCO3 25 mmol/L (21-28) 26 mmol/L (21-28) 25 mmol/L (21-28) 24 mmol/L (21-28) Bedside Arterial Total CO2 26 mmol/L (21-32) 27 mmol/L (21-32) 26 mmol/L (21-32) 25 mmol/L (21-32) Arterial Bld O2 Saturation (Measur) 100 % (95-99) 100 % (95-99) 100 % (95-99) 100 % (95-99) Bedside Arterial Blood Base Excess 2 mmol/L (0-3) 2 mmol/L (0-3) 1 mmol/L (0-3) -1 mmol/L (0-3) Bedside FiO2 70.0 70.0 75.0 100.0 Bedside Sodium 140 mmol/L (135-145) 140 mmol/L (135-145) 137 mmol/L (135-145) 140 mmol/L (135-145) Bedside Potassium 4.2 mmol/L (3.5-5.0) 3.8 mmol/L (3.5-5.0) 4.1 mmol/L (3.5-5.0) 3.3 mmol/L (3.5-5.0) Glucose Level 149 mg/dL (70-99) 138 mg/dL (70-99) 134 mg/dL (70-99) 113 mg/dL (70-99) Bedside Ionized Calcium (Maria Del Rosario) 1.00 mmol/L (1.13-1.32) 1.06 mmol/L (1.13-1.32) 1.09 mmol/L (1.13-1.32) 1.64 mmol/L (1.13-1.32) Test 11/03/16 12:55 11/03/16 13:34 11/03/16 14:15 11/03/16 14:16 White Blood Count 4.3 x10^3/uL (4.0-11.0) 5.1 x10^3/uL (4.0-11.0) Hemoglobin 5.9 g/dL (12.0-15.5) 7.9 g/dL (12.0-15.5) Hematocrit 17.2 % (36.0-47.0) 23.0 % (36.0-47.0) Platelet Count 69 x10^3/uL (140-400) 102 x10^3/uL (140-400) Prothrombin Time 19.6 SEC (11.7-14.0) 16.5 SEC (11.7-14.0) Prothromb Time International Ratio 1.8 (0.8-1.1) 1.4 (0.8-1.1) Activated Partial Thromboplast Time 34 SEC (24-38) Fibrinogen 242 mg/dL (200-440) Bedside Hemoglobin (Calculated) 7.1 g/dL (12-15) Bedside Hematocrit 21 % (36-40) Bedside Arterial pH 7.41 (7.35-7.45) Bedside Arterial pCO2 38 mmHg (35-45) Bedside Arterial pO2 289 mmHg (75-100) Bedside Arterial HCO3 24 mmol/L (21-28) Bedside Arterial Total CO2 25 mmol/L (21-32) Arterial Bld O2 Saturation (Measur) 100 % (95-99) Bedside Arterial Blood Base Excess 0 mmol/L (0-3) Bedside FiO2 100.0 Bedside Sodium 141 mmol/L (135-145) Bedside Potassium 3.3 mmol/L (3.5-5.0) Glucose Level 84 mg/dL (70-99) 91 mg/dL (70-99) Bedside Ionized Calcium (Maria Del Rosario) 1.52 mmol/L (1.13-1.32) Red Blood Count 2.52 x10^6/uL (3.50-5.40) Mean Corpuscular Volume 91 fL (79-100) Mean Corpuscular Hemoglobin 31 pg (25-35) Mean Corpuscular Hemoglobin Concent 34 g/dL (31-37) Red Cell Distribution Width 14.8 % (11.5-14.5) O2 Saturation 99 % (92-99) Arterial Blood pH 7.39 (7.35-7.45) Arterial Blood pCO2 at Patient Temp 35 mmHg (35-46) Arterial Blood pO2 at Patient Temp 465 mmHg (65-108) Arterial Blood HCO3 21 mmol/L (21-28) Arterial Blood Base Excess -4 mmol/L (-3-3) Oxyhemoglobin 98.2 % Methemoglobin 0.6 % (0.0-1.9) Carbon Monoxide, Quantitative 0.1 % (0.0-1.9) FiO2 100% Sodium Level 142 mmol/L (136-145) Potassium Level 3.8 mmol/L (3.5-5.1) Chloride Level 107 mmol/L (98-107) Carbon Dioxide Level 23 mmol/L (21-32) Anion Gap 12 (6-14) Blood Urea Nitrogen 24 mg/dL (7-20) Creatinine 1.2 mg/dL (0.6-1.0) Estimated GFR (Cockcroft-Gault) 44.4 Calcium Level 9.9 mg/dL (8.5-10.1) Magnesium Level 2.6 mg/dL (1.8-2.4) Glucose (Fingerstick) 98 mg/dL (70-99) Test 11/03/16 15:19 11/03/16 16:11 11/03/16 17:11 11/03/16 18:14 Glucose (Fingerstick) 177 mg/dL (70-99) 157 mg/dL (70-99) 162 mg/dL (70-99) 150 mg/dL (70-99) Test 11/03/16 18:15 11/03/16 19:00 11/03/16 19:17 11/03/16 20:24 White Blood Count 5.8 x10^3/uL (4.0-11.0) Red Blood Count 2.29 x10^6/uL (3.50-5.40) Hemoglobin 7.1 g/dL (12.0-15.5) Hematocrit 20.9 % (36.0-47.0) Mean Corpuscular Volume 92 fL (79-100) Mean Corpuscular Hemoglobin 31 pg (25-35) Mean Corpuscular Hemoglobin Concent 34 g/dL (31-37) Red Cell Distribution Width 15.1 % (11.5-14.5) Platelet Count 94 x10^3/uL (140-400) Potassium Level 5.5 mmol/L (3.5-5.1) O2 Saturation 98 % (92-99) Arterial Blood pH 7.33 (7.35-7.45) Arterial Blood pCO2 at Patient Temp 40 mmHg (35-46) Arterial Blood pO2 at Patient Temp 168 mmHg (65-108) Arterial Blood HCO3 21 mmol/L (21-28) Arterial Blood Base Excess -5 mmol/L (-3-3) FiO2 40 Glucose (Fingerstick) 155 mg/dL (70-99) 157 mg/dL (70-99) Test 11/03/16 21:21 11/03/16 22:26 11/03/16 23:21 11/04/16 00:23 Glucose (Fingerstick) 163 mg/dL (70-99) 111 mg/dL (70-99) 163 mg/dL (70-99) 175 mg/dL (70-99) Test 11/04/16 00:45 11/04/16 01:24 11/04/16 02:30 11/04/16 03:42 White Blood Count 7.0 x10^3/uL (4.0-11.0) Red Blood Count 3.31 x10^6/uL (3.50-5.40) Hemoglobin 10.4 g/dL (12.0-15.5) Hematocrit 30.4 % (36.0-47.0) Mean Corpuscular Volume 92 fL (79-100) Mean Corpuscular Hemoglobin 31 pg (25-35) Mean Corpuscular Hemoglobin Concent 34 g/dL (31-37) Red Cell Distribution Width 14.2 % (11.5-14.5) Platelet Count 93 x10^3/uL (140-400) Glucose (Fingerstick) 187 mg/dL (70-99) 166 mg/dL (70-99) 140 mg/dL (70-99) Test 11/04/16 04:54 11/04/16 05:15 11/04/16 05:58 11/04/16 07:15 Glucose (Fingerstick) 138 mg/dL (70-99) 134 mg/dL (70-99) 138 mg/dL (70-99) White Blood Count 7.8 x10^3/uL (4.0-11.0) Red Blood Count 3.37 x10^6/uL (3.50-5.40) Hemoglobin 10.7 g/dL (12.0-15.5) Hematocrit 31.3 % (36.0-47.0) Mean Corpuscular Volume 93 fL (79-100) Mean Corpuscular Hemoglobin 32 pg (25-35) Mean Corpuscular Hemoglobin Concent 34 g/dL (31-37) Red Cell Distribution Width 14.2 % (11.5-14.5) Platelet Count 95 x10^3/uL (140-400) Prothrombin Time 15.5 SEC (11.7-14.0) Prothromb Time International Ratio 1.3 (0.8-1.1) Sodium Level 142 mmol/L (136-145) Potassium Level 4.6 mmol/L (3.5-5.1) Chloride Level 108 mmol/L (98-107) Carbon Dioxide Level 24 mmol/L (21-32) Anion Gap 10 (6-14) Blood Urea Nitrogen 21 mg/dL (7-20) Creatinine 1.3 mg/dL (0.6-1.0) Estimated GFR (Cockcroft-Gault) 40.5 Glucose Level 133 mg/dL (70-99) Calcium Level 9.0 mg/dL (8.5-10.1) Magnesium Level 2.1 mg/dL (1.8-2.4) Triglycerides Level 160 mg/dL (0-150) Cholesterol Level 90 mg/dL (0-200) LDL Cholesterol, Calculated 39 mg/dL (0-100) VLDL Cholesterol, Calculated 32 mg/dL (0-40) Non-HDL Cholesterol Calculated 71 mg/dL (0-129) HDL Cholesterol 19 mg/dL (40-60) Cholesterol/HDL Ratio 4.7 Test 11/04/16 08:22 11/04/16 09:28 Glucose (Fingerstick) 129 mg/dL (70-99) 126 mg/dL (70-99) Radiology Rad Impression CXR: Comparison is made to yesterday's study. The ET tube, NG tube and Tamworth-Chiquis catheter have been removed. A right jugular vascular sheath remains in place. There appear to be 2 mediastinal drains and a left chest tube in place. The heart remains mildly enlarged. The pulmonary vascularity is normal. There is minimal linear atelectasis in the left base. The right lung is clear. There is no evidence of pneumothorax or pleural fluid. IMPRESSION: 1. Minimal left basilar linear atelectasis. 2. The postoperative chest is otherwise unremarkable. Physical Exam HEENT: Neck Supple W Full Motion Chest: Symmetric LUNGS: Other (coarse; decreased bases; mediastinal and pleuaral tubes) Heart: S1S2, RRR, no gallops, no murmurs, other (tele: SR) Abdomen: Soft N/T Extremities: No Edema, Other (CALOS on left; JESUS on right) Neurology: alert, oriented, follow commands Other Exams herrera cath: clear yellow Assessment Assessment CONTINUATION OF CARE NOTE 1. 3 vessel CAD CABG X 3 with DORANTES to LAD; SVG to OM; SVG to RCA; POD #1 fast track extubation completed on day of surgery management per CTS 2. HTN controlled with meds 3. HLD LDLs controlled @ 39 simvastatin converted to atorvastatin due to amiodarone use 4. depression continue meds 5. DM, II currently on insulin gtt. AMARILIS ULRICH MD 11/04/162052: CARDIO Progress Notes Assessment Assessment Patient seen and examined. Agree with ASSISTANT PRODUCER's assessment and plan. s/p extubation, doing well Tele did not show any significant arrhythmias Continue post op care per CTS ANNE MARIE NI APRN November 04, 2016 10:17 AMARILIS ULRICH MD November 04, 2016 20:53
--- NOTE | 2016-11-04 11:21 | PDOC ---
Progress Note Subjective Subjective Fast track extubation yesterday. Doing very well this morning. Normotensive and in sinus rhythm. Excellent urine output, minimal tube drainage. Cardiac index > 2. Labs and chest x-ray look great. ROS ROS No nausea No vomiting No SOB Mild pain No rash Vital Sign Vital Signs Vital Signs Date Time Temp Pulse Resp B/P (MAP) Pulse Ox O2 Delivery O2 Flow Rate FiO2 11/04/16 11:13 82 127/70 11/04/16 10:30 16 100 Nasal Cannula 2.0 11/04/16 05:00 98.7 98.7 Physical Exam PHYSICAL EXAM GENERAL: NAD, Alert HEENT: PERRL, OC/OP NECK: Supple, no JVD, no LN LUNGS: Clear HEART: S1S2, no gallop, no murmur, sternotomy: C/D/I ABD: Soft, NT, no organomegaly, no rebound EXT: No edema, no cyanosis MAMMOGRAPHY TECH: Alert, oriented x 3, no focal neurologic deficit SKIN: No rash IV: ok Labs Lab Laboratory Tests Test 11/03/16 11:27 11/03/16 11:58 11/03/16 12:00 11/03/16 12:29 Activated Clotting Time 574 SEC (90-125) 516 SEC (90-125) Bedside Hemoglobin (Calculated) 6.8 g/dL (12-15) 6.8 g/dL (12-15) Bedside Hematocrit 20 % (36-40) 20 % (36-40) Bedside Arterial pH 7.46 (7.35-7.45) 7.44 (7.35-7.45) Bedside Arterial pCO2 36 mmHg (35-45) 37 mmHg (35-45) Bedside Arterial pO2 338 mmHg (75-100) 312 mmHg (75-100) Bedside Arterial HCO3 26 mmol/L (21-28) 25 mmol/L (21-28) Bedside Arterial Total CO2 27 mmol/L (21-32) 26 mmol/L (21-32) Arterial Bld O2 Saturation (Measur) 100 % (95-99) 100 % (95-99) Bedside Arterial Blood Base Excess 2 mmol/L (0-3) 1 mmol/L (0-3) Bedside FiO2 70.0 75.0 Bedside Sodium 140 mmol/L (135-145) 137 mmol/L (135-145) Bedside Potassium 3.8 mmol/L (3.5-5.0) 4.1 mmol/L (3.5-5.0) Glucose Level 138 mg/dL (70-99) 134 mg/dL (70-99) Bedside Ionized Calcium (Maria Del Rosario) 1.06 mmol/L (1.13-1.32) 1.09 mmol/L (1.13-1.32) Test 11/03/16 12:34 11/03/16 12:47 11/03/16 12:49 11/03/16 12:55 Activated Clotting Time 457 SEC (90-125) 124 SEC (90-125) Bedside Hemoglobin (Calculated) 5.8 g/dL (12-15) Bedside Hematocrit 17 % (36-40) Bedside Arterial pH 7.42 (7.35-7.45) Bedside Arterial pCO2 36 mmHg (35-45) Bedside Arterial pO2 442 mmHg (75-100) Bedside Arterial HCO3 24 mmol/L (21-28) Bedside Arterial Total CO2 25 mmol/L (21-32) Arterial Bld O2 Saturation (Measur) 100 % (95-99) Bedside Arterial Blood Base Excess -1 mmol/L (0-3) Bedside FiO2 100.0 Bedside Sodium 140 mmol/L (135-145) Bedside Potassium 3.3 mmol/L (3.5-5.0) Glucose Level 113 mg/dL (70-99) Bedside Ionized Calcium (Maria Del Rosario) 1.64 mmol/L (1.13-1.32) White Blood Count 4.3 x10^3/uL (4.0-11.0) Hemoglobin 5.9 g/dL (12.0-15.5) Hematocrit 17.2 % (36.0-47.0) Platelet Count 69 x10^3/uL (140-400) Prothrombin Time 19.6 SEC (11.7-14.0) Prothromb Time International Ratio 1.8 (0.8-1.1) Activated Partial Thromboplast Time 34 SEC (24-38) Fibrinogen 242 mg/dL (200-440) Test 11/03/16 13:34 11/03/16 14:15 11/03/16 14:16 11/03/16 15:19 Bedside Hemoglobin (Calculated) 7.1 g/dL (12-15) Bedside Hematocrit 21 % (36-40) Bedside Arterial pH 7.41 (7.35-7.45) Bedside Arterial pCO2 38 mmHg (35-45) Bedside Arterial pO2 289 mmHg (75-100) Bedside Arterial HCO3 24 mmol/L (21-28) Bedside Arterial Total CO2 25 mmol/L (21-32) Arterial Bld O2 Saturation (Measur) 100 % (95-99) Bedside Arterial Blood Base Excess 0 mmol/L (0-3) Bedside FiO2 100.0 Bedside Sodium 141 mmol/L (135-145) Bedside Potassium 3.3 mmol/L (3.5-5.0) Glucose Level 84 mg/dL (70-99) 91 mg/dL (70-99) Bedside Ionized Calcium (Maria Del Rosario) 1.52 mmol/L (1.13-1.32) White Blood Count 5.1 x10^3/uL (4.0-11.0) Red Blood Count 2.52 x10^6/uL (3.50-5.40) Hemoglobin 7.9 g/dL (12.0-15.5) Hematocrit 23.0 % (36.0-47.0) Mean Corpuscular Volume 91 fL (79-100) Mean Corpuscular Hemoglobin 31 pg (25-35) Mean Corpuscular Hemoglobin Concent 34 g/dL (31-37) Red Cell Distribution Width 14.8 % (11.5-14.5) Platelet Count 102 x10^3/uL (140-400) Prothrombin Time 16.5 SEC (11.7-14.0) Prothromb Time International Ratio 1.4 (0.8-1.1) O2 Saturation 99 % (92-99) Arterial Blood pH 7.39 (7.35-7.45) Arterial Blood pCO2 at Patient Temp 35 mmHg (35-46) Arterial Blood pO2 at Patient Temp 465 mmHg (65-108) Arterial Blood HCO3 21 mmol/L (21-28) Arterial Blood Base Excess -4 mmol/L (-3-3) Oxyhemoglobin 98.2 % Methemoglobin 0.6 % (0.0-1.9) Carbon Monoxide, Quantitative 0.1 % (0.0-1.9) FiO2 100% Sodium Level 142 mmol/L (136-145) Potassium Level 3.8 mmol/L (3.5-5.1) Chloride Level 107 mmol/L (98-107) Carbon Dioxide Level 23 mmol/L (21-32) Anion Gap 12 (6-14) Blood Urea Nitrogen 24 mg/dL (7-20) Creatinine 1.2 mg/dL (0.6-1.0) Estimated GFR (Cockcroft-Gault) 44.4 Calcium Level 9.9 mg/dL (8.5-10.1) Magnesium Level 2.6 mg/dL (1.8-2.4) Glucose (Fingerstick) 98 mg/dL (70-99) 177 mg/dL (70-99) Test 11/03/16 16:11 11/03/16 17:11 11/03/16 18:14 11/03/16 18:15 Glucose (Fingerstick) 157 mg/dL (70-99) 162 mg/dL (70-99) 150 mg/dL (70-99) White Blood Count 5.8 x10^3/uL (4.0-11.0) Red Blood Count 2.29 x10^6/uL (3.50-5.40) Hemoglobin 7.1 g/dL (12.0-15.5) Hematocrit 20.9 % (36.0-47.0) Mean Corpuscular Volume 92 fL (79-100) Mean Corpuscular Hemoglobin 31 pg (25-35) Mean Corpuscular Hemoglobin Concent 34 g/dL (31-37) Red Cell Distribution Width 15.1 % (11.5-14.5) Platelet Count 94 x10^3/uL (140-400) Potassium Level 5.5 mmol/L (3.5-5.1) Test 11/03/16 19:00 11/03/16 19:17 11/03/16 20:24 11/03/16 21:21 O2 Saturation 98 % (92-99) Arterial Blood pH 7.33 (7.35-7.45) Arterial Blood pCO2 at Patient Temp 40 mmHg (35-46) Arterial Blood pO2 at Patient Temp 168 mmHg (65-108) Arterial Blood HCO3 21 mmol/L (21-28) Arterial Blood Base Excess -5 mmol/L (-3-3) FiO2 40 Glucose (Fingerstick) 155 mg/dL (70-99) 157 mg/dL (70-99) 163 mg/dL (70-99) Test 11/03/16 22:26 11/03/16 23:21 11/04/16 00:23 11/04/16 00:45 Glucose (Fingerstick) 111 mg/dL (70-99) 163 mg/dL (70-99) 175 mg/dL (70-99) White Blood Count 7.0 x10^3/uL (4.0-11.0) Red Blood Count 3.31 x10^6/uL (3.50-5.40) Hemoglobin 10.4 g/dL (12.0-15.5) Hematocrit 30.4 % (36.0-47.0) Mean Corpuscular Volume 92 fL (79-100) Mean Corpuscular Hemoglobin 31 pg (25-35) Mean Corpuscular Hemoglobin Concent 34 g/dL (31-37) Red Cell Distribution Width 14.2 % (11.5-14.5) Platelet Count 93 x10^3/uL (140-400) Test 11/04/16 01:24 11/04/16 02:30 11/04/16 03:42 11/04/16 04:54 Glucose (Fingerstick) 187 mg/dL (70-99) 166 mg/dL (70-99) 140 mg/dL (70-99) 138 mg/dL (70-99) Test 11/04/16 05:15 11/04/16 05:58 11/04/16 07:15 11/04/16 08:22 White Blood Count 7.8 x10^3/uL (4.0-11.0) Red Blood Count 3.37 x10^6/uL (3.50-5.40) Hemoglobin 10.7 g/dL (12.0-15.5) Hematocrit 31.3 % (36.0-47.0) Mean Corpuscular Volume 93 fL (79-100) Mean Corpuscular Hemoglobin 32 pg (25-35) Mean Corpuscular Hemoglobin Concent 34 g/dL (31-37) Red Cell Distribution Width 14.2 % (11.5-14.5) Platelet Count 95 x10^3/uL (140-400) Prothrombin Time 15.5 SEC (11.7-14.0) Prothromb Time International Ratio 1.3 (0.8-1.1) Sodium Level 142 mmol/L (136-145) Potassium Level 4.6 mmol/L (3.5-5.1) Chloride Level 108 mmol/L (98-107) Carbon Dioxide Level 24 mmol/L (21-32) Anion Gap 10 (6-14) Blood Urea Nitrogen 21 mg/dL (7-20) Creatinine 1.3 mg/dL (0.6-1.0) Estimated GFR (Cockcroft-Gault) 40.5 Glucose Level 133 mg/dL (70-99) Calcium Level 9.0 mg/dL (8.5-10.1) Magnesium Level 2.1 mg/dL (1.8-2.4) Triglycerides Level 160 mg/dL (0-150) Cholesterol Level 90 mg/dL (0-200) LDL Cholesterol, Calculated 39 mg/dL (0-100) VLDL Cholesterol, Calculated 32 mg/dL (0-40) Non-HDL Cholesterol Calculated 71 mg/dL (0-129) HDL Cholesterol 19 mg/dL (40-60) Cholesterol/HDL Ratio 4.7 Glucose (Fingerstick) 134 mg/dL (70-99) 138 mg/dL (70-99) 129 mg/dL (70-99) Test 11/04/16 09:28 11/04/16 10:46 Glucose (Fingerstick) 126 mg/dL (70-99) 115 mg/dL (70-99) Objective Assessment POD#1, s/p CABG x 3 (DORANTES to LAD, SVG to RCA, SVG to OM). Fast track extubation yesterday. Doing very well this morning. Normotensive and in sinus rhythm. Excellent urine output, minimal tube drainage. Cardiac index > 2. Labs and chest x-ray look great. Plan Plan of Care D/c swan-Chiquis D/c a-line D/c mediastinal drains Start diuresis with 20mg iv lasix daily ASA, b jose and statin Amiodarone 200mg po BID, after 150mg iv bolus for AFib prophylaxis Ambulate and incentive spirometry EUNICE LUGO MD November 04, 2016 11:21
[2016-11-04] MEDS: PARoxetine 20 MG TABLET PO SCH (14:05)
[2016-11-04] MEDS: CITALOPRAM 20 MG TABLET. PO SCH (14:05)
[2016-11-04] MEDS: INSULIN REGULAR VIAL 150 UNIT in 0.9 % SODIUM CHLORIDE 150ML 150 ML IV PRN (17:47)
[2016-11-04] MEDS: ATORVASTATIN CALCIUM 20 MG TABLET PO SCH (20:43)
[2016-11-04] MEDS: ALPRAZolam 0.5 MG TABLET PO SCH (20:43)
[2016-11-04] MEDS: FAMOTIDINE 20 MG TABLET. PO SCH (20:43)
[2016-11-04] MEDS ORDERED: AMIODARONE HCL 200 MG TABLET. PO SCH (21:00)
[2016-11-04] MEDS ORDERED: SERTRALINE 50 MG TABLET. PO SCH (21:00)
[2016-11-05] VITALS (18 sets, daily range): BP systolic 103–140; BP diastolic 57–72
[2016-11-05] MEDS: CITALOPRAM 20 MG TABLET. PO SCH (08:26)
[2016-11-05] MEDS: METOPROLOL TART IMMED RELEASE 25 MG TABLET. PO SCH ×2 (08:26→21:30)
[2016-11-05] MEDS: PARoxetine 20 MG TABLET PO SCH (08:26)
[2016-11-05] MEDS: SENNOSIDES/DOCUSATE 8.6/50MG TABLET. PO SCH ×2 (08:27→21:28)
[2016-11-05] MEDS: ASPIRIN ENTERIC COATED 325 MG TABLET.DR. PO SCH (08:27)
[2016-11-05] MEDS: AMIODARONE HCL 200 MG TABLET. PO SCH (08:27)
[2016-11-05] MEDS: ALPRAZolam 0.5 MG TABLET PO SCH ×2 (08:28→21:28)
--- NOTE | 2016-11-05 08:49 | RAD ---
Indication: Chest pain. Technique: Upright portable chest radiograph was obtained and compared to a study from one day earlier. Findings: Right IJ central line or sheath is in place. Left large-caliber chest tube is again noted. Left basilar opacity is noted with the left hemidiaphragm now obscured. Right lung is clear. Heart is enlarged. Median sternotomy wires are noted. Leads overlie the patient. A mediastinal drain appears to have been removed since prior exam. Impression: 1. Cardiomegaly. 2. Left basilar opacity may represent atelectasis or infiltrate, possibly with small effusion. 3. Right IJ line and left chest tube are in position
--- NOTE | 2016-11-05 11:22 | PDOC ---
CARDIO Progress Notes Date and Time Date of Service 11/05/2016 Time of Evaluation 1115 Subjective Subjective: No Chest Pain, No shortness of breath, No Palpitations, No Dizziness, Other (chest incision pain controlled) Comments: seated in chair Vitals Vitals Vital Signs Date Time Temp Pulse Resp B/P (MAP) Pulse Ox O2 Delivery O2 Flow Rate FiO2 11/05/16 11:07 69 24 126/66 (86) 98 Room Air 11/05/16 08:00 97.9 97.9 11/04/16 10:30 2.0 Weight Weight [ ] Stability Assessment Stability Assess.: unstable for transfer (Intesive V. sign monit. req) Input and Output Intake and Output Intake and Output 11/05/16 07:00 Intake Total 2368.1 ml Output Total 1732 ml Balance 636.1 ml Intake Oral 1020 ml IV Total 1348.1 ml Output Urine Total 1602 ml Chest Tube Drainage Total 130 ml Laboratory Labs Laboratory Tests Test 11/04/16 11:50 11/04/16 13:06 11/04/16 14:25 11/04/16 15:31 Glucose (Fingerstick) 185 mg/dL (70-99) 200 mg/dL (70-99) 155 mg/dL (70-99) 178 mg/dL (70-99) Test 11/04/16 16:45 11/04/16 17:42 11/04/16 18:46 11/04/16 19:49 Glucose (Fingerstick) 171 mg/dL (70-99) 152 mg/dL (70-99) 115 mg/dL (70-99) 143 mg/dL (70-99) Test 11/04/16 20:46 11/04/16 21:56 11/04/16 23:03 11/05/16 00:00 Glucose (Fingerstick) 161 mg/dL (70-99) 155 mg/dL (70-99) 146 mg/dL (70-99) 129 mg/dL (70-99) Test 11/05/16 01:05 11/05/16 02:09 11/05/16 03:12 11/05/16 04:16 Glucose (Fingerstick) 103 mg/dL (70-99) 110 mg/dL (70-99) 114 mg/dL (70-99) 109 mg/dL (70-99) Test 11/05/16 05:19 11/05/16 06:21 11/05/16 07:27 11/05/16 08:30 Glucose (Fingerstick) 106 mg/dL (70-99) 107 mg/dL (70-99) 130 mg/dL (70-99) 129 mg/dL (70-99) Test 11/05/16 09:34 11/05/16 10:53 Glucose (Fingerstick) 211 mg/dL (70-99) 161 mg/dL (70-99) Physical Exam HEENT: Neck Supple W Full Motion Chest: Symmetric LUNGS: Other (basilar crackles; chest tube in place with serosanguinous drain) Heart: S1S2, RRR (SR no significant ectopies) Abdomen: Soft N/T Extremities: No Edema, No Calf Tenderness Neurology: alert, oriented, follow commands Assessment Assessment 1. 3 vessel CAD CABG X 3 with DORANTES to LAD; SVG to OM; SVG to RCA; POD #2 S/P extubation, tolerating solid meal management per CTS Continue with secondary prevention Amiodarone in place, Continue supportive care. 2. HTN well controlled 3. HLD well controlled, continue on lipitor. 4. Depression continue meds 5. DM, II Insulin gtt ongoing, per CTS, BG controlled ANGELA CISSE APRN November 05, 2016 11:22
[2016-11-05] MEDS: oxyCODONE/APAP 5/325 1 TAB TABLET PO PRN ×2 (12:59→19:28)
[2016-11-05] MEDS: FUROSEMIDE 20 MG/2 ML VIAL. IVP SCH (14:31)
--- NOTE | 2016-11-05 14:34 | PDOC ---
Progress Note Subjective Subjective Doing very well. Normotensive and in sinus rhythm. Boderline urine output, minimal chest tube drainage. Ambulating. Blood glucose 170-210 on 2 units/hr insulin ROS ROS No nausea No vomiting No SOB No pain No rash Vital Sign Vital Signs Vital Signs Date Time Temp Pulse Resp B/P (MAP) Pulse Ox O2 Delivery O2 Flow Rate FiO2 11/05/16 12:59 20 98 Room Air 11/05/16 11:07 69 126/66 (86) 11/05/16 08:00 97.9 97.9 11/04/16 10:30 2.0 Physical Exam PHYSICAL EXAM GENERAL: NAD, Alert HEENT: PERRL, OC/OP NECK: Supple, no JVD, no LN LUNGS: Clear HEART: S1S2, no gallop, no murmur, sternotomy: C/D/I ABD: Soft, NT, no organomegaly, no rebound EXT: No edema, no cyanosis RADIO DISC JOCKEY: Alert, oriented x 3, no focal neurologic deficit SKIN: No rash IV: ok Labs Lab Laboratory Tests Test 11/04/16 15:31 11/04/16 16:45 11/04/16 17:42 11/04/16 18:46 Glucose (Fingerstick) 178 mg/dL (70-99) 171 mg/dL (70-99) 152 mg/dL (70-99) 115 mg/dL (70-99) Test 11/04/16 19:49 11/04/16 20:46 11/04/16 21:56 11/04/16 23:03 Glucose (Fingerstick) 143 mg/dL (70-99) 161 mg/dL (70-99) 155 mg/dL (70-99) 146 mg/dL (70-99) Test 11/05/16 00:00 11/05/16 01:05 11/05/16 02:09 11/05/16 03:12 Glucose (Fingerstick) 129 mg/dL (70-99) 103 mg/dL (70-99) 110 mg/dL (70-99) 114 mg/dL (70-99) Test 11/05/16 04:16 11/05/16 05:19 11/05/16 06:21 11/05/16 07:27 Glucose (Fingerstick) 109 mg/dL (70-99) 106 mg/dL (70-99) 107 mg/dL (70-99) 130 mg/dL (70-99) Test 11/05/16 08:30 11/05/16 09:34 11/05/16 10:53 11/05/16 12:54 Glucose (Fingerstick) 129 mg/dL (70-99) 211 mg/dL (70-99) 161 mg/dL (70-99) 207 mg/dL (70-99) Objective Assessment POD#2, s/p CABG x 3 (DORANTES to LAD, SVG to RCA, SVG to OM). Doing very well. Normotensive and in sinus rhythm. Boderline urine output, minimal chest tube drainage. Ambulating. CXR looks good. Plan Plan of Care D/c pleural drain D/c cordis D/c herrera Start 50 units Levamir, with high intensity sliding scale. D/c insulin drip. Continue diuresis with 20mg iv lasix daily ASA, b jose and statin Amiodarone 200mg po daily for AFib prophylaxis Ambulate and incentive spirometry Transfer to stepdown EUNICE LUGO MD November 05, 2016 14:34
[2016-11-05] MEDS ORDERED: DEXTROSE 50% 25 GM / 50ML DISP.SYRIN. IV PRN (14:45)
[2016-11-05 14:54] LABS: HEMOGLOBIN 10.7 g/dL (12.0-15.5); RED BLOOD COUNT 3.36 x10^6/uL (3.50-5.40); RED CELL DISTRIBUTION WIDTH 14.4 % (11.5-14.5)
[2016-11-05] MEDS ORDERED: INSULIN DETEMIR 300 UNITS/3 ML INSULN.PEN. SQ SCH (15:00)
[2016-11-05 15:23] LABS: CALCIUM 8.8 mg/dL (8.5-10.1); CREATININE 1.2 mg/dL (0.6-1.0); GFR 44.4; MAGNESIUM 2.2 mg/dL (1.8-2.4); POTASSIUM 3.9 mmol/L (3.5-5.1)
[2016-11-05] MEDS ORDERED: INSULIN ASPART 300 UNITS/3 ML INSULN.PEN SQ ONE (15:30)
[2016-11-05] MEDS: INSULIN ASPART 300 UNITS/3 ML INSULN.PEN SQ SCH (17:36)
[2016-11-05] MEDS: ATORVASTATIN CALCIUM 20 MG TABLET PO SCH (21:28)
[2016-11-05] MEDS: FAMOTIDINE 20 MG TABLET. PO SCH (21:28)
[2016-11-06] MEDS: oxyCODONE/APAP 5/325 1 TAB TABLET PO PRN ×3 (04:19→21:34)
[2016-11-06 04:24] VITALS: BP 140/72
[2016-11-06 07:00] VITALS: BP 119/58
[2016-11-06] MEDS: INSULIN ASPART 300 UNITS/3 ML INSULN.PEN SQ SCH ×3 (08:00→17:00)
[2016-11-06] MEDS: SENNOSIDES/DOCUSATE 8.6/50MG TABLET. PO SCH ×2 (08:14→21:33)
[2016-11-06] MEDS: ASPIRIN ENTERIC COATED 325 MG TABLET.DR. PO SCH (08:14)
[2016-11-06] MEDS: ALPRAZolam 0.5 MG TABLET PO SCH ×2 (08:16→21:34)
[2016-11-06] MEDS: CITALOPRAM 20 MG TABLET. PO SCH (08:16)
[2016-11-06] MEDS: AMIODARONE HCL 200 MG TABLET. PO SCH (08:16)
[2016-11-06] MEDS: PARoxetine 20 MG TABLET PO SCH (08:16)
[2016-11-06] MEDS: METOPROLOL TART IMMED RELEASE 25 MG TABLET. PO SCH ×2 (08:17→21:35)
[2016-11-06] MEDS: INSULIN DETEMIR 300 UNITS/3 ML INSULN.PEN. SQ SCH (08:20)
--- NOTE | 2016-11-06 08:46 | RAD ---
Indication: Chest tube removal. Technique: Upright portable chest radiograph was obtained. Comparison is from earlier on the same day. Findings: Left chest tube has been removed, no pneumothorax is apparent. Left basilar atelectasis is likely present. Right lung is clear. Heart is enlarged. Median sternotomy wires are noted. Right IJ sheath or line is present. Leads overlie the patient. Impression: 1. No evidence of pneumothorax post left chest tube removal. 2. Cardiomegaly.
--- NOTE | 2016-11-06 08:54 | RAD ---
Indication: Postoperative chest pain. Technique: Upright portable chest radiograph was obtained. Comparison is from one day earlier. Findings: Left basilar opacity persists. Right lung is clear. Heart is upper limits of normal in size. There is no heart failure. Right IJ line has been removed. Median sternotomy wires are noted. Leads overlie the patient. Impression: 1. Cardiomegaly. 2. Left basilar opacity may represent atelectasis and effusion, similar to prior.
[2016-11-06] MEDS: FUROSEMIDE 20 MG/2 ML VIAL. IVP SCH (09:00)
[2016-11-06 11:00] VITALS: BP 110/49
--- NOTE | 2016-11-06 12:41 | PDOC ---
Progress Note Subjective Subjective Doing very well. Normotensive and in sinus rhythm. On room air. Ambulating. Blood glucose 170s on 50 units Levamer and sliding scale. ROS ROS No nausea No vomiting No pain No rash Vital Sign Vital Signs Vital Signs Date Time Temp Pulse Resp B/P (MAP) Pulse Ox O2 Delivery O2 Flow Rate FiO2 11/06/16 11:00 97.6 66 110/49 (69) 95 Room Air 97.6 11/06/16 07:00 18 Physical Exam PHYSICAL EXAM GENERAL: NAD, Alert HEENT: PERRL, OC/OP NECK: Supple, no JVD, no LN LUNGS: Clear HEART: S1S2, no gallop, no murmur, sternotomy: C/D/I ABD: Soft, NT, no organomegaly, no rebound EXT: No edema, no cyanosis HISTOLOGY TECHNICIAN: Alert, oriented x 3, no focal neurologic deficit SKIN: No rash IV: ok Labs Lab Laboratory Tests Test 11/05/16 12:54 11/05/16 14:16 11/05/16 14:45 11/05/16 15:14 Glucose (Fingerstick) 207 mg/dL (70-99) 193 mg/dL (70-99) 165 mg/dL (70-99) White Blood Count 10.0 x10^3/uL (4.0-11.0) Red Blood Count 3.36 x10^6/uL (3.50-5.40) Hemoglobin 10.7 g/dL (12.0-15.5) Hematocrit 31.0 % (36.0-47.0) Mean Corpuscular Volume 92 fL (79-100) Mean Corpuscular Hemoglobin 32 pg (25-35) Mean Corpuscular Hemoglobin Concent 34 g/dL (31-37) Red Cell Distribution Width 14.4 % (11.5-14.5) Platelet Count 121 x10^3/uL (140-400) Sodium Level 138 mmol/L (136-145) Potassium Level 3.9 mmol/L (3.5-5.1) Chloride Level 103 mmol/L (98-107) Carbon Dioxide Level 26 mmol/L (21-32) Anion Gap 9 (6-14) Blood Urea Nitrogen 29 mg/dL (7-20) Creatinine 1.2 mg/dL (0.6-1.0) Estimated GFR (Cockcroft-Gault) 44.4 Glucose Level 163 mg/dL (70-99) Calcium Level 8.8 mg/dL (8.5-10.1) Magnesium Level 2.2 mg/dL (1.8-2.4) Test 11/05/16 17:32 11/05/16 21:27 Glucose (Fingerstick) 172 mg/dL (70-99) 171 mg/dL (70-99) Objective Assessment POD#3, s/p CABG x 3 (DORANTES to LAD, SVG to RCA, SVG to OM). Doing very well. Normotensive and in sinus rhythm. On room air. Ambulating. Blood glucose 170s on 50 units Levamer and sliding scale. Plan Plan of Care Continue 50 units Levamir, with high intensity sliding scale. Continue diuresis with 20mg iv lasix daily ASA, b jose and statin Amiodarone 200mg po daily for AFib prophylaxis Ambulate and incentive spirometry D/c pacing wires tomorrow Home on Monday No more labs or CXRs EUNICE LUGO MD November 06, 2016 12:41
[2016-11-06 14:57] VITALS: BP 110/46
[2016-11-06 19:35] VITALS: BP 131/61
[2016-11-06] MEDS: FAMOTIDINE 20 MG TABLET. PO SCH (21:33)
[2016-11-06] MEDS: ATORVASTATIN CALCIUM 20 MG TABLET PO SCH (21:34)
[2016-11-06 23:30] VITALS: BP 114/49
[2016-11-07 03:35] VITALS: BP 119/52
[2016-11-07] MEDS: INSULIN ASPART 300 UNITS/3 ML INSULN.PEN SQ SCH ×3 (08:00→17:00)
[2016-11-07 08:28] VITALS: BP 131/62
[2016-11-07] MEDS: ASPIRIN ENTERIC COATED 325 MG TABLET.DR. PO SCH (09:17)
[2016-11-07] MEDS: CITALOPRAM 20 MG TABLET. PO SCH (09:17)
[2016-11-07] MEDS: PARoxetine 20 MG TABLET PO SCH (09:17)
[2016-11-07] MEDS: ALPRAZolam 0.5 MG TABLET PO SCH ×2 (09:18→21:11)
[2016-11-07] MEDS: AMIODARONE HCL 200 MG TABLET. PO SCH (09:18)
[2016-11-07] MEDS: SENNOSIDES/DOCUSATE 8.6/50MG TABLET. PO SCH ×2 (09:19→21:11)
[2016-11-07] MEDS: METOPROLOL TART IMMED RELEASE 25 MG TABLET. PO SCH ×2 (09:19→21:12)
[2016-11-07] MEDS: FUROSEMIDE 20 MG/2 ML VIAL. IVP SCH (09:19)
[2016-11-07] MEDS: oxyCODONE/APAP 5/325 1 TAB TABLET PO PRN ×3 (09:33→21:12)
[2016-11-07] MEDS: INSULIN DETEMIR 300 UNITS/3 ML INSULN.PEN. SQ SCH (09:36)
[2016-11-07 11:00] VITALS: BP 134/61
--- NOTE | 2016-11-07 11:21 | PDOC ---
CARDIO Progress Notes Date and Time Date of Service 11/07/2016 Time of Evaluation 1120 Subjective Subjective: No Chest Pain, No shortness of breath, No Palpitations, No Dizziness Comments: seated in chair Vitals Vitals Vital Signs Date Time Temp Pulse Resp B/P (MAP) Pulse Ox O2 Delivery O2 Flow Rate FiO2 11/07/16 09:33 18 11/07/16 09:19 74 11/07/16 09:18 131/62 11/07/16 08:28 99.2 98 Room Air 99.2 Weight Weight [ ] Stability Assessment Stability Assess.: unstable for transfer (Intesive V. sign monit. req) Input and Output Intake and Output Intake and Output 11/07/16 06:59 Intake Total 610 ml Output Total 525 ml Balance 85 ml Intake Oral 610 ml Output Urine Total 525 ml # Bowel Movements 1 Laboratory Labs Laboratory Tests Test 11/06/16 20:47 11/07/16 08:05 Glucose (Fingerstick) 151 mg/dL (70-99) 117 mg/dL (70-99) Physical Exam HEENT: Neck Supple W Full Motion Chest: Symmetric LUNGS: Clear to Auscultation Heart: S1S2, RRR (SR no significant ectopies), no murmurs, other (tele: SR; no dysrhythmias) Abdomen: Soft N/T Extremities: No Edema, No Calf Tenderness Neurology: alert, oriented, follow commands Assessment Assessment 1. 3 vessel CAD CABG X 3 with DORANTES to LAD; SVG to OM; SVG to RCA; POD #4 fast track extubation completed on day of surgery management per CTS 2. HTN controlled with meds 3. HLD LDLs controlled @ 39 simvastatin converted to atorvastatin due to amiodarone use 4. depression continue meds 5. DM, II controlled on usual meds Increase activity Likely home in ANNE MARIE Sharp APRN November 07, 2016 11:21
--- NOTE | 2016-11-07 13:22 | PDOC ---
Progress Note Subjective Subjective Doing very well, no issues. Normotensive and in sinus rhythm. On room air. Ambulating. ROS ROS No nausea No vomiting No pain No SOB No rash Vital Sign Vital Signs Vital Signs Date Time Temp Pulse Resp B/P (MAP) Pulse Ox O2 Delivery O2 Flow Rate FiO2 11/07/16 11:00 98.3 66 18 134/61 (85) 100 Room Air 98.3 Physical Exam PHYSICAL EXAM GENERAL: NAD, Alert HEENT: PERRL, OC/OP NECK: Supple, no JVD, no LN LUNGS: Clear HEART: S1S2, no gallop, no murmur, sternotomy: C/D/I ABD: Soft, NT, no organomegaly, no rebound EXT: No edema, no cyanosis [employer] CRE[employer] WARMER: Alert, oriented x 3, no focal neurologic deficit SKIN: No rash IV: ok Labs Lab Laboratory Tests Test 11/06/16 20:47 11/07/16 08:05 Glucose (Fingerstick) 151 mg/dL (70-99) 117 mg/dL (70-99) Objective Assessment POD#4, s/p CABG x 3 (DORANTES to LAD, SVG to RCA, SVG to OM). Doing very well. Normotensive and in sinus rhythm. On room air. Ambulating. Plan Plan of Care Continue 50 units Levamir, with high intensity sliding scale. D/c with home insulin regimen Continue diuresis with 20mg iv lasix daily. Continue 20mg po Lasix at home for 5 days ASA, b jose and statin Amiodarone 200mg po daily for AFib prophylaxis, will stop prior to discharge D/c pacing wires Home tomorrow EUNICE LUGO MD November 07, 2016 13:22
[2016-11-07 16:21] VITALS: BP 146/65
[2016-11-07 19:00] VITALS: BP 155/67
[2016-11-07] MEDS: ATORVASTATIN CALCIUM 20 MG TABLET PO SCH (21:11)
[2016-11-07] MEDS: FAMOTIDINE 20 MG TABLET. PO SCH (21:11)
[2016-11-07 22:53] VITALS: BP 129/56
[2016-11-08 03:06] VITALS: BP 118/58
[2016-11-08 07:00] VITALS: BP 108/60
[2016-11-08] MEDS: INSULIN ASPART 300 UNITS/3 ML INSULN.PEN SQ SCH ×2 (08:00→13:08)
[2016-11-08] MEDS: INSULIN DETEMIR 300 UNITS/3 ML INSULN.PEN. SQ SCH (08:00)
[2016-11-08] MEDS: FUROSEMIDE 20 MG/2 ML VIAL. IVP SCH (08:22)
[2016-11-08] MEDS: CITALOPRAM 20 MG TABLET. PO SCH (08:23)
[2016-11-08] MEDS: ASPIRIN ENTERIC COATED 325 MG TABLET.DR. PO SCH (08:23)
[2016-11-08] MEDS: METOPROLOL TART IMMED RELEASE 25 MG TABLET. PO SCH (08:23)
[2016-11-08] MEDS: PARoxetine 20 MG TABLET PO SCH (08:23)
[2016-11-08] MEDS: ALPRAZolam 0.5 MG TABLET PO SCH (08:23)
[2016-11-08] MEDS: AMIODARONE HCL 200 MG TABLET. PO SCH (08:23)
[2016-11-08] MEDS: SENNOSIDES/DOCUSATE 8.6/50MG TABLET. PO SCH (08:24)
[2016-11-08 11:04] VITALS: BP 112/56
[2016-11-08] MEDS ORDERED: SENN-22 PO (12:58)
[2016-11-08] MEDS ORDERED: METO25TA4 PO (12:58)
[2016-11-08] MEDS ORDERED: FURO20TA3 PO (12:58)
[2016-11-08] MEDS ORDERED: ASPI325T11 PO (12:58)
[2016-11-08] MEDS ORDERED: ATOR20TA58 PO (12:58)
[2016-11-08] MEDS ORDERED: OXYC1TAB7 PO (12:58)
--- NOTE | 2016-11-08 13:24 | PDOC3 ---
Discharge Summary* Date of Admission: November 03, 2016 Date of Discharge: November 08, 2016 Admitting Diagnosis 1. 3 vessel CAD 2. previous NSTEMI 3. hypertension, benign essential 4. hyperlipidemia 5. DM, II 6. COPD Final Diagnosis 1. 3 vessel CAD 2. previous NSTEMI 3. hypertension, benign essential 4. hyperlipidemia 5. DM, II 6. COPD 7. acute blood loss anemia associated with operative procedure CONSULTS none Procedures November 03, 2016 1. Coronary artery bypass grafting 3 (left internal mammary artery to the left anterior descending artery, saphenous vein graft to the obtuse marginal, saphenous vein graft to distal right coronary artery) 2. Left endoscopic greater saphenous vein harvesting Brief Hospital Course Ms. Clark is a 71 old female with a history of dyspnea and abnormal MPI. Subsequent cardiac catheterization demonstrated 3 vessel CAD and coronary revascularization advised. Patient agreeable with pre-operative evaluation completed as outpatient. Returned on 11/03/2016 to undergo CABG X 3 with DORANTES to LAD, SVG to OM and SVG to distal RCA. Fast track extubation the night of surgery. Mediastinal tubes removed day 1 with subsequent removal of pleural tube and pacing wires. Activity progressively increased and ambulating with minimal assistance. Wounds healing; without edema or drainage; minimal erythema at sites. CBG 120s to 170s with insulin. Last CXR on 11/06/16 with mild atelectasis/effusion on left. Discharged on furosemide X 5 days. Will follow up with CTS in about 2 weeks. Disposition/Orders: D/C to Home Diet: Cardiac (and diabetic) Scheduled Aspirin (Aspirin Ec), 325 MG PO DAILYWBKFT Atorvastatin Calcium (Atorvastatin Calcium), 20 MG PO QHS Citalopram Hydrobromide (Citalopram Hbr), 20 MG PO DAILY, (Reported) Furosemide (Furosemide), 1 TAB PO DAILY Insulin Glargine,Hum.rec.anlog (Toujeo Solostar), 80 UNIT SQ DAILY, (Reported) Metformin Hcl (Glucophage), 500 MG PO BIDWMEALS, (Reported) Metoprolol Tartrate (Metoprolol Tartrate), 25 MG PO BID Paroxetine Hcl (Paxil), 20 MG PO DAILY, (Reported) Sennosides/Docusate Sodium (Senna-Time S Tablet), 1 TAB PO BID Scheduled PRN Oxycodone Hcl/Acetaminophen (Oxycodone-Acetaminophen 5-325), 2 TAB PO PRN Q4HRS PRN for MODERATE PAIN, SEVERE PAIN Discontinued Medications Alprazolam (Xanax), 1 TAB PO TID, (Reported) Furosemide (Furosemide), 20 MG PO DAILY, (Reported) Gemfibrozil (Gemfibrozil), 600 MG PO DAILY, (Reported) Lisinopril (Lisinopril), 1 TAB PO DAILY, (Reported) Oxycodone/Apap 7.5-325 (Percocet 7.5-325 Mg Tablet), 1 TAB PO BID, (Reported) Simvastatin (Simvastatin), 1 TAB PO QHS, (Reported) FOLLOW UP APPOINTMENT: Dr. Daphne Rothman on 11/17/2016 @ 2:15 p.m. with chest x-ray one hour before at hospital Dr. Gwyn Tyler on 12/08/2016 @ 0915 PCP in about 5 days Time Spent Total time spent with patient> 35 minutes for coordination of care, counseling, and education. ANNE MARIE NI VETERINARY RADIOLOGIST November 08, 2016 13:24
--- NOTE | 2016-11-08 13:28 | PDOC ---
CARDIO Progress Notes Date and Time Date of Service 11/08/2016 Time of Evaluation 1327 Subjective Subjective: No Chest Pain, No shortness of breath, No Palpitations, No Dizziness Comments: seated in chair Vitals Vitals Vital Signs Date Time Temp Pulse Resp B/P (MAP) Pulse Ox O2 Delivery O2 Flow Rate FiO2 11/08/16 11:04 99.4 67 18 112/56 (74) 98 Room Air 99.4 11/07/16 21:12 2.0 Weight Weight [ ] Stability Assessment Stability Assess.: unstable for transfer (Intesive V. sign monit. req) Input and Output Intake and Output Intake and Output 11/08/16 07:00 Intake Total 700 ml Output Total 1400 ml Balance -700 ml Intake Oral 700 ml Output Urine Total 1400 ml # Voids 2 Laboratory Labs Laboratory Tests Test 11/07/16 17:21 11/07/16 20:47 Glucose (Fingerstick) 124 mg/dL (70-99) 142 mg/dL (70-99) Physical Exam HEENT: Neck Supple W Full Motion Chest: Symmetric LUNGS: Clear to Auscultation Heart: S1S2, RRR (SR no significant ectopies), no murmurs, other (tele: SR; no dysrhythmias) Abdomen: Soft N/T Extremities: No Edema, No Calf Tenderness Neurology: alert, oriented, follow commands Assessment Assessment 1. 3 vessel CAD CABG X 3 with DORANTES to LAD; SVG to OM; SVG to RCA; POD #4 fast track extubation completed on day of surgery management per CTS planned discharge today 2. HTN controlled with meds 3. HLD LDLs controlled @ 39 simvastatin converted to atorvastatin due to amiodarone use 4. depression continue meds 5. DM, II controlled on usual meds continue to increase activity follow up with Dr. Tyler in about 4 weeks ANNE MARIE NI STONE CRUSHER OPERATOR November 08, 2016 13:28
--- NOTE | 2016-11-08 14:42 | PDOC ---
Progress Note Subjective Subjective Doing very well, no issues. Normotensive and in sinus rhythm. On room air. ROS ROS No nausea No vomiting No pain No rash Vital Sign Vital Signs Vital Signs Date Time Temp Pulse Resp B/P (MAP) Pulse Ox O2 Delivery O2 Flow Rate FiO2 11/08/16 11:04 99.4 67 18 112/56 (74) 98 Room Air 99.4 11/07/16 21:12 2.0 Physical Exam PHYSICAL EXAM GENERAL: NAD, Alert HEENT: PERRL, OC/OP NECK: Supple, no JVD, no LN LUNGS: Clear HEART: S1S2, no gallop, no murmur, sternotomy: C/D/I ABD: Soft, NT, no organomegaly, no rebound EXT: No edema, no cyanosis LEATHER GRADER: Alert, oriented x 3, no focal neurologic deficit SKIN: No rash IV: ok Labs Lab Laboratory Tests Test 11/07/16 17:21 11/07/16 20:47 Glucose (Fingerstick) 124 mg/dL (70-99) 142 mg/dL (70-99) Objective Assessment POD#5, s/p CABG x 3 (DORANTES to LAD, SVG to RCA, SVG to OM). Doing very well. Normotensive and in sinus rhythm. On room air. Plan Plan of Care D/c home D/c prophylactic amiodarone Continue 20mg po Lasix at home for 5 days F/u in clinic in 2-3 weeks with CXR beforehand EUNICE LUGO MD November 08, 2016 14:42
== END 2016-11-08 15:57 | disposition home or self-care (01) | DRG 236 ==
LOC: OPSVCIP 05:55 → 1 WEST ICU 09:34 → 2 NORTH 11-06 07:36
PROVIDERS: ADMIT Thoracic Surgery (Cardiothoracic Vascular Surgery); ATTEND Thoracic Surgery (Cardiothoracic Vascular Surgery)
PROC: 021109W Bypass Coronary Artery, Two Arteries from Aorta with Autologous Venous Tissue, Open Approach (ICD-10-PCS; 2016-11-03)
PROC: 06BQ4ZZ Excision of Left Saphenous Vein, Percutaneous Endoscopic Approach (ICD-10-PCS; 2016-11-03)
PROC: 0W9B30Z Drainage of Left Pleural Cavity with Drainage Device, Percutaneous Approach (ICD-10-PCS; 2016-11-03)
PROC: 5A1221Z Performance of Cardiac Output, Continuous (ICD-10-PCS; 2016-11-03)
PROC: 30233N1 Transfusion of Nonautologous Red Blood Cells into Peripheral Vein, Percutaneous Approach (ICD-10-PCS; 2016-11-03)
PROC: 02100Z9 Bypass Coronary Artery, One Artery from Left Internal Mammary, Open Approach (ICD-10-PCS; principal; 2016-11-03 07:30)
DX: I25.10 Atherosclerotic heart disease of native coronary artery without angina pectoris (principal); D62 Acute posthemorrhagic anemia; J98.11 Atelectasis; J44.9 Chronic obstructive pulmonary disease, unspecified; E11.9 Type 2 diabetes mellitus without complications; E78.5 Hyperlipidemia, unspecified; F32.9 Major depressive disorder, single episode, unspecified; I10 Essential (primary) hypertension; I25.2 Old myocardial infarction; Z82.49 Family history of ischemic heart disease and other diseases of the circulatory system; Z83.3 Family history of diabetes mellitus
CPT/HCPCS: 36415; 36600; 71010; 80048; 80061; 82803; 82805; 82947; 83735; 84132; 85027; 85347; 85384; 85610; 85730; 86850; 86900; 86901; 86920; 93005; 94002; 94250; C1781; J0171; J0282; J0690; J1644; J1815; J2150; J2175; J2250; J2270; J2440; J3370; J3475; J3480; J3490; J7030; J7040; J7120; P9016; P9041; P9045; P9046; S0028; C9248

== ENCOUNTER → 2016-11-18 | Outpatient (CLI) | payer OTHER ==
[2016-11-08 11:04] VITALS: BP 112/56
[~2016-11-18] MED LIST changes: +ASPI325T11 PO; +ATOR20TA58 PO; +METO25TA4 PO; +OXYC1TAB7 PO; +SENN-22 PO
--- NOTE | 2016-11-18 13:36 | RAD ---
Exam: PA and lateral chest radiograph History: Status post CABG. Comparison: 11/06/2016. Findings: Cardiac silhouette appears borderline in size. Median sternotomy wires are present. There is interval enlargement of the left pleural effusion, still small. Very small right pleural effusion is seen. No pneumothorax is identified. Left basilar density is favored to be atelectasis. Impression: 1. Small left pleural effusion, larger since previous study. Associated left basilar atelectasis. 2. Very small right pleural effusion.
--- NOTE | 2016-11-18 16:19 | RAD ---
Indication status post harvesting of the greater saphenous vein. Status post coronary artery bypass surgery. Swelling. Grayscale color Doppler and spectral imaging was performed. The examination was targeted to the veins of the left lower extremity. The common femoral, femoral and popliteal veins demonstrate normal flow compressibility and augmentation. No thrombus is seen. The visualized calf veins appeared unremarkable. Fluid collections were seen in the area of the knee probably reflecting hematomas. IMPRESSION: Negative left lower extremity venous analysis for DVT Fluid collections, probably reflecting hematoma, in the area of the knee.
== END | disposition home or self-care (01) ==
LOC: RAD 12:53
PROVIDERS: ATTEND Thoracic Surgery (Cardiothoracic Vascular Surgery)
DX: Z95.1 Presence of aortocoronary bypass graft (principal); J98.11 Atelectasis; J90 Pleural effusion, not elsewhere classified
CPT/HCPCS: 71020; 93971

== ENCOUNTER 2017-02-07 14:10 | Emergency (ER) | payer OTHER ==
[~2017-02-07] VITALS: Ht 162.6 cm; Wt 71.7 kg
[~2017-02-07 14:10] MED LIST changes: -OXYC-244 PO; +OXYC-327 PO; -PARO20TA55 PO; +PARO20TA99 PO
[2017-02-07 14:13] VITALS: BP 146/67
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
== END 2017-02-07 16:53 | disposition home or self-care (01) ==
LOC: ER 14:10 → EEVIPCON 14:10 → ER 16:53
DX: S40.811A Abrasion of right upper arm, initial encounter (principal); S20.219A Contusion of unspecified front wall of thorax, initial encounter; E78.00 Pure hypercholesterolemia, unspecified; I11.9 Hypertensive heart disease without heart failure; Z95.1 Presence of aortocoronary bypass graft; Y92.89 Other specified places as the place of occurrence of the external cause; Y99.8 Other external cause status; Y93.89 Activity, other specified; Y08.89XA Assault by other specified means, initial encounter
CPT/HCPCS: 71010; 99283

== ENCOUNTER → 2017-06-13 | Outpatient (CLI) | payer OTHER ==
--- NOTE | 2017-06-13 12:09 | RAD ---
MR#: [id number] Date of Study: 06/13/2017 Ordering Physician: AMARILIS ULRICH, Referring Physician: AMARILIS ULRICH, Tech: ZULEYMA William, RDMS, RTR APPROVED REPORT Patient Location: OUT-PATIENT Laterality:Bilateral Indications Bruit left bruit, htn, dm, unusual headaches Risk Factors Hypertension: Diabetes, Doppler Spectral Velocity Analysis Right Left mCCA 65/12 cm/smCCA 56/14 cm/s ECA 131/ cm/sECA 137/ cm/s pICA 66/17 cm/spICA 125/26 cm/s Katie 86/20 cm/smICA 112/20 cm/s dICA 69/16 cm/sdICA 86/21 cm/s Vert. 49/ cm/sVert. 29/ cm/s ICA/CCA 1.32ICA/CCA 2.23 Findings Parker scale images of the bilateral carotid arterial vessels were obtained. There is mild intimal hype rplasia on the right and moderate plaque at the carotid bulb on the left. Velocities are as noted above suggestive of 0 to less than 50% stenosis on the right and approximatel y 50% visual stenosis on the left and via veloccity ratios (ICA/CCA - 2.23) Critical Notification Critical Value: No <Conclusion> 1. Moderate (50%) left sided carotid arterial disease 2. Antegrade vertebral velocities. Signed by : Lev Lorenzo, Electronically Approved : 06/13/2017 12:08:28
--- NOTE | 2017-06-13 14:16 | CARD ---
MR#: [id number] Date of Study: 06/13/2017 Ordering Physician: AMARILIS TYLER, Referring Physician: AMARILIS TYLER Tech: Zaid Klein [facility] APPROVED REPORT EXAM: Two-dimensional and M-mode echocardiogram with Doppler and color Doppler. Other Information HR: 63bpm INDICATION Congestive Heart Failure RISK FACTORS Hypertension Obesity Hyperlipidemia Family History 2D DIMENSIONS RVDd2.4 (2.9-3.5cm)Left Atrium(2D)3.8 (1.6-4.0cm) IVSd1.5 (0.7-1.1cm)Aortic Root(2D)2.3 (2.0-3.7cm) LVDd4.2 (3.9-5.9cm)LVOT Diameter1.9 (1.8-2.4cm) PWd1.1 (0.7-1.1cm)LVDs2.6 (2.5-4.0cm) FS (%) 37.7 %SV52.8 ml LVEF(%)68.2 (>50%) Aortic Valve AoV Peak Kenyon.171.1cm/sAoV VTI42.9cm AO Peak GR.11.7mmHgLVOT Peak Kenyon.80.6cm/s AO Mean GR.6mmHgAVA (VMAX)1.03cm2 AI P 1/2 Cyaz378xk Mitral Valve MV E Lxwgwlou31.5cm/sMV E Peak Gr.37mmHg MV DECEL [id number] A Znecathd73.9cm/s MV IDS40qrQ/A Ratio1.2 MVA (PHT)3.31cm2 TDI E/Lateral E'11.2E/Medial E'18.7 Pulmonary Valve PV Peak Ozlssanp815.9cm/sPV Peak Grad.4mmHg RVOT VTI23.6cm Tricuspid Valve TR P. Ddseqgsd350db/sTR Peak Gr.19mmHg Pulmonary Vein S1 Ssrnfsmd22.4cm/sD2 Usrnxzmq88.3cm/s LEFT VENTRICLE The left ventricle is normal size. There is mild septal hypertrophy. The left ventricular systolic fu nction is normal. The Ejection Fraction is 55-60%. There is normal LV segmental wall motion. The left ventricular diastolic function and filling is normal for age. RIGHT VENTRICLE The right ventricle is normal size. The right ventricular systolic function is normal. ATRIA The left atrium size is normal. The right atrium size is normal. The interatrial septum is intact wit h no evidence for an atrial septal defect or patent foramen ovale as noted on 2-D or Doppler imaging. AORTIC VALVE The aortic valve is mildly thickened but opens well. Doppler and Color Flow revealed mild aortic regu rgitation. There is no significant aortic valvular stenosis. There is no aortic valvular vegetation. MITRAL VALVE The mitral valve is mildly thickened. Mitral annular calcification is mild. There is no evidence of m itral valve prolapse. There is no mitral valve stenosis. Doppler and Color-flow revealed mild mitral regurgitation. TRICUSPID VALVE The tricuspid valve leaflets are thickened , but open well. Doppler and Color Flow revealed trace to mild tricuspid regurgitation. There is no tricuspid valve prolapse or vegetation. There is no tricusp id valve stenosis. PULMONIC VALVE The pulmonary valve is normal in structure and function. Doppler and Color Flow revealed trace pulmon ic valvular regurgitation. There is no pulmonic valvular stenosis. GREAT VESSELS The aortic root is normal in size. The IVC is normal in size and collapses >50% with inspiration. PERICARDIAL EFFUSION There is no pleural effusion. There is no evidence of significant pericardial effusion. Critical Notification Critical Value: No <Conclusion> The left ventricular systolic function is normal. The Ejection Fraction is 55-60%. There is normal LV segmental wall motion. Mild aortic regurgitation. Mild mitral regurgitation. Trace to mild tricuspid regurgitation. There is no evidence of significant pericardial effusion. Signed by : Amarilis Tyler, Electronically Approved : 06/13/2017 14:15:24
== END | disposition home or self-care (01) ==
LOC: ECHO 08:51
PROVIDERS: ATTEND Internal Medicine Cardiovascular Disease
DX: I08.3 Combined rheumatic disorders of mitral, aortic and tricuspid valves (principal); I25.810 Atherosclerosis of coronary artery bypass graft(s) without angina pectoris; I10 Essential (primary) hypertension; E11.9 Type 2 diabetes mellitus without complications; I77.89 Other specified disorders of arteries and arterioles; E78.5 Hyperlipidemia, unspecified
CPT/HCPCS: 93306; 93880

== ENCOUNTER → 2018-06-01 | Outpatient (CLI) | payer OTHER, MEDICARE ==
[2018-04-30 07:00] VITALS: BP 154/52
[~2018-06-01] MED LIST changes: +ALPR1TAB6 PO; +BUPR150T6 PO; -CITA20TA5 PO; +CITA20TA6 PO; +CITA40TA5 PO; +GABA300C18 PO; +GABA600T2 PO; -GEMF600T3 PO; +GEMF600T8 PO; +LISI1TAB5 PO; +ONDA4TAB11 PO; -OXYC-327 PO; +OXYC-411 PO; +OXYC1TAB19 PO; +QUET50TA5 PO; +SIMV40TA3 PO
--- NOTE | 2018-06-01 12:48 | CARD ---
MR#: [id number] Date of Study: 06/01/2018 Ordering Physician: AMARILIS TYLER, Referring Physician: AMARILIS TYLER, Tech: Bisi Perez APPROVED REPORT EXAM: Two-dimensional and M-mode echocardiogram with Doppler and color Doppler. Other Information Quality : AverageHR: 63bpm INDICATION CAD RISK FACTORS Hypertension Hyperlipidemia Diabetes 2D DIMENSIONS RVDd2.9 (2.9-3.5cm)Left Atrium(2D)4.1 (1.6-4.0cm) IVSd0.9 (0.7-1.1cm)Aortic Root(2D)2.6 (2.0-3.7cm) LVDd5.2 (3.9-5.9cm)LVOT Diameter1.9 (1.8-2.4cm) PWd1.0 (0.7-1.1cm)LVDs3.9 (2.5-4.0cm) FS (%) 24.8 %SV63.4 ml LVEF(%)48.8 (>50%) Aortic Valve AoV Peak Kenyon.177.1cm/sAoV VTI41.0cm AO Peak GR.12.5mmHgLVOT Peak Kenyon.99.0cm/s LVOT VTI 25.63cmAO Mean GR.7mmHg RYAN (VMAX)1.49xu6XAB (VTI)1.70cm2 AI P 1/2 Ieko742nk Mitral Valve MV E Peopafic515.3cm/sMV DECEL XTGD516kg MV A Kthajlyy84.7cm/sMV XHY79hp E/A Ratio1.5MVA (PHT)3.31cm2 TDI E/Lateral E'13.7E/Medial E'18.2 Pulmonary Valve PV Peak Mfhriuhh795.8cm/sPV Peak Grad.6mmHg Tricuspid Valve TR P. Duborkjj396zg/sRAP JBEHKPUJ8reSv TR Peak Gr.66qtKeDRXE40qoGu LEFT VENTRICLE The left ventricle is normal size. There is normal left ventricular wall thickness. The left ventricu lar systolic function is normal. The Ejection Fraction is 45-50%. There is normal LV segmental wall m otion. Transmitral Doppler flow pattern is normal for age. RIGHT VENTRICLE The right ventricle is normal size. There is normal right ventricular wall thickness. The right ventr icular systolic function is normal. ATRIA The left atrium is borderline dilated. The right atrium size is normal. The interatrial septum is int act with no evidence for an atrial septal defect or patent foramen ovale as noted on 2-D or Doppler i maging. AORTIC VALVE The aortic valve is thickened but opens well. Doppler and Color Flow revealed no significant aortic r egurgitation. There is no significant aortic valvular stenosis. MITRAL VALVE The mitral valve is normal in structure and function. There is no evidence of mitral valve prolapse. There is no mitral valve stenosis. Doppler and Color-flow revealed trace mitral regurgitation. TRICUSPID VALVE The tricuspid valve is normal in structure and function. Doppler and Color Flow revealed trace tricus pid regurgitation. There is no tricuspid valve stenosis. PULMONIC VALVE The pulmonic valve is not well visualized. Doppler and Color Flow revealed mild pulmonic valvular reg urgitation. GREAT VESSELS The aortic root is normal in size. The IVC is normal in size and collapses >50% with inspiration. PERICARDIAL EFFUSION There is no evidence of significant pericardial effusion. Critical Notification Critical Value: No <Conclusion> The left ventricular systolic function is normal. The Ejection Fraction is 45-50%. There is normal LV segmental wall motion. Trace mitral regurgitation. Trace tricuspid regurgitation. There is no evidence of significant pericardial effusion. Signed by : Amarilis Tyler, Electronically Approved : 06/01/2018 12:46:25
== END | disposition home or self-care (01) ==
LOC: ECHO 09:07
PROVIDERS: ATTEND Internal Medicine Cardiovascular Disease
DX: I37.1 Nonrheumatic pulmonary valve insufficiency (principal); I25.810 Atherosclerosis of coronary artery bypass graft(s) without angina pectoris; I10 Essential (primary) hypertension; E78.49 Other hyperlipidemia; E11.9 Type 2 diabetes mellitus without complications; Z79.4 Long term (current) use of insulin
CPT/HCPCS: 93306

== ENCOUNTER → 2018-06-14 | Outpatient (CLI) | payer OTHER, MEDICARE ==
[2018-04-30 07:00] VITALS: BP 154/52
--- NOTE | 2018-06-21 08:47 | RAD ---
MR#: [id number] Date of Study: 06/14/2018 Ordering Physician: AMARILIS ULRICH, Referring Physician: AMARILIS ULRICH, Tech: Bisi Cali, JAY JAY, RVT, RTR APPROVED REPORT Patient Location: OUT-PATIENT Laterality:Bilateral Indications carotid stenosis Doppler Spectral Velocity Analysis Right Left pCCA 65/7 cm/spCCA 84/15 cm/s mCCA 69/12 cm/smCCA 84/17 cm/s dCCA 89/12 cm/sdCCA 86/16 cm/s Bulb 139/16 cm/sBulb 296/32 cm/s pICA 63/14 cm/spICA 245/34 cm/s Katie 67/15 cm/smICA 79/16 cm/s dICA 79/19 cm/sdICA 75/16 cm/s Vert. 50/ cm/sVert. 32/ cm/s ICA/CCA 0.89ICA/CCA 2.92 Findings Grayscale images of the bilateral carotid arterial vessels reveals moderate diffuse plaque involving the carotid bulbs and extending eccentrically into the external and internal carotid vessels. On the right spectral waveforms and color Doppler are suggestive of moderate 50-69% stenosis involvin g the carotid bulb extending as noted into the internal and external carotid vessels. Due to tortuosi ty and calcification the ostium of the external and internal carotid vessels is not well visualized n onetheless there does not appear to be any critical stenosis. ICA to CCA ratios are grossly within no rmal limits. On the left elevated velocities are noted in the carotid bulb extending again into the internal and e xternal carotid vessels. The color Doppler velocities are elevated in the proximal internal carotid a rtery suggestive of greater than 70% stenosis. ICA to CCA ratio is 3. Bilateral vertebral velocities are antegrade. Critical Notification Critical Value: No <Conclusion> 1. There is moderate disease on the right of approximately 50-69% involving the carotid bulb and exte rnal and internal carotid vessels. 2. There is likely significant stenosis involving the left carotid bulb extending into the internal c arotid vessels of greater than 70%. 3. Would recommend dedicated CT angiogram of the neck for further delineation. Signed by : Lev Lorenzo, Electronically Approved : 06/21/2018 08:45:19
== END | disposition home or self-care (01) ==
LOC: US 14:28
PROVIDERS: ATTEND Internal Medicine Cardiovascular Disease
DX: I65.21 Occlusion and stenosis of right carotid artery (principal)
CPT/HCPCS: 93880

== ENCOUNTER → 2018-08-29 | Outpatient (CLI) | payer MEDICARE, OTHER ==
[2018-04-30 07:00] VITALS: BP 154/52
[~2018-08-29] MED LIST changes: -GABA600T2 PO; +GABA600T7 PO
[2018-08-29 16:08] LABS: CALCIUM 9.5 mg/dL (8.5-10.1); CREATININE 1.1 mg/dL (0.6-1.0); GFR 48.8; POTASSIUM 4.4 mmol/L (3.5-5.1)
[2018-08-29 16:14] LABS: ALBUMIN 3.9 g/dL (3.4-5.0); ALBUMIN/GLOBULIN RATIO 0.9 (1.0-1.7); TOTAL BILIRUBIN 0.4 mg/dL (0.2-1.0); TOTAL PROTEIN 8.4 g/dL (6.4-8.2)
== END | disposition home or self-care (01) ==
LOC: SPEC 15:46
PROVIDERS: ATTEND Family Medicine
DX: E78.5 Hyperlipidemia, unspecified (principal); E11.9 Type 2 diabetes mellitus without complications; I25.10 Atherosclerotic heart disease of native coronary artery without angina pectoris; F33.9 Major depressive disorder, recurrent, unspecified; I10 Essential (primary) hypertension; I73.9 Peripheral vascular disease, unspecified; R11.2 Nausea with vomiting, unspecified; E87.5 Hyperkalemia; M54.5 Low back pain; G89.29 Other chronic pain
CPT/HCPCS: 36415; 80053

== ENCOUNTER → 2019-04-19 | Outpatient (CLI) | payer OTHER ==
[2018-04-30 07:00] VITALS: BP 154/52
[~2019-04-19] MED LIST changes: +LISI1TAB19 PO; -LISI1TAB5 PO; +SIMV10TA15 PO; -SIMV10TA3 PO; +SIMV40TA18 PO; -SIMV40TA3 PO
--- NOTE | 2019-04-19 17:01 | RAD ---
KUB History: Nausea and vomiting. Abdominal pain. Technique: Supine view the abdomen. Comparison: None. Findings: Nonobstructed bowel gas pattern. Minimal small bowel gas. Moderate colonic stool. Multilevel lumbar spondylosis. Mild hip DJD. Impression: 1. Nonobstructed bowel gas pattern. Electronically signed by: Jamaal Payton DO (04/19/2019 4:58 PM) [facility]
== END | disposition home or self-care (01) ==
LOC: RAD 12:39
PROVIDERS: ATTEND Nurse Practitioner Family
DX: M47.816 Spondylosis without myelopathy or radiculopathy, lumbar region (principal); M16.0 Bilateral primary osteoarthritis of hip; R10.84 Generalized abdominal pain; R11.2 Nausea with vomiting, unspecified
CPT/HCPCS: 74018

== ENCOUNTER 2019-06-12 22:43 | Inpatient (IN) | payer OTHER, MEDICARE ==
[~2019-06-12] VITALS: Ht 167.6 cm; Wt 72.6 kg
[2019-06-12] MEDS ORDERED: IV NORMAL SALINE 1000ML BAG 1,000 ML IV ONE (23:30)
[2019-06-12] MEDS ORDERED: ONDANSETRON PF 4 MG/2 ML VIAL. IV ONE (23:30)
[2019-06-12 23:43] LABS: BASO % 1 % (0-3); EOS % 0 % (0-3); HEMATOCRIT 43.4 % (36.0-47.0); HEMOGLOBIN 14.9 g/dL (12.0-15.5); LYMPH # 1.1 x10^3/uL (1.0-4.8); LYMPH % 13 % (24-48); MEAN CORPUSCULAR HEMOGLOBIN 31 pg (25-35); MEAN CORPUSCULAR HGB CONC 34 g/dL (31-37); MEAN CORPUSCULAR VOLUME 91 fL (79-100); MONO # 0.3 x10^3/uL (0.0-1.1); MONO % 4 % (0-9); NEUT # 6.7 x10^3/uL (1.8-7.7); NEUT % 83 % (31-73); PLATELET COUNT 197 x10^3/uL (140-400); RED BLOOD COUNT 4.79 x10^6/uL (3.50-5.40); RED CELL DISTRIBUTION WIDTH 13.3 % (11.5-14.5); WHITE BLOOD COUNT 8.1 x10^3/uL (4.0-11.0)
[2019-06-12 23:56] LABS: CALCIUM 9.8 mg/dL (8.5-10.1); CREATININE 1.2 mg/dL (0.6-1.0); POTASSIUM 3.7 mmol/L (3.5-5.1)
[2019-06-13 00:10] LABS: ALBUMIN 4.3 g/dL (3.4-5.0); ALBUMIN/GLOBULIN RATIO 1.1 (1.0-1.7); TOTAL BILIRUBIN 0.9 mg/dL (0.2-1.0); TOTAL PROTEIN 8.3 g/dL (6.4-8.2)
[2019-06-13] MEDS ORDERED: IOHEXOL 300 MG/ML 100ML VIAL. IV ONE (01:00)
[2019-06-13] MEDS ORDERED: CONTRAST GIVEN. MC PRN (01:00)
--- NOTE | 2019-06-13 01:17 | RAD ---
Exam: CT abdomen and pelvis with contrast INDICATION: Intractable nausea vomiting TECHNIQUE: Sequential axial images through the abdomen and pelvis obtained following the administration of 60 mL of Omni 300 IV contrast. Sagittal and coronal reformatted images were reconstructed from the axial data and reviewed. Comparisons: 11/02/2016 FINDINGS: Heart size is normal. No pericardial strandy opacities at the dependent portion the lung bases likely representing atelectasis. No pleural effusion. The left hepatic lobe of the liver is atrophic with a hypoattenuating partially calcified lesion underneath the left hemidiaphragm this is unchanged compared to the prior CT in 2017. Spleen, pancreas, gallbladder and adrenals are unremarkable. A straight symmetric enhancement. No perinephric inflammation or hydronephrosis. No renal or ureteral calculi are identified. Bladder is decompressed not well evaluated. Uterus is not enlarged. No abnormal adnexal mass. Large and small bowel are unremarkable. Appendix is not identified. No free intra-abdominal air or fluid. Abdominal aorta has a normal course and caliber. Abdominal vasculature is patent. No enlarged intra-abdominal lymph nodes are identified. Bilateral pars interarticularis defect at L5 with grade 1 anterolisthesis of L5 on S1. No suspicious osseous lesions or acute fractures. IMPRESSION: 1. No acute process identified within the abdomen or pelvis. Normal appearance of the bowel without evidence for obstruction. 2. Chronic findings as described above Exposure: One or more of the following in the visualized dose reduction techniques were utilized for this examination: 1. Automated exposure control 2. Adjustment of the MA and/or KV according to patient size 3. Use of iterative of reconstructive technique Electronically signed by: Дмитрий Cheatham MD (06/13/2019 1:14 AM) [id number]
--- NOTE | 2019-06-13 01:25 | PHYS DOC ---
Past Medical History Past Medical History: Anxiety, CAD, Depression, Diabetes-Type II, High Cholesterol, Heart Disease, Hypertension Past Surgical History: Coronary Bypass Surgery, Other Additional Past Surgical Histo: liver biopsy Alcohol Use: None Drug Use: None Adult General Chief Complaint Chief Complaint: NAUSEA/VOMITING/DIARRHA HPI HPI 74-year-old female with underlying history of diabetes, hypertension presents to the emergency department with intractable nausea, vomiting. She describes several month history of symptoms. She denies any recent GI consultation or further workup. Patient denies any fever or abdominal discomfort. She does describe approximate 40 pound weight loss in the last 2 months. Given her symptoms she presented to the ER for further evaluation. Her is at the bedside and states she has not had any particular oral intake today given that she has been vomiting. She states she was told this is secondary to her nerves. Nothing makes her symptoms better. Review of Systems Review of Systems Constitutional: Denies fever or chills [] Respiratory: Denies cough or shortness of breath [] Cardiovascular: No additional information not addressed in HPI [] GI: + nausea, vomiting, no bloody stools or diarrhea [] Musculoskeletal: Denies back pain or joint pain [] Integument: Denies rash or skin lesions [] Neurologic: Denies headache, focal weakness or sensory changes [] All other systems were reviewed and found to be within normal limits, except as documented in this note. Current Medications Current Medications Current Medications Medications (Trade) Dose Ordered Sig/Isidro Start Time Stop Time Status Last Admin Dose Admin Info (CONTRAST GIVEN -- Rx MONITORING) 1 each PRN DAILY PRN 06/13/19 01:00 06/15/19 00:59 Iohexol (Omnipaque 300 Mg/ml) 60 ml 1X ONCE 06/13/19 01:00 06/13/19 01:01 DC 06/13/19 00:58 60 ML Ondansetron HCl (Zofran) 4 mg 1X ONCE 06/12/19 23:30 06/12/19 23:31 DC 06/13/19 00:15 4 MG Sodium Chloride 1,000 ml @ 1,000 mls/hr 1X ONCE 06/12/19 23:30 06/13/19 00:29 DC 06/13/19 00:15 1,000 MLS/HR Allergies Allergies Allergies Coded Allergies Type Severity Reaction Last Updated Verified Sulfa (Sulfonamide Antibiotics) Allergy Intermediate Rash 5/18/17 Yes Physical Exam Physical Exam Constitutional: Well developed, well nourished, no acute distress, non-toxic appearance. [] HENT: Normocephalic, atraumatic, bilateral external ears normal, oropharynx moist, no oral exudates, nose normal. [] Eyes: PERRLA, EOMI, conjunctiva normal, no discharge. [] Cardiovascular:Heart rate regular rhythm, no murmur [] Lungs & Thorax: Bilateral breath sounds clear to auscultation [] Abdomen: Bowel sounds normal, soft, no tenderness, no masses, no pulsatile masses. [] Skin: Warm, dry, no erythema, no rash. [] Back: No tenderness, no CVA tenderness. [] Extremities: No tenderness, no edema. [] Neurologic: Alert and oriented X 3, no focal deficits noted. [] Psychologic: Affect normal, judgement normal, mood normal. [] Current Patient Data Vital Signs Vital Signs Date Time Temp Pulse Resp B/P (MAP) Pulse Ox O2 Delivery O2 Flow Rate FiO2 06/13/19 00:28 62 200/75 (116) 92 Room Air 06/12/19 22:55 98.1 17 98.1 Lab Values Laboratory Tests Test 06/12/19 23:12 06/12/19 23:30 Glucose (Fingerstick) 192 mg/dL (70-99) H White Blood Count 8.1 x10^3/uL (4.0-11.0) Red Blood Count 4.79 x10^6/uL (3.50-5.40) Hemoglobin 14.9 g/dL (12.0-15.5) Hematocrit 43.4 % (36.0-47.0) Mean Corpuscular Volume 91 fL (79-100) Mean Corpuscular Hemoglobin 31 pg (25-35) Mean Corpuscular Hemoglobin Concent 34 g/dL (31-37) Red Cell Distribution Width 13.3 % (11.5-14.5) Platelet Count 197 x10^3/uL (140-400) Neutrophils (%) (Auto) 83 % (31-73) H Lymphocytes (%) (Auto) 13 % (24-48) L Monocytes (%) (Auto) 4 % (0-9) Eosinophils (%) (Auto) 0 % (0-3) Basophils (%) (Auto) 1 % (0-3) Neutrophils # (Auto) 6.7 x10^3/uL (1.8-7.7) Lymphocytes # (Auto) 1.1 x10^3/uL (1.0-4.8) Monocytes # (Auto) 0.3 x10^3/uL (0.0-1.1) Eosinophils # (Auto) 0.0 x10^3/uL (0.0-0.7) Basophils # (Auto) 0.0 x10^3/uL (0.0-0.2) Sodium Level 138 mmol/L (136-145) Potassium Level 3.7 mmol/L (3.5-5.1) Chloride Level 96 mmol/L (98-107) L Carbon Dioxide Level 31 mmol/L (21-32) Anion Gap 11 (6-14) Blood Urea Nitrogen 14 mg/dL (7-20) Creatinine 1.2 mg/dL (0.6-1.0) H Estimated GFR (Cockcroft-Gault) 44.0 BUN/Creatinine Ratio 12 (6-20) Glucose Level 219 mg/dL (70-99) H Lactic Acid Level 2.3 mmol/L (0.4-2.0) H Calcium Level 9.8 mg/dL (8.5-10.1) Total Bilirubin 0.9 mg/dL (0.2-1.0) Aspartate Amino Transferase (AST) 20 U/L (15-37) Alanine Aminotransferase (ALT) 25 U/L (14-59) Alkaline Phosphatase 92 U/L (46-116) Troponin I Quantitative < 0.017 ng/mL (0.000-0.055) Total Protein 8.3 g/dL (6.4-8.2) H Albumin 4.3 g/dL (3.4-5.0) Albumin/Globulin Ratio 1.1 (1.0-1.7) Lipase 161 U/L (73-393) Laboratory Tests 06/12/19 23:30 Laboratory Tests 06/12/19 23:30 EKG EKG [] Radiology/Procedures Radiology/Procedures [facility] [address] [place], [place] [id number] IMAGING REPORT Signed PATIENT: ENOC DOTSONNATE: [id number] : 1945 LOCATION: ER AGE: 74 SEX: F EXAM STATUS: REG ER ORD. PHYSICIAN: MINAL HENRIQUEZ MD REASON: intractable nausea/vomiting , weight loss PROCEDURE: CT ABD PELV W/ IV CONTRST ONLY Exam: CT abdomen and pelvis with contrast INDICATION: Intractable nausea vomiting TECHNIQUE: Sequential axial images through the abdomen and pelvis obtained following the administration of 60 mL of Omni 300 IV contrast. Sagittal and coronal reformatted images were reconstructed from the axial data and reviewed. Comparisons: 11/02/2016 FINDINGS: Heart size is normal. No pericardial strandy opacities at the dependent portion the lung bases likely representing atelectasis. No pleural effusion. The left hepatic lobe of the liver is atrophic with a hypoattenuating partially calcified lesion underneath the left hemidiaphragm this is unchanged compared to the prior CT in 2017. Spleen, pancreas, gallbladder and adrenals are unremarkable. A straight symmetric enhancement. No perinephric inflammation or hydronephrosis. No renal or ureteral calculi are identified. Bladder is decompressed not well evaluated. Uterus is not enlarged. No abnormal adnexal mass. Large and small bowel are unremarkable. Appendix is not identified. No free intra-abdominal air or fluid. Abdominal aorta has a normal course and caliber. Abdominal vasculature is patent. No enlarged intra-abdominal lymph nodes are identified. Bilateral pars interarticularis defect at L5 with grade 1 anterolisthesis of L5 on S1. No suspicious osseous lesions or acute fractures. IMPRESSION: 1. No acute process identified within the abdomen or pelvis. Normal appearance of the bowel without evidence for obstruction. 2. Chronic findings as described above Exposure: One or more of the following in the visualized dose reduction techniques were utilized for this examination: 1. Automated exposure control 2. Adjustment of the MA and/or KV according to patient size 3. Use of iterative of reconstructive technique Electronically signed by: Дмитрий Fox MD (06/13/2019 1:14 AM) [facility] DICTATED and SIGNED BY: ДМИТРИЙ FOX MD DATE: 06/13/19 0114 [] Course & Med Decision Making Course & Med Decision Making Pertinent Labs and Imaging studies reviewed. (See chart for details) []74-year-old female with underlying history of diabetes, hypertension presents to the emergency department with intractable nausea, vomiting. She describes several month history of symptoms. She denies any recent GI consultation or further workup. Patient denies any fever or abdominal discomfort. She does describe approximate 40 pound weight loss in the last 2 months. Given her symptoms she presented to the ER for further evaluation. Her is at the bedside and states she has not had any particular oral intake today given that she has been vomiting. She states she was told this is secondary to her nerves. Nothing makes her symptoms better. Laboratory values reviewed, white blood cell, 8.1, troponin negative, lactic acid mildly elevated at 2.3, creatinine 1.2, blood sugar 219. No evidence of acute acidosis appreciated. Given patient's intractable nausea, vomiting with 40 pound weight loss and no GI workup to date would recommend admission to the hospital and further evaluation. DT of her abdomen and pelvis was performed to rule out intra-abdominal process however negative. Discussed Admit with Dr. Mireles [phone] agrees with admission and further GI workup Dragon Disclaimer Dragon Disclaimer This electronic medical record was generated, in whole or in part, using a voice recognition dictation system. Departure Departure Impression: Primary Impression: Intractable nausea and vomiting Additional Impression: Weight loss Disposition: ADMITTED INPATIENT Admitting Physician: Santana Mireles Condition: STABLE Referrals: SANTANA MIRELES MD (PCP) Problem Qualifiers MINAL HENRIQUEZ MD Jun 13, 2019 01:25
[2019-06-13] MEDS ORDERED: ONDANSETRON PF 4 MG/2 ML VIAL. IV PRN (01:30)
--- NOTE | 2019-06-13 03:00 | NUR ---
The patient, ENOC DOTSNO, 74 y/o, F admitted by SANTANA NICHOLS MD, was given written information regarding hospital policies, unit procedures and contact persons. Valuables were checked and is planning on taking belongings home with him. is also supposed to bring in a list of current meds. Pt. states she takes 5 pills along with trujeo insulin, but has not been able to take most days with the nausea and vomiting. All questions answered and pt. made comfortable. Denies current needs. Will continue to monitor.
[2019-06-13 03:12] VITALS: BP 175/75
[2019-06-13] MEDS ORDERED: ALPR1TAB6 PO (03:16)
[2019-06-13] MEDS ORDERED: LISI-334 PO (03:16)
[2019-06-13 07:00] VITALS: BP 176/78
[2019-06-13] MEDS: ONDANSETRON PF 4 MG/2 ML VIAL. IVP PRN ×3 (07:46→21:40)
[2019-06-13] MEDS: METOPROLOL TART IMMED RELEASE 25 MG TABLET. PO SCH (10:00)
[2019-06-13] MEDS: GABAPENTIN 300 MG CAPSULE. PO SCH ×2 (10:00→21:00)
[2019-06-13] MEDS: buPROPion XL 150 MG TAB.ER.24H. PO SCH (10:00)
[2019-06-13] MEDS: ASPIRIN ENTERIC COATED 325 MG TABLET.DR. PO SCH (10:00)
[2019-06-13] MEDS: CITALOPRAM 20 MG TABLET. PO SCH (10:00)
[2019-06-13] MEDS: LISINOPRIL 20 MG TABLET PO SCH (10:00)
--- NOTE | 2019-06-13 10:19 | HP ---
ADMIT DATE: 06/13/2019 CHIEF COMPLAINT AND HISTORY OF PRESENT ILLNESS: This 74-year-old white female is followed in my office. The patient has been having vomiting over the last 2-3 months with at least a 30-pound weight loss according to her . She started off maybe vomiting 3 months ago and it has increased over the last 2-3 weeks. She is basically vomiting daily. She does not think it is related to eating, but he does thinks it happens more often after she eats. They relay a history of extreme stress due to grandchildren problems that they are dealing with at this point in time. She was seen in the Emergency Room, had an elevated lactic acid and admitted with nausea, vomiting, weight loss and lactic acidosis. PAST MEDICAL HISTORY: Remarkable for longstanding type 2 diabetes, depression, anxiety, coronary artery disease, hypertension, hyperlipidemia. PAST SURGICAL HISTORY: Multiple bypass surgeries. MEDICATIONS: Brought with the patient, listed on the computer. ALLERGIES: SHE IS ALLERGIC TO SULFA. SOCIAL HISTORY: She is nonsmoker, nondrinker, does not use drugs. , lives at home with her . FAMILY HISTORY: Noncontributory. REVIEW OF SYSTEMS: Remarkable for her denying any fevers or chills. There is no cough or shortness of breath. She denies any hematemesis or change in stools with this. She also denies any vertigo, dizziness that might be related to the nausea and vomiting. PHYSICAL EXAMINATION: GENERAL: She is well-developed, well-nourished female, lying in bed, in no acute distress. VITAL SIGNS: Remarkable for blood pressure elevated to 190 as a systolic, but she is not taking her medicines at home for some time due to the vomiting. HEAD, EYES, EARS, NOSE AND THROAT: Unremarkable. There is no icterus. NECK: Supple, without adenopathy or thyromegaly. CHEST: Clear to auscultation and percussion. HEART: Regular rate and rhythm without S3, S4 or murmur. ABDOMEN: Soft, nontender, without hepatosplenomegaly or mass. EXTREMITIES: Without cyanosis, clubbing or edema. NEUROLOGIC: Nonfocal. LABORATORY DATA: Initial laboratory includes a Chem panel ____ creatinine of 1.2, glucose of 219. Lactic acid was elevated at 2.3 on admission, is decreased to 1.2. CBC is essentially unremarkable. Imaging in the Emergency Room included abdomen and pelvis CT, which was unremarkable. IMPRESSION: 1. Pernicious vomiting with significant weight loss related to the same. 2. Lactic acidosis on admission. PLAN: GI consultation with negative workup in this regards ____. I suppose severe anxiety could be contributing in addition. SANTANA NICHOLS MD DR: KELLY/alexandra JOB#: [id number] / [id number]
[2019-06-13 11:00] VITALS: BP 196/66
[2019-06-13] MEDS ORDERED: IV RINGERS,LACTATED 1000ML 1,000 ML IV ONE (11:15)
--- NOTE | 2019-06-13 11:20 | NUR ---
SW following for discharge planning. Discussed with RN, pt is from home with . RN advised no SW needs at this time. SW will continue to follow should any discharge planning needs arise.
[2019-06-13] MEDS ORDERED: cloNIDine TTS-1 1 PATCH PATCH.TDWK TD SCH (11:30)
[2019-06-13] MEDS ORDERED: IV RINGERS,LACTATED 1000ML 1,000 ML IV SCH (11:55)
[2019-06-13] MEDS ORDERED: PROPOFOL 20 ML IV ONE (12:20)
[2019-06-13] MEDS ORDERED: LIDOCAINE 2% PF 5 ML VIAL. ONE (12:20)
--- NOTE | 2019-06-13 12:33 | PDOC2 ---
CONSULT Date of Consult Date of Consult DATE: 06/13/19 TIME: 12:31 Reason for Consult Reason for Consult: N/V with weight loss Past Medical History Cardiovascular: HTN, Hyperlipidemia GI: No pertinent hx Heme/Onc: No pertinent hx Hepatobiliary: No pertinent hx Psych: Anxiety, Depression Musculoskeletal: No pain Rheumatologic: No pertinent hx Infectious disease: No pertinent hx Renal/: No pertinent hx Endocrine: Diabetes Past Surgical History Past Surgical History: Family History Family History: Coronary Artery Disease, Diabetes, High Cholestrol, Hypertension Social History ALCOHOL: none Lives: with Family Domestic Violence: Neg Current Problem List Problem List Problems Medical Problems: (1) Intractable nausea and vomiting Status: Acute (2) Weight loss Status: Acute Current Medications Current Medications Current Medications Ondansetron HCl (Zofran) 4 mg 1X ONCE IV Last administered on 06/13/19at 00:15; Start 06/12/19 at 23:30; Stop 06/12/19 at 23:31; Status DC Sodium Chloride 1,000 ml @ 1,000 mls/hr 1X ONCE IV Last administered on 06/13/19at 00:15; Start 06/12/19 at 23:30; Stop 06/13/19 at 00:29; Status DC Iohexol (Omnipaque 300 Mg/ml) 60 ml 1X ONCE IV Last administered on 06/13/19at 00:58; Start 06/13/19 at 01:00; Stop 06/13/19 at 01:01; Status DC Info (CONTRAST GIVEN -- Rx MONITORING) 1 each PRN DAILY PRN MC SEE COMMENTS; Start 06/13/19 at 01:00; Stop 06/15/19 at 00:59 Ondansetron HCl (Zofran) 4 mg PRN Q8HRS PRN IV NAUSEA/VOMITING; Start 06/13/19 at 01:30; Stop 06/13/19 at 03:36; Status DC Ondansetron HCl (Zofran) 4 mg PRN Q6HRS PRN IVP NAUSEA/VOMITING Last administered on 06/13/19at 07:46; Start 06/13/19 at 03:45 Clonidine HCl (Catapres Tts-1) 1 patch WEEKLY TD Last administered on 06/13/19at 11:19; Start 06/13/19 at 11:30 Alprazolam (Xanax) 1 mg PRN TID PRN PO ANXIETY; Start 06/13/19 at 09:15 Aspirin (Ecotrin) 325 mg DAILYWBKFT PO ; Start 06/13/19 at 10:00 Bupropion HCl (Wellbutrin Xl) 150 mg DAILYWBKFT PO ; Start 06/13/19 at 10:00 Lisinopril (Prinivil) 20 mg DAILY PO ; Start 06/13/19 at 10:00 Metoprolol Tartrate (Lopressor) 25 mg DAILY PO ; Start 06/13/19 at 10:00 Simvastatin (Zocor) 40 mg HS PO ; Start 06/13/19 at 21:00 Citalopram Hydrobromide (CeleXA) 40 mg DAILY PO ; Start 06/13/19 at 10:00 Gabapentin (Neurontin) 600 mg BID PO ; Start 06/13/19 at 10:00 Quetiapine Fumarate (SEROquel) 50 mg QHS PO ; Start 06/13/19 at 21:00 Ringer's Solution 1,000 ml @ 75 mls/hr 1X ONCE IV Last administered on 06/13/19at 11:53; Start 06/13/19 at 11:15; Stop 06/14/19 at 00:34 Ringer's Solution 1,000 ml @ 50 mls/hr Q20H IV ; Start 06/13/19 at 11:55; Stop 06/13/19 at 23:54 Propofol 40 ml @ As Directed STK-MED ONCE IV ; Start 06/13/19 at 12:20; Stop 06/13/19 at 12:20; Status DC Lidocaine HCl (Lidocaine Pf 2% Vial) 5 ml STK-MED ONCE .ROUTE ; Start 06/13/19 at 12:20; Stop 06/13/19 at 12:20; Status DC Active Scripts Active Aspirin Ec (Aspirin) 325 Mg Tablet.dr 325 Mg PO DAILYWBKFT 30 Days Reported Alprazolam 1 Mg Tablet 1 Tab PO TID PRN Lisinopril 20 Mg Tablet 20 Mg PO DAILY Toujeo Solostar (Insulin Glargine,Hum.rec.anlog) 300 Unit/1 Ml Insuln.pen 80 Unit SQ DAILY Seroquel (Quetiapine Fumarate) 50 Mg Tablet 1 Tab PO QHS Bupropion Xl (Bupropion Hcl) 150 Mg Tab.er.24h 1 Tab PO DAILYWBKFT Citalopram Hbr (Citalopram Hydrobromide) 40 Mg Tablet 40 Mg PO DAILY Metoprolol Tartrate 25 Mg Tablet 25 Mg PO DAILY Gabapentin 600 Mg Tablet 600 Mg PO BID Simvastatin 40 Mg Tablet 40 Mg PO HS Allergies Allergies: Coded Allergies: Sulfa (Sulfonamide Antibiotics) (Verified Allergy, Intermediate, Rash, 1 08/14/18) Vitals VITALS Vital Signs Date Time Temp Pulse Resp B/P (MAP) Pulse Ox O2 Delivery O2 Flow Rate FiO2 06/13/19 11:48 97.0 61 20 96 97.0 06/13/19 11:44 Room Air 06/13/19 07:00 176/78 (110) Labs Labs Laboratory Tests Test 06/12/19 23:12 06/12/19 23:30 06/13/19 02:30 06/13/19 08:18 Glucose (Fingerstick) 192 mg/dL (70-99) 171 mg/dL (70-99) White Blood Count 8.1 x10^3/uL (4.0-11.0) Red Blood Count 4.79 x10^6/uL (3.50-5.40) Hemoglobin 14.9 g/dL (12.0-15.5) Hematocrit 43.4 % (36.0-47.0) Mean Corpuscular Volume 91 fL (79-100) Mean Corpuscular Hemoglobin 31 pg (25-35) Mean Corpuscular Hemoglobin Concent 34 g/dL (31-37) Red Cell Distribution Width 13.3 % (11.5-14.5) Platelet Count 197 x10^3/uL (140-400) Neutrophils (%) (Auto) 83 % (31-73) Lymphocytes (%) (Auto) 13 % (24-48) Monocytes (%) (Auto) 4 % (0-9) Eosinophils (%) (Auto) 0 % (0-3) Basophils (%) (Auto) 1 % (0-3) Neutrophils # (Auto) 6.7 x10^3/uL (1.8-7.7) Lymphocytes # (Auto) 1.1 x10^3/uL (1.0-4.8) Monocytes # (Auto) 0.3 x10^3/uL (0.0-1.1) Eosinophils # (Auto) 0.0 x10^3/uL (0.0-0.7) Basophils # (Auto) 0.0 x10^3/uL (0.0-0.2) Sodium Level 138 mmol/L (136-145) Potassium Level 3.7 mmol/L (3.5-5.1) Chloride Level 96 mmol/L (98-107) Carbon Dioxide Level 31 mmol/L (21-32) Anion Gap 11 (6-14) Blood Urea Nitrogen 14 mg/dL (7-20) Creatinine 1.2 mg/dL (0.6-1.0) Estimated GFR (Cockcroft-Gault) 44.0 BUN/Creatinine Ratio 12 (6-20) Glucose Level 219 mg/dL (70-99) Lactic Acid Level 2.3 mmol/L (0.4-2.0) 1.2 mmol/L (0.4-2.0) Calcium Level 9.8 mg/dL (8.5-10.1) Total Bilirubin 0.9 mg/dL (0.2-1.0) Aspartate Amino Transf (AST/SGOT) 20 U/L (15-37) Alanine Aminotransferase (ALT/SGPT) 25 U/L (14-59) Alkaline Phosphatase 92 U/L (46-116) Troponin I Quantitative < 0.017 ng/mL (0.000-0.055) Total Protein 8.3 g/dL (6.4-8.2) Albumin 4.3 g/dL (3.4-5.0) Albumin/Globulin Ratio 1.1 (1.0-1.7) Lipase 161 U/L (73-393) Laboratory Tests Test 06/12/19 23:12 06/12/19 23:30 06/13/19 02:30 06/13/19 08:18 Glucose (Fingerstick) 192 mg/dL (70-99) 171 mg/dL (70-99) White Blood Count 8.1 x10^3/uL (4.0-11.0) Red Blood Count 4.79 x10^6/uL (3.50-5.40) Hemoglobin 14.9 g/dL (12.0-15.5) Hematocrit 43.4 % (36.0-47.0) Mean Corpuscular Volume 91 fL (79-100) Mean Corpuscular Hemoglobin 31 pg (25-35) Mean Corpuscular Hemoglobin Concent 34 g/dL (31-37) Red Cell Distribution Width 13.3 % (11.5-14.5) Platelet Count 197 x10^3/uL (140-400) Neutrophils (%) (Auto) 83 % (31-73) Lymphocytes (%) (Auto) 13 % (24-48) Monocytes (%) (Auto) 4 % (0-9) Eosinophils (%) (Auto) 0 % (0-3) Basophils (%) (Auto) 1 % (0-3) Neutrophils # (Auto) 6.7 x10^3/uL (1.8-7.7) Lymphocytes # (Auto) 1.1 x10^3/uL (1.0-4.8) Monocytes # (Auto) 0.3 x10^3/uL (0.0-1.1) Eosinophils # (Auto) 0.0 x10^3/uL (0.0-0.7) Basophils # (Auto) 0.0 x10^3/uL (0.0-0.2) Sodium Level 138 mmol/L (136-145) Potassium Level 3.7 mmol/L (3.5-5.1) Chloride Level 96 mmol/L (98-107) Carbon Dioxide Level 31 mmol/L (21-32) Anion Gap 11 (6-14) Blood Urea Nitrogen 14 mg/dL (7-20) Creatinine 1.2 mg/dL (0.6-1.0) Estimated GFR (Cockcroft-Gault) 44.0 BUN/Creatinine Ratio 12 (6-20) Glucose Level 219 mg/dL (70-99) Lactic Acid Level 2.3 mmol/L (0.4-2.0) 1.2 mmol/L (0.4-2.0) Calcium Level 9.8 mg/dL (8.5-10.1) Total Bilirubin 0.9 mg/dL (0.2-1.0) Aspartate Amino Transf (AST/SGOT) 20 U/L (15-37) Alanine Aminotransferase (ALT/SGPT) 25 U/L (14-59) Alkaline Phosphatase 92 U/L (46-116) Troponin I Quantitative < 0.017 ng/mL (0.000-0.055) Total Protein 8.3 g/dL (6.4-8.2) Albumin 4.3 g/dL (3.4-5.0) Albumin/Globulin Ratio 1.1 (1.0-1.7) Lipase 161 U/L (73-393) Assessment/Plan Assessment/Plan n/v-with thirty pounds weight losss and long standing DM, gastroparesis leaqds differential. PUD, malignancy, gastric outlet obstruction, and/or GB disease possible as well. Plan EGD to further assess if unrevealing, then US GB and GES to further assess Full note dictated NAYELY PLATA MD Jun 13, 2019 12:33
[2019-06-13] MEDS ORDERED: hydrALAZINE 20 MG/ML VIAL. IVP ONE ×2 (12:45)
--- NOTE | 2019-06-13 13:01 | PDOC4 ---
Operative Note Operative Note EGD Meds propofol per anesthesia Pre-op dx n/v wt loss Post-op dx non-erosive gastritis Plan US GB and GES to further assess NAYELY PLATA MD Jun 13, 2019 13:01
[2019-06-13] MEDS ORDERED: LABETALOL 20 MG/4 ML DISP.SYRIN. IVP PRN (14:30)
[2019-06-13 15:00] VITALS: BP 158/59
[2019-06-13] MEDS ORDERED: hydrALAZINE 20 MG/ML VIAL. IVP PRN (15:00)
[2019-06-13] MEDS: PROCHLORPERAZINE 10 MG/2 ML VIAL. IV PRN (16:10)
[2019-06-13] MEDS: IV NORMAL SALINE 1000ML BAG 1,000 ML IV SCH ×2 (17:00→21:00)
[2019-06-13 19:00] VITALS: BP 182/75
[2019-06-13] MEDS: SIMVASTATIN 40 MG TABLET. PO SCH (21:00)
[2019-06-13] MEDS: QUEtiapine 25 MG TABLET. PO SCH (21:00)
[2019-06-13] MEDS: ACETAMINOPHEN 325 MG TABLET. PO PRN (21:40)
[2019-06-13] MEDS ORDERED: ACETAMINOPHEN 650 MG SUPP.RECT. PR PRN (21:45)
[2019-06-13 23:00] VITALS: BP 177/78
[2019-06-14] VITALS (7 sets, daily range): BP systolic 123–179; BP diastolic 34–61
--- NOTE | 2019-06-14 01:27 | CONS ---
DATE OF CONSULTATION: 06/13/2019 GI CONSULTATION REASON FOR CONSULTATION: Nausea, vomiting, weight loss. HISTORY OF PRESENT ILLNESS: This is a 74-year-old female with past medical history significant for longstanding diabetes, hypertension, hyperlipidemia, coronary artery disease status post bypass surgery, depression, anxiety, is seen with 30-pound weight loss, has occurred over the past 3 months. She vomits on a daily basis. There is no change with meals. No family history of peptic ulcer disease, gallbladder disease is noted. The patient does not use NSAIDs as risk factors for peptic ulcer disease. She has not undergone upper endoscopy and/or colonoscopy. CT scan was unrevealing for obstruction on admission. For continued symptoms, she requests additional evaluation. PAST MEDICAL HISTORY: Diabetes type 2, depression, anxiety, coronary artery disease, hypertension, hyperlipidemia, status post bypass surgery. ALLERGIES: SULFA. MEDICATIONS: Include Seroquel, gabapentin, Celexa, Lopressor, Prinivil, ____, Ecotrin, Xanax, and Zofran. SOCIAL HISTORY: She does not drink or smoke at this time. FAMILY HISTORY: Noncontributory. REVIEW OF SYSTEMS: Per records. PHYSICAL EXAMINATION: GENERAL: Reveals a well-nourished, well-developed female who is alert, cooperative, in mild distress. VITAL SIGNS: Temperature is 97, pulse 61, respirations 20, blood pressure is 176/78. HEENT: Reveals normocephalic, atraumatic head. Pupils and extraocular muscles are not tested. Sclerae anicteric. NECK: Supple. LUNGS: Clear. CARDIOVASCULAR: Reveals an S1, S2 without S3, S4 or appreciable murmur. Well-healed midline sternal incision is noted from previous bypass surgery. ABDOMEN: Reveals a soft abdomen, normal bowel sounds, with epigastric tenderness to deep palpation without appreciable hepatosplenomegaly. EXTREMITIES: Reveals no cyanosis, clubbing or edema. IMPRESSION: Nausea and vomiting with weight loss, etiology is to be determined. Differential includes malignancy of stomach or colon, peptic ulcer disease, gastric outlet obstruction, gastroparesis. Therefore, recommend upper endoscopy to further assess. If this is unrevealing, ultrasound of the gallbladder and a nuclear medicine gastric emptying study would be pursued. NAYELY PLATA MD DR: STEPHANIE/alexandra JOB#: [id number] / [id number] SANTANA Sterling MD
[2019-06-14] MEDS: ONDANSETRON PF 4 MG/2 ML VIAL. IVP PRN (04:31)
[2019-06-14] MEDS: PROCHLORPERAZINE 10 MG/2 ML VIAL. IV PRN (05:42)
--- NOTE | 2019-06-14 08:36 | RAD ---
EXAM: ABDOMINAL ULTRASOUND. HISTORY: Nausea/vomiting. COMPARISON: 06/13/2019. FINDINGS: Sonographic evaluation of the abdomen was performed. The liver appears normal in parenchymal echotexture. There are no focal lesions. The spleen measures 9.6 cm. The gallbladder is unremarkable without evidence of stones, wall thickening or pericholecystic fluid. There is no sonographic Oropeza sign. The common duct measures 5 mm. The visualized portions of the head and body of the pancreas reveal no abnormality. The right kidney measures 10.3 cm. Cortical thickness and echogenicity are preserved. There is no hydronephrosis. The left kidney measures 9.7 cm. Cortical thickness and echogenicity are preserved. There is no hydronephrosis. A focus of bowel wall thickening is noted along a nondistended bowel loop in the midline. The visualized portions of the abdominal aorta and inferior vena cava are grossly patent and normal in caliber. IMPRESSION: 1. A focus of bowel wall thickening is noted in the midline, which may reflect only luminal decompression or enteritis. Correlate clinically. Electronically signed by: Rita Whiting MD (06/14/2019 8:33 AM) [facility]
--- NOTE | 2019-06-14 09:25 | PDOC ---
GENERAL General: vss and afebrile. blood pressures better. better night without dry heaves. suga rs decent. egd noted with non erosive gastritis. GET and US abdomen for today. chest clear, heart regular, abdomen benign. today's story is that dry heaves when rolled over in bed for US this am and when up to bathroom. with po intake issues will add scopolamine patch trial to make sure not labrinthine in nature. VITAL SIGNS/I&O Vital Signs/I&O: Vital Signs Date Time Temp Pulse Resp B/P (MAP) Pulse Ox O2 Delivery O2 Flow Rate FiO2 06/14/19 07:00 97.9 72 18 146/58 (87) 90 Room Air 97.9 06/13/19 12:56 4 I & O 06/13/19 06/13/19 06/14/19 15:00 23:00 07:00 Intake Total 800 ml 50 ml 25 ml Balance 800 ml 50 ml 25 ml ALLERGIES Allergies: Allergies Coded Allergies Type Severity Reaction Last Updated Verified Sulfa (Sulfonamide Antibiotics) Allergy Intermediate Rash 06/13/19 Yes MEDS Medications: Current Medications Medications (Trade) Dose Ordered Sig/Isidro Route PRN Reason Start Time Stop Time Status Last Admin Dose Admin Clonidine HCl (Catapres Tts-1) 1 patch WEEKLY TD 06/13/19 11:30 06/13/19 11:19 Ringer's Solution 1,000 ml @ 75 mls/hr 1X ONCE IV 06/13/19 11:15 06/14/19 00:34 DC 06/13/19 11:53 Prochlorperazine Edisylate (Compazine) 5 mg PRN Q6HRS PRN IV NAUSEA/VOMITING 06/13/19 14:30 06/14/19 05:42 Hydralazine HCl (Apresoline Inj) 10 mg PRN Q4HRS PRN IVP ELEVATED BP, SEE COMMENTS 06/13/19 15:00 06/14/19 04:32 Sodium Chloride 1,000 ml @ 75 mls/hr [id number] IV 06/13/19 17:00 06/13/19 21:00 Acetaminophen (Tylenol) 650 mg PRN Q6HRS PRN PO HEADACHE 06/13/19 21:45 06/13/19 21:40 LAB Lab: Laboratory Tests Test 06/13/19 17:20 12/26/19 20:17 06/14/19 07:54 Glucose (Fingerstick) 173 mg/dL (70-99) H 182 mg/dL (70-99) H 151 mg/dL (70-99) H SANTANA NICHOLS MD Jun 14, 2019 09:25
[2019-06-14] MEDS ORDERED: SCOPOLAMINE 1.5MG PATCH. TD SCH (10:00)
[2019-06-14 10:01] LABS: BASO % 1 % (0-3); EOS % 0 % (0-3); HEMATOCRIT 37.9 % (36.0-47.0); LYMPH # 1.5 x10^3/uL (1.0-4.8); LYMPH % 24 % (24-48); MEAN CORPUSCULAR HEMOGLOBIN 31 pg (25-35); MEAN CORPUSCULAR HGB CONC 34 g/dL (31-37); MEAN CORPUSCULAR VOLUME 91 fL (79-100); MONO # 0.5 x10^3/uL (0.0-1.1); MONO % 8 % (0-9); NEUT # 4.2 x10^3/uL (1.8-7.7); NEUT % 68 % (31-73); PLATELET COUNT 155 x10^3/uL (140-400); RED BLOOD COUNT 4.15 x10^6/uL (3.50-5.40); RED CELL DISTRIBUTION WIDTH 13.4 % (11.5-14.5); WHITE BLOOD COUNT 6.3 x10^3/uL (4.0-11.0)
--- NOTE | 2019-06-14 10:10 | PDOC ---
Subjective: Subjective: Could not tolerate eggs for GES but does think she feels better overall. Has stooled. No abd pain. Objective: Objective: Reviewed Dr. Mireles's note - trying scopolamine. Vital Signs: Vital Signs Date Time Temp Pulse Resp B/P (MAP) Pulse Ox O2 Delivery O2 Flow Rate FiO2 06/14/19 07:00 97.9 72 18 146/58 (87) 90 Room Air 97.9 06/13/19 12:56 4 Labs: Laboratory Tests Test 06/13/19 17:20 06/13/19 20:17 06/14/19 07:54 06/14/19 09:40 Glucose (Fingerstick) 173 mg/dL 182 mg/dL 151 mg/dL White Blood Count 6.3 x10^3/uL Red Blood Count 4.15 x10^6/uL Hemoglobin 13.0 g/dL Hematocrit 37.9 % Mean Corpuscular Volume 91 fL Mean Corpuscular Hemoglobin 31 pg Mean Corpuscular Hemoglobin Concent 34 g/dL Red Cell Distribution Width 13.4 % Platelet Count 155 x10^3/uL Neutrophils (%) (Auto) 68 % Lymphocytes (%) (Auto) 24 % Monocytes (%) (Auto) 8 % Eosinophils (%) (Auto) 0 % Basophils (%) (Auto) 1 % Neutrophils # (Auto) 4.2 x10^3/uL Lymphocytes # (Auto) 1.5 x10^3/uL Monocytes # (Auto) 0.5 x10^3/uL Eosinophils # (Auto) 0.0 x10^3/uL Basophils # (Auto) 0.0 x10^3/uL Imaging: Abd US FINDINGS: Sonographic evaluation of the abdomen was performed. The liver appears normal in parenchymal echotexture. There are no focal lesions. The spleen measures 9.6 cm. The gallbladder is unremarkable without evidence of stones, wall thickening or pericholecystic fluid. There is no sonographic Oropeza sign. The common duct measures 5 mm. The visualized portions of the head and body of t he pancreas reveal no abnormality. The right kidney measures 10.3 cm. Cortical thickness and echogenicity are preserved. There is no hydronephrosis. The left kidney measures 9.7 cm. Cortical thickness and echogenicity are preserved. There is no hydronephrosis. A focus of bowel wall thickening is noted along a nondistended bowel loop in the midline. The visualized portions of the abdominal aorta and inferior vena cava are grossly patent and normal in caliber. IMPRESSION: 1. A focus of bowel wall thickening is noted in the midline, which may reflect only luminal decompression or enteritis. Correlate clinically. EGD non-erosive gastritis CT A/P FINDINGS: Heart size is normal. No pericardial strandy opacities at the dependent portion the lung bases likely representing atelectasis. No pleural effusion. The left hepatic lobe of the liver is atrophic with a hypoattenuating partially calcified lesion underneath the left hemidiaphragm this is unchanged compared to the prior CT in 2017. Spleen, pancreas, gallbladder and adrenals are unremarkable. A straight symmetric enhancement. No perinephric inflammation or hydronephrosis. No renal or ureteral calculi are identified. Bladder is decompressed not well evaluated. Uterus is not enlarged. No abnormal adnexal mass. Large and small bowel are unremarkable. Appendix is not identified. No free intra-abdominal air or fluid. Abdominal aorta has a normal course and caliber. Abdominal vasculature is patent. No enlarged intra-abdominal lymph nodes are identified. Bilateral pars interarticularis defect at L5 with grade 1 anterolisthesis of L5 on S1. No suspicious osseous lesions or acute fractures. IMPRESSION: 1. No acute process identified within the abdomen or pelvis. Normal appearance of the bowel without evidence for obstruction. 2. Chronic findings as described above PE: GEN: NAD - laying on left side - emesis basin w/ some saliva and small bits of egg LUNGS: CTAB HEART: RRR ABD: S/ND/NT NEURO/PSYCH: A & O 3 A/P: N/v, weight loss HTN, DM -- Normal GB on US, didn't tolerate GES. Try clears. Change to PO PPI when reliably eating. Will review next step with Dr. Shrestha. KRISHNA BRYAN Jun 14, 2019 10:10
[2019-06-14 10:40] LABS: ALBUMIN 3.6 g/dL (3.4-5.0); CALCIUM 8.9 mg/dL (8.5-10.1); CREATININE 1.2 mg/dL (0.6-1.0); POTASSIUM 3.2 mmol/L (3.5-5.1); TOTAL BILIRUBIN 0.8 mg/dL (0.2-1.0); TOTAL PROTEIN 7.1 g/dL (6.4-8.2)
[2019-06-14] MEDS: ASPIRIN ENTERIC COATED 325 MG TABLET.DR. PO SCH (11:10)
[2019-06-14] MEDS: buPROPion XL 150 MG TAB.ER.24H. PO SCH (11:10)
[2019-06-14] MEDS: LISINOPRIL 20 MG TABLET PO SCH (11:10)
[2019-06-14] MEDS: METOPROLOL TART IMMED RELEASE 25 MG TABLET. PO SCH (11:10)
[2019-06-14] MEDS: CITALOPRAM 20 MG TABLET. PO SCH (11:11)
[2019-06-14] MEDS: GABAPENTIN 300 MG CAPSULE. PO SCH ×2 (11:11→21:21)
[2019-06-14] MEDS: PANTOPRAZOLE IV PUSH 40 MG VIAL. IVP SCH (11:12)
[2019-06-14] MEDS: IV NORMAL SALINE 1000ML BAG 1,000 ML IV SCH (11:35)
[2019-06-14] MEDS: QUEtiapine 25 MG TABLET. PO SCH (21:00)
[2019-06-14] MEDS: ALPRAZolam 1 MG TABLET PO PRN (21:21)
[2019-06-14] MEDS: SIMVASTATIN 40 MG TABLET. PO SCH (21:21)
[2019-06-15 03:00] VITALS: BP 113/50
[2019-06-15 07:00] VITALS: BP 133/46
[2019-06-15] MEDS: buPROPion XL 150 MG TAB.ER.24H. PO SCH (08:37)
[2019-06-15] MEDS: ASPIRIN ENTERIC COATED 325 MG TABLET.DR. PO SCH (08:40)
[2019-06-15] MEDS: PANTOPRAZOLE IV PUSH 40 MG VIAL. IVP SCH (08:41)
[2019-06-15] MEDS: GABAPENTIN 300 MG CAPSULE. PO SCH ×2 (08:41→21:07)
[2019-06-15] MEDS: LISINOPRIL 20 MG TABLET PO SCH (08:41)
[2019-06-15] MEDS: METOPROLOL TART IMMED RELEASE 25 MG TABLET. PO SCH (08:41)
[2019-06-15] MEDS: CITALOPRAM 20 MG TABLET. PO SCH (08:42)
[2019-06-15 11:00] VITALS: BP 138/84
--- NOTE | 2019-06-15 12:40 | PDOC ---
Provider Note Provider Note feels less nauseous , has eaten- vss, no temp- labs ok- feel family stress is a factor and she agrees- will dc iv, hold asa a few days , po protonix- , follow SHAI MEAD MD Jun 15, 2019 12:40
[2019-06-15 15:00] VITALS: BP 151/52
[2019-06-15] MEDS: ALPRAZolam 1 MG TABLET PO PRN ×2 (18:17→21:10)
[2019-06-15] MEDS: ACETAMINOPHEN 325 MG TABLET. PO PRN (18:17)
[2019-06-15 19:15] VITALS: BP 130/64
[2019-06-15] MEDS: QUEtiapine 25 MG TABLET. PO SCH (21:00)
[2019-06-15] MEDS: SIMVASTATIN 40 MG TABLET. PO SCH (21:07)
[2019-06-15 22:54] VITALS: BP 105/48
[2019-06-16 03:33] VITALS: BP 115/52
[2019-06-16 07:00] VITALS: BP 131/84
[2019-06-16] MEDS ORDERED: PANTOPRAZOLE 40 MG TABLET.DR. PO SCH (07:30)
[2019-06-16] MEDS: GABAPENTIN 300 MG CAPSULE. PO SCH (08:46)
[2019-06-16] MEDS: buPROPion XL 150 MG TAB.ER.24H. PO SCH (08:46)
[2019-06-16] MEDS: LISINOPRIL 20 MG TABLET PO SCH (08:46)
[2019-06-16] MEDS: METOPROLOL TART IMMED RELEASE 25 MG TABLET. PO SCH (08:47)
[2019-06-16] MEDS: CITALOPRAM 20 MG TABLET. PO SCH (08:47)
[2019-06-16 11:00] VITALS: BP 134/54
[2019-06-16] MEDS ORDERED: INSULIN GLARGINE SYRINGE. SQ SCH (11:00)
--- NOTE | 2019-06-16 11:13 | PDOC ---
Provider Note Provider Note [id number] SHAI MEAD MD Jun 16, 2019 11:13
--- NOTE | 2019-06-16 17:39 | DS ---
DATE OF DISCHARGE: 06/16/2019 HOSPITAL SUMMARY: The patient came in with intractable vomiting in a stressful situation in the home setting. CBC and chemistry profile are unremarkable. Gallbladder sonogram and CT scan of the abdomen were unremarkable as well. She was given IV and then oral Protonix, and aspirin was held and she seemed to be improving and is able to eat and drink and be comfortable to be followed as an outpatient at this point. FINAL DIAGNOSIS: Nausea and vomiting, likely secondary to acute on chronic gastritis. OPERATIONS, PROCEDURES, COMPLICATIONS: None. CONSULTATIONS: Dr. Shrestha. DISPOSITION: We will add omeprazole 40 mg daily as called [facility] on . Hold aspirin for 2 more days and resume 81 mg daily. Rest of home meds remains the same. Will see Dr. Mireles's office in 1 week for medicine reconciliation. Complete tobacco avoidance, low dose amount of caffeine, stomach irritants and office followup as scheduled. SHAI MEAD MD DR: DEREK/alexandra JOB#: [id number] / [id number]
== END 2019-06-16 12:45 | disposition home or self-care (01) | DRG 392 ==
LOC: ER 22:43 → 4 NORTH 06-13 01:25
PROVIDERS: ADMIT Family Medicine; ATTEND Family Medicine
PROC: 0DJ08ZZ Inspection of Upper Intestinal Tract, Via Natural or Artificial Opening Endoscopic (ICD-10-PCS; principal; 2019-06-13 12:30)
DX: K29.00 Acute gastritis without bleeding (principal); E87.2 Acidosis; E78.00 Pure hypercholesterolemia, unspecified; E78.5 Hyperlipidemia, unspecified; I10 Essential (primary) hypertension; I25.10 Atherosclerotic heart disease of native coronary artery without angina pectoris; K29.50 Unspecified chronic gastritis without bleeding; Z82.49 Family history of ischemic heart disease and other diseases of the circulatory system; Z83.3 Family history of diabetes mellitus; Z95.1 Presence of aortocoronary bypass graft; F32.9 Major depressive disorder, single episode, unspecified; F41.9 Anxiety disorder, unspecified
CPT/HCPCS: 36415; 43235; 74177; 76700; 80053; 82962; 83605; 83690; 84484; 85025; 96361; 96374; C9113; J0360; J0780; J1815; J2001; J2405; J2704; J7030; J7120; Q9967; 97116; 97530; 99285-25; G0378

== ENCOUNTER 2020-12-30 07:07 | Outpatient (CLI) | payer OTHER, MEDICARE ==
[~2020-12-30] VITALS: Ht 167.6 cm; Wt 70.5 kg
[2020-12-30] VITALS (12 sets, daily range): BP systolic 132–160; BP diastolic 53–72
[~2020-12-30 07:07] MED LIST changes: +ASPI-630 PO; +BUPR150T21 PO; -BUPR150T6 PO; +ESCI10TA90 PO; +FURO-68 PO; +GEMF600T20 PO; -GEMF600T8 PO; +IRBE150T21 PO; +LISI10TA16 PO; -LISI10TA2 PO; -LISI1TAB19 PO; +LISI1TAB37 PO; +LISI20TA18 PO; +ONDA-84 PO; -ONDA4TAB11 PO; -OXYC-411 PO; +OXYC1TAB20 PO; +PIOG45TA62 PO; +POTA10TA12 PO; +SIMV80TA17 PO
[2020-12-30] MEDS ORDERED: HYDR-2761 PO (08:14)
[2020-12-30] MEDS ORDERED: HEPARIN for ARTERIAL LINE 1,500 ML ONE (08:15)
[2020-12-30] MEDS ORDERED: LIDOCAINE WITH 8.4% SOD BICARB 3 ML DISP.SYRIN. ONE (08:15)
[2020-12-30] MEDS ORDERED: IODIXANOL 320 MG/ML 100 ML VIAL. ONE (08:15)
[2020-12-30] MEDS ORDERED: HEPARIN for IV BOLUS 10,000 UNIT/10 ML VIAL. ONE (08:21)
[2020-12-30] MEDS ORDERED: MIDAZOLAM HCL/PF 5 MG/5 ML VIAL. ONE (08:21)
[2020-12-30] MEDS ORDERED: fentaNYL PF VIAL 100 MCG/2 ML VIAL ONE (08:21)
[2020-12-30] MEDS ORDERED: LIDOCAINE WITH 8.4% SOD BICARB 3 ML DISP.SYRIN. IJ ONE (09:00)
[2020-12-30] MEDS ORDERED: fentaNYL PF VIAL 100 MCG/2 ML VIAL IV ONE (09:00)
[2020-12-30] MEDS ORDERED: IODIXANOL 320 MG/ML 100 ML VIAL. IART ONE (09:00)
[2020-12-30] MEDS ORDERED: MIDAZOLAM HCL/PF 5 MG/5 ML VIAL. IV ONE (09:00)
[2020-12-30] MEDS ORDERED: CONTRAST GIVEN. MC PRN (09:15)
[2020-12-30] MEDS ORDERED: HEPARIN for IV BOLUS 10,000 UNIT/10 ML VIAL. IV ONE (09:30)
[2020-12-30] MEDS ORDERED: hydrALAZINE 20 MG/ML VIAL. ONE (09:41)
[2020-12-30] MEDS ORDERED: METOPROLOL TART IMMED RELEASE 25 MG TABLET. PO ONE (10:00)
[2020-12-30] MEDS ORDERED: CLOPIDOGREL BISULFATE 75 MG TABLET PO ONE (10:00)
[2020-12-30] MEDS ORDERED: hydrALAZINE 20 MG/ML VIAL. IVP ONE (10:00)
[2020-12-30] MEDS ORDERED: CLOPIDOGREL BISULFATE 75 MG TABLET ONE (10:22)
[2020-12-30] MEDS ORDERED: CLOP75TA PO (10:56)
--- NOTE | 2020-12-30 11:05 | NUR ---
Patient's stated that he gave the patient her home medication (Hydrocodone 5/325mg), 1 pill because she is having a lot of leg pain. Patient is eating her lunch at this time and right femoral artery site is soft with no bleeding on dressing.
--- NOTE | 2020-12-30 11:44 | NUR ---
Patient's came to nurse's station to let us know that his was having a lot of pain in her left leg. Pulses checked in left foot and both were strong with doppler and extremity is warm to touch. Patient states that pain is in her left hip and lower leg. Discussed with patient and her that it could be reperfusion pain since she is now getting blood flow to that area. Dr. Starkey notified of this.
[2020-12-30] MEDS ORDERED: oxyCODONE/APAP 5/325 1 TAB TABLET PO ONE (12:00)
--- NOTE | 2020-12-30 13:05 | NUR ---
Discharge Note: ENOC DOTSON Discharge instructions and discharge home medications reviewed with Patient and a copy given. All questions have been answered and understanding verbalized. The following instructions and handouts were given: groin site care and adult moderate sedation Discontinued lines and drains: Peripheral IV intact. Patient discharged to Home or Self Care withSpousevia Wheelchair
--- NOTE | 2020-12-31 08:28 | RAD ---
12/30/2020 1. Abdominal aortogram 2. Pelvic angiogram 3. Left lower extremity angiography 4. angioplasty of the left superficial femoral artery, left popliteal artery, and left tibial peronea l trunk Indication: 75-year-old female with left lower extremity pain, and history of slowly healing flexion and, currently healed. COMPARISON STUDY: Left lower extremity arterial duplex ultrasound December 12, 2020 Discussion: Consent: The procedure was explained in its entirety to the patient or the patients desig nated underwriting account representative by a member of the treatment team, including a discussion of the risks, benefits and commonly accepted alternatives to the procedure, as well as the expected consequences of no ther apy whatsoever. Discussion of the risks included, but was not limited to, those that are most frequ ent and those that are rare but possibly severe or life-threatening, as well as the possibility of un foreseen complications. The patient was brought to the fluoroscopy suite and placed in the supine position. A timeout procedu re was performed. The right groin was prepped and draped using maximum sterile technique, including the use of: Current guideline approved cutaneous antisepsis, a large sterile sheet to establish a sterile field. Additio shonna the bias machine operator helper wore a hat, mask, sterile gloves, a sterile gown during the procedure as well as p racticed acceptable hand hygiene prior to placing the line. Lidocaine was used for local anesthesia. Ultrasound evaluation demonstrates the right common femoral artery to be patent. The artery was acces sed using direct ultrasound guidance and micropuncture technique. Reference ultrasound images were [facility]. 5 [place] vascular sheath was placed. An Omni Flush catheter was advanced to the abdominal aorta. An a bdominal aortogram was obtained. There is gradual tapering of the abdominal aorta without evidence of flow-limiting stenosis. Diffuse irregularity suggestive of atherosclerotic vascular disease is noted . The catheter was repositioned in the inferior abdominal aorta and pelvic angiography was performed demonstrating no hemodynamically significant aortoiliac stenosis. The catheter was positioned in the left common femoral artery and angiography performed demonstrating a patent common femoral artery and profunda artery. The proximalmost SFA demonstrates irregularity b ut is patent without flow limiting stenosis. The catheter was repositioned in the superficial femoral artery. Left lower extremity angiography was continued demonstrating multiple irregular approximately 50% stenoses of the distal SFA and proximal popliteal artery. The below-knee popliteal artery is patent. There is a 50% stenosis of the tibial p eroneal trunk. There is single vessel runoff to the left foot via the peroneal artery which supplies collaterals to the foot however the dorsalis pedis lateral plantar artery are somewhat poorly visuali zed being supplied by small collaterals. Some hyperemia involving the posterior distal leg noted. The anterior tibial artery and posterior tibial artery demonstrate long segment chronic total occlusion without acceptable distal target for revascularization. Given was felt to be her symptomatic claudica tion as well as suboptimal wound healing. Superficial femoral artery, [id number] popliteal artery , and tibial peroneal trunk treated with balloon angioplasty to 5 mm, 5 mm, and 3 mm respectively. Th is results in improved morphology and flow. Angiogram of the right lower extremity was performed through the right common femoral sheath. The pun cture site is adequate in the mid common femoral artery. The right SFA demonstrates a high-grade dist al stenosis in the adductor canal. There is irregularity of popliteal artery without evidence of flow limiting stenosis. The peroneal artery is again the dominant blood supply to the right foot. The pos terior tibial artery demonstrates multifocal high-grade stenosis but does contribute significant flow to the lateral plantar artery in the foot. The anterior tibial artery on the right is chronically oc cluded without significant reconstitution of the proximal dorsalis pedis. A mixed device was deployed as the sheath was removed. Manual pressure was held. Sterile dressings we re applied. No immediate complications were identified. Total fluoroscopy time:9.3 min Dose area product: 213 Gycm2 Sedation: The procedure was performed under conscious sedation including continuous cardiopulmonary m onitoring via a dedicated sedation nurse. [id number] sedation time: 93 Min IMPRESSION: 1. Severe diffuse peripheral vascular disease 2. No hemodynamically significant aortoiliac stenosis 3. Multifocal moderate stenoses of the left SFA, and popliteal artery treated with balloon angioplast y to 5 mm with improved morphology and flow 4. 50% stenosis left tibial peroneal trunk, status post balloon angioplasty 3 mm 5. Single vessel runoff on the left via the peroneal artery, as described above in greater detail 6. High-grade stenosis distal right SFA. 7. Occlusion of the right anterior tibial artery. Peroneal artery is the predominant blood supply to the right foot with heavily diseased left posterior tibial artery. 8. Though patient's claudication is relatively less on the right side, given history of wounds, recom mend endovascular intervention to and to improve blood flow to the patient's right leg and foot. Electronically signed by: Earl Starkey MD (12/31/2020 8:25 AM) [id number]
== END 2020-12-30 13:10 | disposition home or self-care (01) ==
LOC: INTRAD 07:07
PROVIDERS: ATTEND Family Medicine
DX: I73.9 Peripheral vascular disease, unspecified (principal); I10 Essential (primary) hypertension; I25.10 Atherosclerotic heart disease of native coronary artery without angina pectoris; E11.9 Type 2 diabetes mellitus without complications; E78.00 Pure hypercholesterolemia, unspecified; F41.9 Anxiety disorder, unspecified; F32.9 Major depressive disorder, single episode, unspecified; Z79.82 Long term (current) use of aspirin; Z79.4 Long term (current) use of insulin; Z79.899 Other long term (current) drug therapy; Z98.890 Other specified postprocedural states; Z88.2 Allergy status to sulfonamides
CPT/HCPCS: 37224; 37228; 75625; 75716; 76937; 99152; 99153; C1725; C1760; C1769; C1892; C1894; J0360; J1644; J2250; J3010; J3490; Q9967; G0269

== ENCOUNTER 2021-02-12 14:49 | Emergency (ER) | payer OTHER, MEDICARE ==
[~2021-02-12] VITALS: Ht 167.6 cm; Wt 63.6 kg
[~2021-02-12 14:49] MED LIST changes: +CLOP75TA PO; +HYDR-2761 PO
--- NOTE | 2021-02-12 15:17 | PHYS DOC ---
Past Medical History Past Medical History: Anxiety, CAD, Depression, Diabetes-Type II, High Ch olesterol, Heart Disease, Hypertension Past Surgical History: Coronary Bypass Surgery, Other Additional Past Surgical Histo: liver biopsy Smoking Status: Never Smoker Alcohol Use: None Drug Use: None General Adult EDM: Chief Complaint: MECHANICAL FALL HPI: HPI: Patient is a 75 year old female presents to the emergency department reporting her brought her here because of a bump on her forehead. Patient states that approximately an hour ago she was sitting on the toilet in her bathroom at [employer] and bent forward to wipe when she lost her balance and hit her forehead against the wall, patient states she did not fall to the ground, patient denies hitting her head on the ground. Patient denies any forehead pain, head pain, headaches, neck pain, visual disturbances, dizziness, denies syncopal episodes, denies being knocked out. Patient denies chest pain, shortness of breath, recent fever or chills. Patient denies any other physical complaints or physical concerns. Patient reports she has had no pain. Patient states she has not received the COVID-19 virus vaccination. Review of Systems: Review of Systems: 14 body systems of review of systems have been reviewed. See HPI for pertinent positives and negative responses, otherwise all other systems are negative, nonpertinent or noncontributory. Constitutional: Negative except as outlined in HPI above. Skin: Negative except as outlined in HPI above. Eyes: Negative except as outlined in HPI above. HENT: Negative except as outlined in HPI above. Respiratory: Negative except as outlined in HPI above. Cardiovascular: Negative except as outlined in HPI above. GI: Negative except as outlined in HPI above. : Negative except as outlined in HPI above. Musculoskeletal: Negative except as outlined in HPI above. Integument: Negative except as outlined in HPI above. Neurologic: Negative except as outlined in HPI above. Endocrine: Negative except as outlined in HPI above. Lymphatic: Negative except as outlined in HPI above. Psychiatric: Negative except as outlined in HPI above. Heart Score: C/O Chest Pain: No Risk Factors: Risk Factors: DM, Current or recent (<one month) smoker, HTN, HLP, family history of CAD, obesity. Risk Scores: Score 0 - 3: 2.5% MACE over next 6 weeks - Discharge Home Score 4 - 6: 20.3% MACE over next 6 weeks - Admit for Clinical Observation Score 7 - 10: 72.7% MACE over next 6 weeks - Early Invasive Strategies Allergies: Allergies: Allergies Coded Allergies Type Severity Reaction Last Updated Verified Sulfa (Sulfonamide Antibiotics) Allergy Intermediate Rash 06/13/19 Yes Physical Exam: PE: Constitutional: Well developed, well nourished, no acute distress, non-toxic appearance. 75-year-old female in no apparent distress. HENT: Normocephalic, has contusion to left side forehead above the brow. Skin is intact. No skull depressions appreciated. No malocclusion, bilateral TMs wi thin normal limits, no drainage from external auditory canals, no raccoon eyes, no hughes's sign. Eyes: Conjunctiva normal, no discharge. Satisfactory 6 cardinal eye movements Neck: Normal range of motion, no stridor. No midline spinal tenderness appreci ated. Cardiovascular: No cyanosis appreciated, distal cap refill less than 2 seconds. Regular rate and rhythm. Lungs & Thorax: Patient is in no respiratory distress, no audible adventitious lung sounds appreciated. No adventitious lung sounds appreciated, lung sounds clear to auscultate all lung bah. Abdomen: Nontender, no abnormalities noted. Skin: Warm, dry, no erythema, no rash. Back: No tenderness, no deformities. Extremities: No tenderness, no cyanosis, no clubbing, ROM intact, no edema. Neurologic: Alert and oriented X 3, normal motor function, normal sensory function, no focal deficits noted. Psychologic: Affect normal, judgement normal, mood normal. EKG: EKG: [] Radiology/Procedures: Radiology/Procedures: PATIENT: ENOC DOTSONOUNT: [id number] : 1945 LOCATION: ER AGE: 75 SEX: F EXAM STATUS: REG ER ORD. PHYSICIAN: ALEXIS DUNCAN APRN REASON: fall, forehead contusion PROCEDURE: CT HEAD AND CERVICAL SPINE WO EXAM: Head and cervical spine CT without contrast. HISTORY: Trauma. TECHNIQUE: Computed tomographic images of the head and cervical spine were obtained without contrast. *One or more of the following individualized dose reduction techniques were utilized for this examination: 1. Automated exposure control. 2. Adjustment of the mA and/or kV according to patient size. 3. Use of iterative reconstruction technique. COMPARISON: 04/26/2018. FINDINGS: Head: There is a large left frontal scalp and left supraorbital soft tissue hematoma. There is no acute intracranial hemorrhage. There is no mass effect or midline shift. There is no hydrocephalus. There is cerebral atrophy. There is decreased attenuation within the cerebral white matter, likely due to chronic small vessel disease. There is a suspected superimposed small chronic infarct within the right frontal lobe. There is near complete opacification of the right aspect of the sphenoid sinus with sinus wall thickening due to chronic sinusitis. There is minimal left mastoid fluid. There is no suspicious calvarial lesion. The temporal minimal joints are intact. Cervical spine: There is mild degenerative listhesis at the upper and mid cervical levels. There is degenerative endplate remodeling and disc space narrowing predominantly at C5-C6. There is multilevel facet arthropathy. There is no fracture or suspicious osseous lesion. The combination of degenerative changes results in mild right foraminal stenosis at C2-C3, severe left foraminal stenosis at C3-C4, mild central canal stenosis at C4-C5, and moderate to severe bilateral foraminal and moderate stenosis at C5-C6. There are pleural effusions at the lung apices, not formally assessed on this exam. IMPRESSION: 1. Large left frontal scalp and left supraorbital soft tissue hematoma. There is no acute intracranial finding. 2. Bilateral cerebral white matter changes, likely due to chronic small vessel disease. There may be superimposed small chronic infarct within the right frontal lobe. 3. Cerebral atrophy. 4. Multilevel degenerative change involving the cervical spine, resulting in stenosis as before mentioned levels. 5. Suspected pleural effusions, partially included on the [id number]. Electronically signed by: Yamel Yoon MD (02/12/2021 3:42 PM) [id number] Course & Med Decision Making: Course & Med Decision Making Pertinent Labs and Imaging studies reviewed. (See chart for details) 75-year-old female, vital signs reviewed, presents to the emergency department concerning a bump on her forehead. Patient's description of events is consistent with patient's physical examination and presentation. While patient did not have a full ground-level fall, stumbled forward and struck head on wall, patient does have a history of atrial fibrillation which she takes Eliquis for, related to this will order CT head and C-spine. CT head C-spine negative for intracranial injury or bony injury, shows contusion of left frontal scalp and supra orbital area of the left which is consistent with patient's physical examination and findings. Discussed findings with patient and patient's at bedside, upon reevaluation of patient, patient remains in no apparent distress, nontoxic in appearance, is hemodynamically stable, continues to deny pain to her forehead. Discussed with patient and patient's signs and symptoms of concussive syndrome, head injury precautions, strict return to ER precautions and concerns, continue close follow-up with primary care physician Dr. Santana Mireles, ice packs to forehead 30 minutes on 30 minutes off for the next 40 to 72 hours, patient and patient's amenable to ED discharge planning. Discussed with the patient all findings and diagnostic testing as well as the need to follow-up with their primary care provider for further evaluation and treatment or return to the ED if any new or worsening symptoms. Strict return precautions were also discussed at length, the patient voiced understanding and agreement with the discharge planning. The patient was nontoxic in appearance, in no apparent distress, and hemodynamically stable at the time of disposition. Dragon Disclaimer: [employer] Disclaimer: This electronic medical record was generated, in whole or in part, using a voice recognition dictation system. Departure Departure Impression: Primary Impression: Fall Qualified Codes: W19.XXXA - Unspecified fall, initial encounter Additional Impression: Forehead contusion Qualified Codes: S00.83XA - Contusion of other part of head, initial encounter Disposition: 01 HOME / SELF CARE / HOMELESS Condition: GOOD Referrals: SANTANA MIRELES MD (PCP) Patient Instructions: Contusion, Eye Contusion, Facial or Scalp Contusion, Fall Prevention and Home Safety Additional Instructions: You were seen today here in the emergency department for evaluation of the bump on your forehead after you stumbled forward and hit your head against the wall. A CT scan of your head and neck was performed, there were no concerning findings of intracranial injury or fractured bones, there is no bleeding in your brain. It does show a contusion around the left side of your forehead which you are aware of. We have been treating this with ice packs 30 minutes on and 30 minutes off while in the ER. Please continue this at home for the next 24 to 72 hours. You did not complain of any pain today in the emergency department, however you may experience headaches or head pain from this injury, you may take Tylenol for pain. You has stated that you see Dr. Mireles soon, please keep this appointment. Please return to the emergency department for worsening symptoms or other concerns. Thank you for visiting our Emergency Department. It was a pleasure taking care of you today in the emergency department and we appreciate you trusting us with your care. If any additional problems come up don't hesitate to return to visit us. Please follow up with your primary care provider so they can plan additional care if needed and know about the problem that you had. If symptoms worsen come back to the Emergency Department. Any concerning symptoms that start such as chest pain, shortness of air, weakness or numbness on one side of the body, running high fevers or any other concerning symptoms return to the ER. EMERGENCY DEPARTMENT GENERAL DISCHARGE INSTRUCTIONS Thank you for coming to [facility] Emergency Department (ED) today and trusting us with you care. We trust that you had a positive experience in our Emergency Department. If you wish to speak to the department management, you may call the Director at [phone]. YOUR FOLLOW UP INSTRUCTIONS ARE FOLLOWS: 1. Do you have a private Doctor? If you do not have a private doctor, please ask for a resource list of physicians or clinics that may be able to assist you with follow up care. 2. The Emergency Physicain has interpreted your x-rays. The X-Ray specialist will also review them. If there is a change in the findings, you will be notified in 48 hours when at all possible. 3. A lab test or culture has been done, your results will be reviewed and you will be notified if you need a change in treatment. ADDITIONAL INSTRUCTIONS AND INFORMATION: 1. Your care today has been supervised by a physician who is specially trained in emergency care. Many problems require more than one evaluation for a complete diagnosis and treatment. We recommend that you schedule your follow up appointment as recommended to ensure complete treatment of you illness or injury. If you are unable to obtain follow up care and continue to have a problem, or if your condition worsens, we recommend that you return to the ED. 2. We are not able to safely determine your condition over the phone nor are we able to give sound medical advice over the phone. For these safety reasons, if you call for medical advice we will ask you to come to the ED for further evaluation. 3. If you have any questions regarding these discharge instructions please call the ED at [phone]. SAFETY INFORMATION: In the interest of safety, wellness, and injury prevention; we encourage you to wear your sealbelt, if you smoke; quite smoking, and we encourage family to use a protective helmet for bicycling and other sporting events that present an increased risk for head injury. IF YOUR SYMPTOMS WORSEN OR NEW SYMPTOMS DEVELOP, OR YOU HAVE CONCERNS ABOUT YOUR CONDITION; OR IF YOUR CONDITION WORSENS WHILE YOU ARE WAITING FOR YOUR FOLLOW UP APPOINTMENT; EITHER CONTACT YOUR PRIMARY CARE DOCTOR, THE PHYSICIAN WHOSE NAME AND NUMBER YOU WERE GIVEN, OR RETURN TO THE ED IMMEDIATELY. ALEXIS DUNCAN APRN Feb 12, 2021 15:17
--- NOTE | 2021-02-12 15:44 | RAD ---
EXAM: Head and cervical spine CT without contrast. HISTORY: Trauma. TECHNIQUE: Computed tomographic images of the head and cervical spine were obtained without contrast. *One or more of the following individualized dose reduction techniques were utilized for this examina tion: 1. Automated exposure control. 2. Adjustment of the mA and/or kV according to patient size. 3. Use of iterative reconstruction technique. COMPARISON: 04/26/2018. FINDINGS: Head: There is a large left frontal scalp and left supraorbital soft tissue hematoma. There is no acu te intracranial hemorrhage. There is no mass effect or midline shift. There is no hydrocephalus. Ther e is cerebral atrophy. There is decreased attenuation within the cerebral white matter, likely due to chronic small vessel disease. There is a suspected superimposed small chronic infarct within the rig ht frontal lobe. There is near complete opacification of the right aspect of the sphenoid sinus with sinus wall thicke belinda due to chronic sinusitis. There is minimal left mastoid fluid. There is no suspicious calvarial lesion. The temporal minimal joints are intact. Cervical spine: There is mild degenerative listhesis at the upper and mid cervical levels. There is d egenerative endplate remodeling and disc space narrowing predominantly at C5-C6. There is multilevel facet arthropathy. There is no fracture or suspicious osseous lesion. The combination of degenerative changes results in mild right foraminal stenosis at C2-C3, severe left foraminal stenosis at C3-C4, mild central canal stenosis at C4-C5, and moderate to severe bilateral foraminal and moderate stenosi s at C5-C6. There are pleural effusions at the lung apices, not formally assessed on this exam. IMPRESSION: 1. Large left frontal scalp and left supraorbital soft tissue hematoma. There is no acute intracrania l finding. 2. Bilateral cerebral white matter changes, likely due to chronic small vessel disease. There may be superimposed small chronic infarct within the right frontal lobe. 3. Cerebral atrophy. 4. Multilevel degenerative change involving the cervical spine, resulting in stenosis as before menti oned levels. 5. Suspected pleural effusions, partially included on the [id number]. Electronically signed by: Yamel Yoon MD (02/12/2021 3:42 PM) [id number]
[2021-02-12 16:10] VITALS: BP 124/66
[2021-02-14] MEDS ORDERED: IRBE150T21 PO (20:24)
[2021-02-14] MEDS ORDERED: FERR325T14 PO (20:24)
[2021-02-14] MEDS ORDERED: APIX5TAB PO (20:24)
[2021-02-15] MEDS ORDERED: METO-239 PO (12:08)
[2021-02-15] MEDS ORDERED: ATOR40TA59 PO (12:08)
[2021-02-16] MEDS ORDERED: POTA10TA6 PO (15:12)
[2021-02-16] MEDS ORDERED: FURO-68 PO (15:12)
[2021-02-16] MEDS ORDERED: CLOP75TA PO (15:12)
== END 2021-02-12 16:10 | disposition home or self-care (01) ==
LOC: ER 14:49
DX: S00.83XA Contusion of other part of head, initial encounter (principal); E11.9 Type 2 diabetes mellitus without complications; E78.00 Pure hypercholesterolemia, unspecified; I11.9 Hypertensive heart disease without heart failure; I25.10 Atherosclerotic heart disease of native coronary artery without angina pectoris; Z95.1 Presence of aortocoronary bypass graft; W18.39XA Other fall on same level, initial encounter; Y93.89 Activity, other specified; Y92.89 Other specified places as the place of occurrence of the external cause; Y99.8 Other external cause status
CPT/HCPCS: 70450; 72125; 99285-25

== ENCOUNTER → 2021-05-20 | Outpatient (CLI) | payer OTHER ==
[2021-02-16 15:00] VITALS: BP 126/60
[~2021-05-20] MED LIST changes: +APIX5TAB PO; +ATOR40TA59 PO; -CITA40TA5 PO; +CITA40TA6 PO; +FERR325T14 PO; +METO-239 PO; +POTA-112 PO
--- NOTE | 2021-05-21 12:14 | RAD ---
Bilateral lower extremity arterial duplex Doppler examination with spectral analysis HISTORY: Leg pain Sonographic examination alert extremities was performed bilaterally and multiple static images were o btained. In addition color Doppler was applied as well as arterial waveform spectral analysis. FINDINGS: There is calcified plaque seen throughout the arteries bilaterally. Right lower extremity: There is biphasic flow from the common femoral artery to the mid SFA and monophasic flow throughout t he remaining right lower extremity. There is elevated velocity in the distal SFA with a peak systolic velocity of 283 cm/s. Left lower extremity: There is biphasic flow from the common femoral artery to the popliteal artery and [employer] proximally on t he left. Below the knee there is monophasic flow in the distal [employer] and peroneal artery and biphasic f low in the MARY and DPA. There is increased flow within the distal left SFA with a peak systolic veloc ity of 183 cm/s. IMPRESSION: 1. Significant atherosclerotic disease with calcification throughout and with biphasic flow and monop hasic flow throughout. Disease in the distal abdominal aorta or common or external iliac arteries is possible. 2. Elevated velocities indicates greater than 50 percent stenosis the distal left SFA and probable gr eater than 70 percent stenosis of the distal right SFA. Electronically signed by: Geremias Jean-Baptiste III, MD (05/21/2021 12:12 PM) [facility]
== END ==
LOC: US 15:50
PROVIDERS: ATTEND Family Medicine
DX: I70.203 Unspecified atherosclerosis of native arteries of extremities, bilateral legs (principal)
CPT/HCPCS: 93925